=== PATIENT | female | born 1960 | race Caucasian/White ===

== ENCOUNTER 2016-09-30 17:29 | Inpatient (IN) | payer OTHER, MEDICARE ==
[~2016-09-30] VITALS: Ht 167.6 cm; Wt 49.9 kg
--- NOTE | 2016-09-30 17:36 | NUR ---
PT OT TRIAGE WITH C/O +SI WITH PLAN TO OVERDOSE ON BENADRYL. HX OF ANXIETY, DEPRESSION,ADHD. PT DENIES HI, ADMITS TO DRINKING WHISKEY AND SMOKING MARIJUANA LAST NIGHT. VSS. PT TO .
--- NOTE | 2016-09-30 17:56 | NUR ---
PT IN [place] STRETCHER. WANDED AND CHANGED INTO BLUE SCRUBS. FLAT AFFECT. [place] CHURN TENDER TO SEE PT
[2016-09-30] MEDS ORDERED: ALPRAZOLAM2 M2 PO (17:57)
[2016-09-30] MEDS ORDERED: EFFEXOR XR150 M1 PO (17:57)
[2016-09-30] MEDS ORDERED: ADDERALL 30 MG30 MG PO (17:57)
--- NOTE | 2016-09-30 18:17 | NUR ---
PT OPENLY TALKING ABOUT DEPRESSION AND SI. STATES HER ABOUT 5 YEARS AGO AND THAT IS WHEN SHE BECAME DEPRESSED. RECENTLY WAS PACKING FOR A MOVE AND BECAME MORE DEPRESSED SHE PACKED UP PERSONAL BELONGING. VERBALIZED FEELINGS OF UNWORTHINESS A MOTHER. FEELS HER KIDS WOULD BE BETTER OFF WITHOUT HER, ABLE TO COLLECT HER LIFE INSURANCE. PT CALM AND COOPERATIVE AT PRESENT
--- NOTE | 2016-09-30 18:43 | ED PSYCHIATRIC COMPLAINT ---
History of Present Illness General Chief Complaint: Psychiatric Related Complaint Stated Complaint: +SI Source: patient Exam Limitations: no limitations Vital Signs & Intake/Output Vital Signs & Intake/Output Vital Signs Date Time Temp Pulse Resp B/P B/P Pulse O2 O2 Flow FiO2 Mean Ox Delivery Rate 10/01 1045 97.2 98 18 110/66 100 10/01 0621 96.9 81 18 99/58 98 Room Air 09/30 2239 98.4 80 18 114/72 99 Room Air 09/30 2042 96.8 95 20 114/74 98 Room Air 09/30 1800 Room Air 09/30 1735 98.5 110 18 105/72 98 Room Air ED Intake and Output 10/01 0000 09/30 1200 Intake Total Output Total Balance Patient 110 lb Weight Weight Reported by Patient Measurement Method Allergies Coded Allergies: No Known Allergies (09/30/16) Reconcile Medications Alprazolam 2 MG TABLET 1 TAB PO TID ANXIETY (Reported) Dextroamphetamine/Amphetamine (Adderall 30 MG Tablet) 30 MG TABLET 1 TAB PO TID OCD/ADD/COMPULSIONS (Reported) Venlafaxine HCl (Effexor XR) 150 MG CAP.ER.24H 1 CAP PO DAILY MENTAL HEALTH ( Reported) Triage Note: PT OT TRIAGE WITH C/O +SI WITH PLAN TO OVERDOSE ON BENADRYL. HX OF ANXIETY, DEPRESSION,ADHD. PT DENIES HI, ADMITS TO DRINKING WHISKEY AND SMOKING MARIJUANA LAST NIGHT. VSS. PT TO . Triage Nurses Notes Reviewed? yes HPI: Patient is a 56 year old female presents complaining of depression. "I lost all hope, my kids would be better off without me". Depression severe for the past 6 days since patient was looking through a box with photos of her that 5 years ago. Suicidal ideation with thoughts of jumping off of a bridge, walking in front of a train, or overdosing on Benadryl. Patient reports she has attempted overdose on Benadryl previously. Patient drank 2 drinks of alcohol yesterday with mild improvement of her symptoms. Reports she has been compliant with her Effexor, xanax and adderall. Denies overdose, current suicide attempt, cocaine or heroin use. (DEEPA GILL,SOL) Past History Travel History Traveled to [place] past 21 day No Medical History Any Pertinent Medical History? see below for history Psychiatric: anxiety, depression, ADHD Surgical History Surgical History: non-contributory Psychosocial History What is your primary language Taiwanese Tobacco Use: Current Not Daily ETOH Use: occasional use Illicit Drug Use: marijuana Family History Hx Contributory? No (SOL ISRAEL) Review of Systems Review of Systems Constitutional: Denies: chills, fever. EENTM: Reports: no symptoms. Respiratory: Denies: cough, short of breath. Cardiovascular: Denies: chest pain. GI: Denies: abdominal pain. Genitourinary: Reports: no symptoms. Musculoskeletal: Reports: joint pain (left wrist, hx recent fx). Skin: Reports: no symptoms. Neurological/Psychological: Reports: see HPI. Hematologic/Endocrine: Reports: no symptoms. Immunologic/Allergic: Reports: no symptoms. (SOL ISRAEL) Physical Exam Physical Exam General Appearance: alert, awake Head: atraumatic, normal appearance Eyes: Bilateral: normal appearance, PERRL, EOMI. Ears, Nose, Throat: normal pharynx, normal ENT inspection, hearing grossly normal Neck: normal inspection, supple, full range of motion, no midline tenderness Respiratory: normal breath sounds, no respiratory distress, lungs clear Cardiovascular: tachycardia (mild, regular rhythm), no appreciable murmur Gastrointestinal: soft, non-tender Extremities: normal range of motion, cast in place on left wrist. Ecchymosis appears subacute left arm. Neurological/Psychiatric: awake, alert, depressed affect with suicidal ideation Behavoir/Eye Contact/Speech: cooperative Thoughts/Hallucinations: no apparent hallucination Skin: warm/dry SAD PERSONS SAD PERSONS Response Value Age <19 or >45 years? yes 1 Depression/Hopelessness? yes 2 Previous Attempts/Psych Care yes 1 Excessive Ethanol/Drug Use? yes 1 Rational Thinking Loss? yes 2 Single//? yes 1 Stated Future Intent? yes 2 Total 10 SAD PERSONS Done? yes (SOL ISRAEL) Progress Differential Diagnosis: drug intoxication, drug overdose, drug withdrawal, electrolyte abnormality, IC hem/mass/tumor, alcohol intoxication, alcohol withdrawal Plan of Care: Orders Procedure Date/time Status Regular Diet 10/01 B Active Continuous Observation Monitor 10/01 1900 Active Continuous Observation Monitor 10/01 1500 Active Admit to inpatient psych 10/01 1405 Active Continuous Observation Monitor 10/01 1100 Active Continuous Observation Monitor 10/01 0700 Active Continuous Observation Monitor 04/25 1837 Active ACETOMINOPHEN 09/30 1836 Complete SALICYLATE 09/30 1836 Complete ETHANOL 09/30 1836 Complete COMPREHENSIVE METABOLIC PANEL 09/30 1836 Complete CBC WITHOUT DIFFERENTIAL 09/30 1836 Complete ED CRISIS PSYCH CONSULT 09/30 1836 Active URINE DRUG SCREEN FOR ER ONLY 09/30 1751 Complete Current Medications Sig/Luann Start time Last Medication Dose Stop Time Status Admin Venlafaxine HCl 150 MG 0800 10/02 0800 UNVr (Effexor Xr) Laboratory Tests 09/30/16 1855: Anion Gap 14, Estimated GFR > 60, BUN/Creatinine Ratio 32.0 H, Glucose 140 H, Calcium 9.4, Total Bilirubin 0.4, AST 12 L, ALT 19, Alkaline Phosphatase 109, Total Protein 6.3, Albumin 3.6, Globulin 2.7, Albumin/Globulin Ratio 1.3, CBC w Diff NO MAN DIFF REQ, RBC 4.13 L, MCV 84.8, MCH 27.8, RDW 14.5, MPV 7.0 L, Gran % 55.8, Lymphocytes % 33.1, Monocytes % 8.6, Eosinophils % 2.5, Basophils % 0 L, Absolute Granulocytes 2.1, Absolute Lymphocytes 1.3, Absolute Monocytes 0.3, Absolute Eosinophils 0.1, Absolute Basophils 0, PUBS MCHC 32.8 L, Salicylates < 1.0, Acetaminophen < 10.0 L, Serum Alcohol < 10.0 09/30/16 175: Urine Opiates Screen < 100.00, Methadone Screen 144, Barbiturate Screen < 60, Ur Phencyclidine Scrn < 6.00, Amphetamines Screen > 1450 H, U Benzodiazepines Scrn > 800 H, Urine Cocaine Screen > 1000 H, Urine Cannabis Screen 73.20 H Patient unable to be evaluated by orthopedic designer. To be re-evaluated in the morning. Signed out to Dr. Joe at shift change. (SOL ISRAEL) Hand-Off Endorsed To: RAHUL JOE MD Endorsed Time: 0100 Pending: consult (crisis) (SOL [place]RAEL) Hand-Off Endorsed To: LAKESHIA RUFFIN MD Endorsed Time: 0700 Pending: consult (RAHUL JOE MD) Comments: To be hospitalized on [facility] (LAKESHIA RUFFIN MD) Departure Departure Disposition: STILL A PATIENT Condition: Stable Clinical Impression Primary Impression: Depression Qualifiers: Depression Type: unspecified Qualified Code: F32.9 - Major depressive disorder, single episode, unspecified Secondary Impressions: Polysubstance abuse Referrals: PATIENT HAS NO PRIMARY CARE DR (PCP/Family) Departure Forms: Customer Survey General Discharge Information (SOL ISRAEL) PA/WARDROBE CUSTODIAN Co-Sign Statement Statement: ED Attending supervision documentation- [X] I saw and evaluated the patient. I have also reviewed all the pertinent lab results and diagnostic results. I agree with the findings and the plan of care as documented in the PA's/WARDROBE CUSTODIAN's documentation. [X] I have reviewed the ED Record and agree with the PA's/WARDROBE CUSTODIAN's documentation. [] Additions or exceptions (if any) to the PAs/WARDROBE CUSTODIAN's note and plan are summarized below: [] (HEATH ZHANG,RAHUL Lam) Departure Time of Disposition: 1405 Psych Admission Note Psychiatric Admission: I have seen and evaluated SWETHA HAMM. I have also reviewed all the pertinent lab results and diagnostic results. HANSELADDISWETHA will be admitted to our inpatient Psychiatric unit for treatment and care. (LAKESHIA RUFFIN MD)
--- NOTE | 2016-09-30 19:09 | NUR ---
LABS SENT (BLUE,SST,LAV,GARVEY)
[2016-09-30 19:23] LABS: MEAN CORPUSCULAR HGB CONC 32.8 G/DL (33.0-37.0); WHITE BLOOD CELL COUNT 3.9 /CUMM (4.8-10.8)
[2016-09-30 19:33] LABS: ABSOLUTE BASOPHIL COUNT 0 /CUMM (0.0-0.2); ABSOLUTE EOSINOPHIL COUNT 0.1 /CUMM (0.0-0.7); ABSOLUTE GRANULOCYTE CT 2.1 /CUMM (1.4-6.5); ABSOLUTE LYMPH COUNT 1.3 /CUMM (1.2-3.4); ABSOLUTE MONOCYTE COUNT 0.3 /CUMM (0.10-0.60); BASOPHIL % 0 % (0.0-2.0); EOSINOPHIL % 2.5 % (0-5); MEAN CORPUSCULAR HGB 27.8 PG (27.0-31.0); MEAN CORPUSCULAR VOLUME 84.8 FL (81.0-99.0); PLATELET COUNT 247 /CUMM (130-400); RBC DISTRIBUTION WIDTH 14.5 % (11.5-14.5); RED BLOOD CELL CT 4.13 /CUMM (4.20-5.40)
[2016-09-30 19:53] LABS: GRANULOCYTE % 55.8 % (42.2-75.2)
--- NOTE | 2016-09-30 20:02 | NUR ---
PT DENIES DRUG USE OTHER THEN MARIJUANA. URINE DRUG SCREEN POSITIVE FOR COCAINE. EXPLAINED TO PT SHE NEEDS TO HAVE DRUGS OUT OF HER SYSTEM BEFORE BEING SEEN BY CRISIS.
--- NOTE | 2016-09-30 20:03 | NUR ---
MEDICATED WITH XANAX, HOME DOSE
--- NOTE | 2016-09-30 21:22 | NUR ---
RESTING QUIETLY IN ROOM
--- NOTE | 2016-09-30 21:55 | NUR ---
Crisis unable to evaluate pt this evening. Pt presenting as sedated, slurred speech, difficulty keeping her eyes open. Pt denies drug or etoh use. Pt reports SI/depression and history of inpatient tx. Pt informed she will be evaluated by crisis in the morning.
--- NOTE | 2016-09-30 22:30 | NUR ---
PT ASLEEP ON BED IN ROOM 14. PT TO BE EVALUATED BY CRISIS IN AM. SITTER AT [facility] FOR SAFETY. RESPIRATIONS EQUAL AND UNLABORED.
--- NOTE | 2016-09-30 22:55 | ED PSY CRISIS COLLATERAL NOTE ---
Collateral Note Collateral Note Family/Inform/Addie Contacts: Collateral provided by pt son Rigo Mitchell [phone]. He reports pt had to move out of apartment on Thursday and has been living in a hotel. He reports past week pt has been anxious and depressed saying "crazy stuff". He reports pt has been diagnosed bi-polar. He reports pt has been drinking and using cocaine. he reports she has a hx of inpatient psychiatric treatment and he thinks she was at [facility] for about a week two months ago. He isn't aware of any outpatient treatment. He thinks pt is prescribed Xanax and adderall for ADHD as well as an antidepressant. He reports he brought her to [facility] ED for an evaluation.
--- NOTE | 2016-09-30 23:31 | NUR ---
ASSUMED CARE OF PT FROM KASSIE PATEL. PT SLEEPING WITH REGULAR RR NOTED. SITTER REMAINS AT [facility] FOR SAFETY. WILL CTM.
--- NOTE | 2016-10-01 01:49 | NUR ---
PT SLEEPING WITH REGULAR EVEN AND UNLABORED RESPIRATIONS SITTER REMAINS AT BEDSIDE FOR SAFETY WILL CTM
--- NOTE | 2016-10-01 03:28 | NUR ---
PT SLEEPING WITH REGULAR RR NOTED. SITTER REMAINS PRESENT.
--- NOTE | 2016-10-01 06:21 | NUR ---
PT AWAKE AND ALERT. DENIES ANY NEEDS AT THIS TIME. AWARE BREAKFAST WILL BE COMING. PT CALM AND COOPERATIVE. SITTER REMAINS PRESENT.
--- NOTE | 2016-10-01 07:15 | NUR ---
PT SITTING UP ON STRETCHER AT THIS TIME, OFFERS NO COMPLAINTS. SITTER REMAINS PRESENT. WILL CTM
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
--- NOTE | 2016-10-01 10:27 | NUR ---
PT MEDICATED PER EMAR AT THIS TIME.
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
--- NOTE | 2016-10-01 13:39 | NUR ---
PER CRISIS, PT TO BE ADMITTED TO [facility]
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
--- NOTE | 2016-10-01 17:10 | NUR ---
REPORT GIVEN TO [facility]. DISTRIBUTION CALLED FOR PT TRNASPORT
[2016-10-01 17:54] VITALS: BP 130/62
[2016-10-01 20:04] VITALS: BP 129/79
--- NOTE | 2016-10-01 21:18 | NUR ---
PT IS VISIBLE ON UNIT, SOCIAL WITH PEERS AND MAKING FREQUENT PHONE CALLS THROUGHOUT EVENING. AT TIMES PT CAN BE PRESSURED WHEN IT COMES TO MEDS BUT OVERALL PT IS COOPERATIVE AND COMPLIANT WITH STAFF. ATTENDED WRAP UP MEETING. PT DID DISCLOSE SI AT 1600 VITAL SIGNS BUT REPORTS NO PLAN OR INTENTION TO HARM SELF WHILE ON UNIT. PT HAS AN ANXIOUS MOOD AND IRRITABLE AFFECT.
--- NOTE | 2016-10-02 06:07 | NUR ---
PT HYPERVERBAL AT POINTS. TYLENOL FOR PAIN. PT WOULD LIKE A PRN FOR SLEEP.
[2016-10-02 07:54] VITALS: BP 130/75
--- NOTE | 2016-10-02 08:56 | Cons- Endocrinology ---
General Information and HPI Consulting Request Date of Consult: 10/02/16 Requested By: Yareli Reason for Consult: evaluation and management of hyperthyroidism Source of Information: patient Exam Limitations: no limitations History of Present Illness: Patient was diagnosed with Graves' disease approximately 6 years ago. She was on medication for a short period of time. Because she left her malariologist and then the treatment was discontinued. Over the past couple of weeks, she has lost 12 pounds, has been feeling anxious, depressed and has had difficulty in sleeping. She was admitted for major depression and suicidal ideation. Blood work demonstrated TSH less than 0.015 and free T4 6.02. Allergies/Medications Allergies: Coded Allergies: No Known Allergies (09/30/16) Home Med List: Alprazolam 2 MG TABLET 1 TAB PO TID ANXIETY (Reported) Dextroamphetamine/Amphetamine (Adderall 30 MG Tablet) 30 MG TABLET 1 TAB PO TID OCD/ADD/COMPULSIONS (Reported) Venlafaxine HCl (Effexor XR) 150 MG CAP.ER.24H 1 CAP PO DAILY MENTAL HEALTH ( Reported) Review of Systems Review of Systems Constitutional: Reports: unexplained weight loss. Cardiovascular: Denies: chest pain, palpitations. Respiratory: Denies: short of breath. GI: Denies: abdominal pain. Neurological/Psychological: Reports: anxiety, depressed, other (having difficulty sleeping). Hematologic/Endocrine: Reports: other (fine tremors). Past History Travel History Traveled to [place] past 21 day No Medical History Psychiatric: anxiety, depression, ADHD Endocrine: Grave's disease Blood Disorders: anemia Surgical History Surgical History: non-contributory Psychosocial History ETOH Use: occasional use Illicit Drug Use: marijuana Employment History Employment: Disability Profession/Employer: none Exam & Diagnostic Data Last 24 Hrs of Vital Signs/I&O Vital Signs Date Time Temp Pulse Resp B/P B/P Pulse O2 O2 Flow FiO2 Mean Ox Delivery Rate 10/02 0754 99.4 93 130/75 10/01 2004 98.7 90 129/79 10/01 1754 98.1 95 130/62 10/01 1640 98.6 76 18 126/86 98 Room Air 10/01 1420 97.7 93 15 124/76 98 Room Air Room Air 10/01 1045 97.2 98 18 110/66 100 Intake & Output 10/02 1600 10/02 0800 10/02 0000 Intake Total Output Total Balance Patient 110 lb Weight Physical Exam General Appearance: anxious, restless Ears, Nose, Throat: stare and lid lag; no Graves' ophthalmopathy Neck: thyromegaly Respiratory: lungs clear Cardiovascular: regular rate/rhythm Gastrointestinal: non-tender Extremities: no edema Labs/Andry Results: Laboratory Tests 09/30 09/30 09/30 1855 1837 1752 Chemistry Sodium (137 - 145 mmol/L) 139 Potassium (3.5 - 5.1 mmol/L) 3.9 Chloride (98 - 107 mmol/L) 99 Carbon Dioxide (22 - 30 mmol/L) 26 Anion Gap (5 - 16) 14 BUN (7 - 17 mg/dL) 16 Creatinine (0.5 - 1.0 mg/dL) 0.5 Estimated GFR (>60 ml/min) > 60 BUN/Creatinine Ratio (7 - 25 %) 32.0 H Glucose (65 - 99 mg/dL) 140 H Hemoglobin A1c (4.2 - 5.8 %) 5.5 Calcium (8.4 - 10.2 mg/dL) 9.4 Total Bilirubin (0.2 - 1.3 mg/dL) 0.4 AST (14 - 36 U/L) 12 L ALT (9 - 52 U/L) 19 Alkaline Phosphatase (<127 U/L) 109 Total Protein (6.3 - 8.2 g/dL) 6.3 Albumin (3.5 - 5.0 g/dL) 3.6 Globulin (1.9 - 4.2 gm/dL) 2.7 Albumin/Globulin Ratio (1.1 - 2.2 %) 1.3 Triglycerides (<150 mg/dL) 99 Cholesterol (<200 MG/DL) 139 LDL Cholesterol, Calc (65 - 129 mg/dL) 56 L HDL Cholesterol (40 - 60 mg/dL) 64 H Cholesterol/HDL Ratio (0.00 - 4.23 %) 2.2 Vitamin B12 (239 - 931 pg/mL) 261 Folate (2.76 - 20.0 ng/mL) 5.5 TSH (0.270 - 4.200 uIU/mL) < 0.015 L Free T4 (0.64 - 1.79 ng/dL) 6.02 H Thyroxine (T4) (4.5 - 10.9 ug/dL) 23.5 H Total T3 (0.97 - 1.69 ng/mL) Pending Thyroid Stim Immunoglob Pending Hematology CBC w Diff NO MAN DIFF REQ WBC (4.8 - 10.8 /CUMM) 3.9 L RBC (4.20 - 5.40 /CUMM) 4.13 L Hgb (12.0 - 16.0 G/DL) 11.5 L Hct (37 - 47 %) 35.0 L MCV (81.0 - 99.0 FL) 84.8 MCH (27.0 - 31.0 PG) 27.8 RDW (11.5 - 14.5 %) 14.5 Plt Count (130 - 400 /CUMM) 247 MPV (7.4 - 10.4 FL) 7.0 L Gran % (42.2 - 75.2 %) 55.8 Lymphocytes % (20.5 - 51.1 %) 33.1 Monocytes % (1.7 - 9.3 %) 8.6 Eosinophils % (0 - 5 %) 2.5 Basophils % (0.0 - 2.0 %) 0 L Absolute Granulocytes (1.4 - 6.5 /CUMM) 2.1 Absolute Lymphocytes (1.2 - 3.4 /CUMM) 1.3 Absolute Monocytes (0.10 - 0.60 /CUMM) 0.3 Absolute Eosinophils (0.0 - 0.7 /CUMM) 0.1 Absolute Basophils (0.0 - 0.2 /CUMM) 0 PUBS MCHC (33.0 - 37.0 G/DL) 32.8 L Immunology Thyroglobulin Antibody (< 61 U/mL) > 500 H Thyroid Peroxidase Ab (< 61 U/mL) > 1300 H Toxicology Salicylates (0 - 20.0 mg/dL) < 1.0 Urine Opiates Screen (>2000 NG/ML) < 100.00 Methadone Screen (>300 NG/ML) 144 Acetaminophen (10.0 - 30.0 ug/mL) < 10.0 L Barbiturate Screen (>200 NG/ML) < 60 Ur Phencyclidine Scrn (>25 NG/ML) < 6.00 Amphetamines Screen (>1000 NG/ML) > 1450 H U Benzodiazepines Scrn (>200 NG/ML) > 800 H Urine Cocaine Screen (>300 NG/ML) > 1000 H Urine Cannabis Screen (>50 NG/ML) 73.20 H Serum Alcohol (<10 MG/DL) < 10.0 Assessment/Plan Assessment/Plan Patient has hx of Graves' disease. Over the past couple of weeks, she has lost 12 pounds, has been feeling anxious, depressed and has had difficulty in sleeping. She was admitted for major depression and suicidal ideation. Blood work demonstrated TSH less than 0.015 and free T4 6.02. Her WBC was 3.9 on admission. 1. add-on TT3, thyroid antibody panel and TSI. 2. start Methimazole 10 mg twice a day. 3. start Propranolol 20 mg twice a day (hold it if her SBP is < 100 or HR is < 80); 4. monitor free T4 and CBC tomorrow. 5. Once her thyroid function is better controlled, patient should consider either JESSICA or thyroid surgery. The plan has been discussed with patient. will follow. Consult Acknowledgment - Thank you for your consult request.
[2016-10-02 12:25] VITALS: BP 119/72
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
--- NOTE | 2016-10-02 14:35 | SOCIAL WORKER PROG NOTE PSYCH ---
Social Work Progress Note Progress Note Pt unsure if she can manage her OCD symptoms without Adderall, she states she is feeling "uncomfortable, I usually have to count everything and organize, and the cubicles". She reports no one can touch anything in my house. Pt is irritable and depressed, feels abandonment and loss, and at this point feels suicidal. * Contacts with family and significant others in treatment, including family meeting(s) * Family attitudes * Community resource contacts and liaison with other clinicians/agencies
--- NOTE | 2016-10-02 14:35 | SOCIAL WORKER TX PLAN PSYCH ---
Treatment Plan - Please Document: - Evidence that there is ongoing collaboration between - the patient and the interdisciplinary team, - including the patient's active participation and - responsibility for engaging in the treatment regimen, - and that the treatment plan is individualized and - relevant to the patient's conditions. - Treatment plan should reflect documentation indicating - that all active therapeutic efforts are included. Strengths/Capabilities: reaches out for help, supportive family Physical Limitations (Interventions): recently broke her arm from falling and has a cast Problem/Goals #1 Problem #1: depression Goal (Short Term): Today I will attend 2 groups Today I will identify 2 stressors Goal (Detention): Today I will identify 2 positive supports Today I will work on recognizing 3 emotions I am feeling I will learn and utilize 3 coping skills Interventions: Learn ways to manage depressive symptoms accordingly and identify positive supports to manage life stressors and mood fluctuations. To use milieu support, as well as group and indiviudal therapy medication management Modalities: Encourage groups, education on mental health provide CBT treatment, family meeting. Relaxation, recovery based groups, symptom management Problem/Goals #2 Problem #2: alcohol dependence/abuse Goal (Short Term): Identify 3 triggers for use Identify 3 sober supports Identify 3 coping skills Goal (Quality Control Engineer): I will have family meeting on unit during my hospitalization I will attend all AA groups on unit I will set up aftercare for dual diagnosis program to address both mental health and substance abuse concerns Interventions: Learn ways to manage cravings, triggers and other symptoms related to addiction. Identify positive supports to manage life stressors and mood fluctuations. To use milieu support, as well as group and indiviudal therapy Modalities: Encourage groups, education on mental health provide CBT treatment, family meeting. Relaxation, recovery based groups, symptom management DSM5/PS Stressors/Medical Prob Diagnosis' (DSM 5, Stressors, Medical): Unspecified Depression F32.9, stim use d/o, f14.20, cannabis use d/o f12.20 Current GAF: 25 Treatment Team - Responsibilities of members of the treatment team include: - Medication Management- MD or PEARLER - Medication Administration and Monitoring- Nurse - Group Therapy- Occupational Therapist - 1:1 Therapy,Disch Planning,family involvement-Memorial Marker Designer
[2016-10-02 15:44] VITALS: BP 125/90
[2016-10-02 20:08] VITALS: BP 125/76
--- NOTE | 2016-10-02 22:11 | NUR ---
PT IS VISIBLE ON UNIT, MOSTLY STAYING TO HERSELF. PT HAS MINIMAL INTERACTION WITH PEERS. ATTENDED WRAP UP MEETING AND AA THIS EVENING. COOPERATIVE AND COMPLIANT WITH STAFF. NO COMPLAINTS OR SI REPORTED. PT HAS A STABLE MOOD AND IRRITABLE AFFECT.
--- NOTE | 2016-10-03 05:31 | NUR ---
PT SLEPT MUCH BETTER.
[2016-10-03 07:58] LABS: ABSOLUTE BASOPHIL COUNT 0 /CUMM (0.0-0.2); ABSOLUTE EOSINOPHIL COUNT 0.2 /CUMM (0.0-0.7); ABSOLUTE GRANULOCYTE CT 1.9 /CUMM (1.4-6.5); ABSOLUTE LYMPH COUNT 2.2 /CUMM (1.2-3.4); ABSOLUTE MONOCYTE COUNT 0.5 /CUMM (0.10-0.60); BASOPHIL % 0 % (0.0-2.0); EOSINOPHIL % 3.5 % (0-5); GRANULOCYTE % 39.8 % (42.2-75.2); HEMATOCRIT 35.8 % (37-47); MEAN CORPUSCULAR HGB 28.1 PG (27.0-31.0); MEAN CORPUSCULAR VOLUME 85.3 FL (81.0-99.0); MEAN PLATELET VOLUME 7.4 FL (7.4-10.4); PLATELET COUNT 253 /CUMM (130-400); RBC DISTRIBUTION WIDTH 14.4 % (11.5-14.5); RED BLOOD CELL CT 4.19 /CUMM (4.20-5.40); WHITE BLOOD CELL COUNT 4.9 /CUMM (4.8-10.8)
[2016-10-03 08:13] VITALS: BP 117/68
--- NOTE | 2016-10-03 08:21 | PN- Endocrinology ---
Assessment/Plan Assessment: Patient has hx of Graves' disease. Over the past couple of weeks, she has lost 12 pounds, has been feeling anxious, depressed and has had difficulty in sleeping. She was admitted for major depression and suicidal ideation. Blood work demonstrated TSH less than 0.015 and free T4 6.02. Her WBC was 3.9 on admission. Her TT3 was 4.67; anti TPO was > 1300 and anti TG > 500. On 10/02/2016 , She was started on Methimazole 10 mg twice a day and Propranolol 20 mg twice a day (hold it if her SBP is < 100 or HR is < 80). She feels slightly better. The lab report from this morning is still pending. Plan: 1. follow free T4 and CBC from this morning. 2. continue the current methimazole 10 mg twice a day and Propranolol 20 mg twice a day for now. will follow. Subjective Subjective: She feels slight better this morning. Her HR is between 67 and 93. Objective Last 24 Hrs of Vital Signs/I&O Vital Signs Date Time Temp Pulse Resp B/P B/P Pulse O2 O2 Flow FiO2 Mean Ox Delivery Rate 10/03 0813 97.7 77 117/68 10/02 2215 85 125/76 10/02 2008 98.9 85 125/76 10/02 1544 76 125/90 10/02 1225 67 119/72 10/02 1016 99.4 93 18 130/75 Results Pertinent Lab/Andry Results: Laboratory Tests 10/04 627 Chemistry Free T4 Pending Hematology CBC w Diff Pending WBC Pending RBC Pending Hgb Pending Hct Pending MCV Pending MCH Pending RDW Pending Plt Count Pending MPV Pending PUBS MCHC Pending
[2016-10-03 12:45] VITALS: BP 104/47
--- NOTE | 2016-10-03 14:05 | NUR ---
PT IS COMPLIANT AND COOPERATIVE. MOOD IS STABLE WITH A CONSTRICTED AFFECT. PT DENIES SI AT THIS TIME, NO COMPLAINTS OFFERED. PT WAS WITHDRAWN IN BED DURING THE AM- PRESENT MORE IN THE COMMUNITY AFTER LUNCH. PT IS INTERACTING WITH PEERS AND STAFF. PT HAS ATTENDED ONE GROUP. VITALS ARE STABLE, APPETITE IS GOOD.
[2016-10-03 16:24] VITALS: BP 107/57
--- NOTE | 2016-10-03 16:39 | SOCIAL WORKER PROG NOTE PSYCH ---
Social Work Progress Note Progress Note Pt reports she feels like " Im not needed, my kids not need me, I broke up with my bf in August, my exhusband of 20 years 5 years ago, my sister has cancer and I cant even look at her, what's the point of me being here". Pt states she is struggling with OCD symptoms, and feels suicidal, hopeless and lost. Pt was cooperative and agreed to signing releases for Vivek another exhusband and good friend and for her son Rigo.
[2016-10-03 20:05] VITALS: BP 112/65
--- NOTE | 2016-10-03 20:09 | History & Physical ---
General Information and HPI MD Statement: I have seen and personally examined SWETHA HAMM and documented this H&P. The patient is a 56 year old F who presented with a patient stated chief complaint of "I lost all hope my kids would be better off without me"]. Source of Information: patient Exam Limitations: no limitations History of Present Illness: 56 year old female C/o of depression and SI, also lost 12 lbs in the last couple of weeks, feels anxious and depressed not sleeping, will be admitted for evaluation and treatment. Allergies/Medications Allergies: Coded Allergies: No Known Allergies (09/30/16) Home Med list Alprazolam 2 MG TABLET 1 TAB PO TID ANXIETY (Reported) Dextroamphetamine/Amphetamine (Adderall 30 MG Tablet) 30 MG TABLET 1 TAB PO TID OCD/ADD/COMPULSIONS (Reported) Venlafaxine HCl (Effexor XR) 150 MG CAP.ER.24H 1 CAP PO DAILY MENTAL HEALTH ( Reported) Compliance With Home Meds: UNKNOWN Past History Travel History Traveled to [place] past 21 day No Medical History Psychiatric: anxiety, depression, ADHD Endocrine: Grave's disease Blood Disorders: anemia Isolation History: Standard Surgical History Surgical History: non-contributory Past Family/Social History Psychosocial History Where do you live? Home ETOH Use: occasional use Illicit Drug Use: marijuana Employment History Employment Disability Profession/Employer none Review of Systems Review of Systems Constitutional: Reports: see HPI. Exam & Diagnostic Data Last 24 Hrs of Vital Signs/I&O Vital Signs Date Time Temp Pulse Resp B/P B/P Pulse O2 O2 Flow FiO2 Mean Ox Delivery Rate 10/03 1624 84 107/57 10/03 1245 76 104/47 10/03 0912 77 117/68 10/03 0813 97.7 77 117/68 10/02 2215 85 125/76 10/03 2007 98.9 85 125/76 Physical Exam General Appearance Alert, Oriented X3, Cooperative, No Acute Distress Skin No Rashes HEENT PERRLA, EOMI Neck Supple, No JVD, No thryomegaly Lymphatic Axillary nl, Cervical nl Cardiovascular Regular Rate Lungs Clear to Auscultation Abdomen Normal Bowel Sounds, Soft, No Tenderness Neurological Exam Findings: Normal Gait, Normal Speech, Strength at 5/5 X4 Ext, Normal Tone, Sensation Intact, Cranial Nerves 3-12 NL, Reflexes 2+ Cranial Nerves II through XII: Intact Extremities No Clubbing, No Cyanosis, No Edema, Normal Pulses Vascular Normal Pulses, Pulses Symmetrical Last 24 Hrs of Labs/Andry: Laboratory Tests 10/03/16 0628: Free T4 4.07 H, CBC w Diff MAN DIFF ORDERED, RBC 4.19 L, MCV 85.3, MCH 28.1, RDW 14.4, MPV 7.4, Gran % 39.8 L, Lymphocytes % 45.7, Monocytes % 11.0 H, Eosinophils % 3.5, Basophils % 0 L, Absolute Granulocytes 1.9, Absolute Lymphocytes 2.2, Absolute Monocytes 0.5, Absolute Eosinophils 0.2, Absolute Basophils 0, Platelet Estimate ADEQUATE, Polychromasia 1+, Anisocytosis 1+, PUBS MCHC 33.0 Assessment/Plan As Ranked By This Provider Problem List: 1. Depression Qualifiers Depression Type: unspecified Qualified Code: F32.9 - Major depressive disorder, single episode, unspecified 2. Polysubstance abuse Miscellaneous Miscellaneous Documentation Attending Case Discussed With: LINDA ZHANG,SURY Gibson Primary Care Physician: PATIENT HAS NO PRIMARY CARE DR Patient sees these Specialists psychiatry Level of Patient Care: Robby Consults Needed: Consulting Specialty: Psychiatry Consulting Physician: Dr. navas Reason for Consult: Depression
--- NOTE | 2016-10-03 21:35 | CP SOUTH PROGRESS NOTE PSYCH ---
Psych (Inpt) Progress Note Progress Note Include the following elements, when applicable: Involvement in the active treatment of the patient with behavioral observations of the patient and the patient's response to the treatment. Review of the ongoing treatment process in the context of the treatment plan. Indication of how multi-disciplinary staff members are carrying out the treatment plan. Plans for future interventions and recommendations for revision of the treatment plan. Liaison with other physicians/providers. Progress Note: PSYCHIATRIST NOTE, 10/03/2016: I discussed this patient's progress thus far, current mental status, treatment and discharge planning with staff team today in the daily morning ITTM and also met with her again myself in individual session. Patient looked a good deal better today with her hair washed and combed out, was not visibly anxious and not as irritable as described previously (possibly contributed to by physiologic withdrawal from Adderall). She c/o "OCD" symptoms which seemed vague and again were not evident from her behavior during the interview which was quite articulate, goal-directed and to the point. Patient denied any side effects from initial increase in dose of Effexor XR by 37.5mg yesterday and agreed to going up another 37.5mg, to a total of 225mg, over this weekend. Patient noted sleeping well last night with the one dose of trazodone, 50mg, and didn't require the repeat PRN dose; I was pleased that she had slept better last night than the one before despite reduction in dose of Xanax; since admission dose has been tapered from 2mg 3x/day to 1mg 4x/day; I agreed to make no further reduction in Xanax dose over the coming weekend but that we would re-evaluate for resuming taper on 10/06/2016; she is still significantly hyperthyroid though free T4 has gone down from about 6 to approximately 4 since rn documentation specialist, Dr. Dalton, began her on Tapazole since admission; pulse and blood pressure have been WNL thus far. Patient described chronic racing thoughts and feeling "my brain is going too fast." I discussed with her a trial on low dose PRN Abilify for these symptoms; after further description of R/B/SE patient agreed to try the Abilify over the weekend.
--- NOTE | 2016-10-04 06:37 | NUR ---
PATIENT WAS UP TO BATHROOM ONCE, OTHERWISE SLEPT ALL NIGHT.
[2016-10-04 08:05] VITALS: BP 123/73
[2016-10-04 12:21] VITALS: BP 109/59
--- NOTE | 2016-10-04 13:39 | PN- Endocrinology ---
Assessment/Plan Assessment: Patient has hx of Graves' disease. Over the past couple of weeks, she has lost 12 pounds, has been feeling anxious, depressed and has had difficulty in sleeping. She was admitted for major depression and suicidal ideation. Blood work demonstrated TSH less than 0.015 and free T4 6.02. Her WBC was 3.9 on admission. Her TT3 was 4.67; anti TPO was > 1300 and anti TG > 500. On 10/02/2016 , She was started on Methimazole 10 mg twice a day and Propranolol 20 mg twice a day (hold it if her SBP is < 100 or HR is < 80). She feels slightly better. Repeat blood work done on 10/03-- free T4 4.07 and WBC 4.9. Plan: continue the current treatment. repeat LFT, CBC, free T4 and TT3 next Thursday. will follow. Subjective Subjective: she still feels shaky. Objective Last 24 Hrs of Vital Signs/I&O Vital Signs Date Time Temp Pulse Resp B/P B/P Pulse O2 O2 Flow FiO2 Mean Ox Delivery Rate 10/04 1221 77 109/59 10/04 0834 83 123/73 10/04 0805 98.6 83 123/73 10/03 2209 98.7 82 18 112/65 10/03 2005 98.7 82 11265 10/03 1624 84 107/57
--- NOTE | 2016-10-04 14:20 | NUR ---
PT WAS VISIBLE IN THE [place]. HER GOAL WAS TO MAKE DISCHARGE PLANS. PT WENT TO BOTH PLANNING AND [employer]OCUS GROUP TODAY, AND HAS SOME INTERACTIONS WITH PEERS. PT WAS SUGGESTED BY RN TO STAY AWAY FROM THE PHONE AFTER A PHONE CALL THAT LEFT HER AGITATED. PT HAS BEEN ABLE TO KEEP GOOD BEHAVIOR CONTROL, DEPSITE FEELING UPSET. IN THE [place] PT HAS BEEN COMPLIANT WITH THE RULES OF THE UNIT, AND DENIES THOUGHTS OF HURTING SELF.
--- NOTE | 2016-10-04 14:45 | CP SOUTH PROGRESS NOTE PSYCH ---
Psych (Inpt) Progress Note Progress Note Include the following elements, when applicable: Involvement in the active treatment of the patient with behavioral observations of the patient and the patient's response to the treatment. Review of the ongoing treatment process in the context of the treatment plan. Indication of how multi-disciplinary staff members are carrying out the treatment plan. Plans for future interventions and recommendations for revision of the treatment plan. Liaison with other physicians/providers. Progress Note: Pt notes that she continues to be depressed and anxious. She is very upset about BDZ taper and insist that "the only thing I want is xanax." Attempted some psychoeducation on BDZ. Pt remained quite adamant. To SI or HI she stated, "I don't know." Denied seeking means to kill herself. Current Medications Sig/Luann Start time Last Medication Dose Route Stop Time Status Admin Acetaminophen 1,000 MG Q4P PRN 10/02 1115 AC 10/04 PO 0952 Alprazolam 1 MG 0800,1300,1700,2200 10/03 1700 AC 10/04 PO 10/10 1659 1323 Aripiprazole 2 MG Q4H PRN 10/03 1745 AC 10/04 PO 1133 Gabapentin 300 MG 0800,1300,1700,2200 10/03 2200 AC 10/04 PO 1323 Gabapentin 300 MG 0800,1600,0 10/02 1600 DC 10/03 PO 0912 Gabapentin 300 MG Q4H PRN 10/02 1345 AC 10/04 PO 1418 Methimazole 10 MG BID 10/02 1000 AC 10/04 PO 0835 Propranolol HCl 20 MG BID 10/02 1000 AC 10/04 PO 0834 Trazodone HCl 50 MG AT BEDTIME 10/02 2200 AC 10/03 PO 2209 Trazodone HCl 50 MG AT BEDTIME NEED.. 10/02 1345 AC PO Venlafaxine HCl 75 MG 1700 10/03 1700 AC 10/03 PO 1641 Venlafaxine HCl 150 MG 0800 10/02 0800 AC 10/04 PO 0834 Laboratory Tests 10/03 0628 Chemistry Free T4 (0.64 - 1.79 ng/dL) 4.07 H Hematology CBC w Diff MAN DIFF ORDERED WBC (4.8 - 10.8 /CUMM) 4.9 RBC (4.20 - 5.40 /CUMM) 4.19 L Hgb (12.0 - 16.0 G/DL) 11.8 L Hct (37 - 47 %) 35.8 L MCV (81.0 - 99.0 FL) 85.3 MCH (27.0 - 31.0 PG) 28.1 RDW (11.5 - 14.5 %) 14.4 Plt Count (130 - 400 /CUMM) 253 MPV (7.4 - 10.4 FL) 7.4 Gran % (42.2 - 75.2 %) 39.8 L Lymphocytes % (20.5 - 51.1 %) 45.7 Monocytes % (1.7 - 9.3 %) 11.0 H Eosinophils % (0 - 5 %) 3.5 Basophils % (0.0 - 2.0 %) 0 L Absolute Granulocytes (1.4 - 6.5 /CUMM) 1.9 Absolute Lymphocytes (1.2 - 3.4 /CUMM) 2.2 Absolute Monocytes (0.10 - 0.60 /CUMM) 0.5 Absolute Eosinophils (0.0 - 0.7 /CUMM) 0.2 Absolute Basophils (0.0 - 0.2 /CUMM) 0 Platelet Estimate (ADEQUATE) ADEQUATE Polychromasia 1+ Anisocytosis 1+ PUBS MCHC (33.0 - 37.0 G/DL) 33.0 Vital Signs Date Time Temp Pulse Resp B/P B/P Pulse O2 O2 Flow FiO2 Mean Ox Delivery Rate 10/04 1221 77 109/59 10/04 0834 83 123/73 10/04 0805 98.6 83 123/73 10/03 2209 98.7 82 18 112/65 10/03 2005 98.7 82 11265 10/03 1624 84 107/57 MSE Appears as stated age. Defensive, limited cooperative behavior, good, appropriate eye contact. Nl speech rate and prosody. No psychomotor retardation or agitation. Mood fine Affect extremely irritable, constricted, appropriate, non-liable. Linear and goal directed thought process. Denies SI or HI. Does not appear to be responding to internal stimuli. Denies AVHs, paranoia, or delusions. I/J: limited A/P: Pt with hx of Bipolar disorder and PSD now with marked irritability around BDZ taper. - Continue current medication regimen - Encouraged pt to try the gabapentin PRNs
[2016-10-04 15:42] VITALS: BP 115/55
--- NOTE | 2016-10-04 18:38 | NUR ---
PT IS COMPLIANT AND COOPERATIVE WITH UNIT RULES. PT IS OUT IN THE COMMUNITY INTERACTING WELL WITH STAFF AND PEERS. PT HAS HAD NO BEHAVIORAL ISSUES THIS SHIFT. PT MOOD IS STABLE WITH A FULL CONSTRICTED AFFECT. PT DENIES SI THOUGHTS.
[2016-10-04 20:05] VITALS: BP 122/73
--- NOTE | 2016-10-05 05:19 | NUR ---
PATIENT UP TO BATHROOM ONCE, OTHERWISE SLEPT.
[2016-10-05 08:01] VITALS: BP 113/65
--- NOTE | 2016-10-05 11:30 | CP SOUTH PROGRESS NOTE PSYCH ---
Psych (Inpt) Progress Note Progress Note Include the following elements, when applicable: Involvement in the active treatment of the patient with behavioral observations of the patient and the patient's response to the treatment. Review of the ongoing treatment process in the context of the treatment plan. Indication of how multi-disciplinary staff members are carrying out the treatment plan. Plans for future interventions and recommendations for revision of the treatment plan. Liaison with other physicians/providers. Progress Note: Pt very irritable and requesting more xanax. She has not been utilizing the gabapentin PRNs even though notes they are helpful. Encouraged her to do so. Notes "very edgy and bad yesterday." Denies SI or HI. Notes did not sleep at all. Per RN report, up for bathroom x1, slept all night. Current Medications Sig/Luann Start time Last Medication Dose Route Stop Time Status Admin Acetaminophen 1,000 MG Q4P PRN 10/02 1115 AC 10/04 PO 2048 Alprazolam 1 MG 0800,1300,1700,2200 10/03 1700 AC 10/05 PO 05/05 1659 0933 Aripiprazole 2 MG Q4H PRN 10/03 1745 AC 10/04 PO 1510 Gabapentin 300 MG 0800,1300,1700,2200 10/03 2200 AC 10/05 PO 0934 Gabapentin 300 MG Q4H PRN 10/02 1345 AC 10/05 PO 1021 Methimazole 10 MG BID 10/02 1000 AC 10/05 PO 0933 Propranolol HCl 20 MG BID 10/02 1000 AC 10/05 PO 0934 Trazodone HCl 50 MG AT BEDTIME 10/02 2200 AC 10/04 PO 2140 Trazodone HCl 50 MG AT BEDTIME NEED.. 10/02 1345 AC PO Venlafaxine HCl 75 MG 1700 10/03 1700 AC 10/04 PO 1704 Venlafaxine HCl 150 MG 0800 10/02 0800 AC 10/05 PO 0934 Laboratory Tests 10/03 0628 Chemistry Free T4 (0.64 - 1.79 ng/dL) 4.07 H Hematology CBC w Diff MAN DIFF ORDERED WBC (4.8 - 10.8 /CUMM) 4.9 RBC (4.20 - 5.40 /CUMM) 4.19 L Hgb (12.0 - 16.0 G/DL) 11.8 L Hct (37 - 47 %) 35.8 L MCV (81.0 - 99.0 FL) 85.3 MCH (27.0 - 31.0 PG) 28.1 RDW (11.5 - 14.5 %) 14.4 Plt Count (130 - 400 /CUMM) 253 MPV (7.4 - 10.4 FL) 7.4 Gran % (42.2 - 75.2 %) 39.8 L Lymphocytes % (20.5 - 51.1 %) 45.7 Monocytes % (1.7 - 9.3 %) 11.0 H Eosinophils % (0 - 5 %) 3.5 Basophils % (0.0 - 2.0 %) 0 L Absolute Granulocytes (1.4 - 6.5 /CUMM) 1.9 Absolute Lymphocytes (1.2 - 3.4 /CUMM) 2.2 Absolute Monocytes (0.10 - 0.60 /CUMM) 0.5 Absolute Eosinophils (0.0 - 0.7 /CUMM) 0.2 Absolute Basophils (0.0 - 0.2 /CUMM) 0 Platelet Estimate (ADEQUATE) ADEQUATE Polychromasia 1+ Anisocytosis 1+ PUBS MCHC (33.0 - 37.0 G/DL) 33.0 Vital Signs Date Time Temp Pulse Resp B/P B/P Pulse O2 O2 Flow FiO2 Mean Ox Delivery Rate 10/05 0934 79 113/65 10/05 0801 98.4 79 113/65 10/04 2140 99 122/73 10/04 2004 99.8 99 122/73 10/04 1542 87 115/55 10/04 1221 77 109/59 MSE Appears as stated age. Defensive, limited cooperative behavior, good, appropriate eye contact. Nl speech rate and prosody. No psychomotor retardation or agitation. Mood edgy!!! Affect extremely irritable, constricted, appropriate, non-liable. Linear and goal directed thought process. Denies SI or HI. Does not appear to be responding to internal stimuli. Denies AVHs, paranoia, or delusions. I/J: limited A/P: Pt with hx of Bipolar disorder and PSD now with marked irritability around BDZ taper. - Continue current medication regimen - Encouraged pt to try the gabapentin PRNs
[2016-10-05 12:22] VITALS: BP 102/61
--- NOTE | 2016-10-05 13:20 | NUR ---
PT IS COMPLIANT AND COOPERATIVE WITH UNIT RULES. PT IS OUT IN THE COMMUNITY INTERACTING WELL WITH STAFF AND PEERS. PT IS ACTIVE IN GROUPS. PT MOOD IS STABLE WITH A FULL RANGE AFFECT. PT CAN GET WORKED UP ON THE PHONE AND NEEDS TO BE REMINDED ABOUT USING APPROPRIATE LANGUAGE. PT REPORTED SI THOUGHTS THIS MORNING AT 0800 VITALS. PT DID NOT HAVE A PLAN. REPORTED TO AND CHARGE NURSE.
[2016-10-05 15:25] VITALS: BP 114/65
[2016-10-05 20:10] VITALS: BP 125/66
--- NOTE | 2016-10-05 23:00 | NUR ---
PT ALERT AND ORIENTED X3. PT REPORTS TO STAFF THAT VISIT WITH HER DAUGHTER AND SON WAS UPSETTING. STAFF SUGGESTED THAT SHE ACCEPT THINGS THAT SHE CANNOT CHANGE. OTHERWISE PT CALM AND APPROPRIATE.
--- NOTE | 2016-10-06 06:17 | NUR ---
PATIENT WAS BRIEFLY AWAKE X1 AND WENT TO BATHROOM, OTHERWISE APPEARED TO SLEEP MOST OF THE NIGHT.
[2016-10-06 07:55] VITALS: BP 111/66
[2016-10-06 08:45] LABS: HEMATOCRIT 33.9 % (37-47); MEAN CORPUSCULAR HGB 27.8 PG (27.0-31.0); MEAN CORPUSCULAR HGB CONC 33.2 G/DL (33.0-37.0); MEAN CORPUSCULAR VOLUME 83.8 FL (81.0-99.0); MEAN PLATELET VOLUME 7.7 FL (7.4-10.4); PLATELET COUNT 255 /CUMM (130-400); RBC DISTRIBUTION WIDTH 13.7 % (11.5-14.5); RED BLOOD CELL CT 4.05 /CUMM (4.20-5.40); WHITE BLOOD CELL COUNT 4.2 /CUMM (4.8-10.8)
--- NOTE | 2016-10-06 12:28 | NUR ---
DR VELAZQUEZ CALLED [facility] TO SAY IT IS TOO EARLY FOR PTS CAST TO BE REMOVED.HE RECOMMENDS PT FOLLOW UP WITH HER DOCTOR DR ERWIN UPON DISCHARGE
[2016-10-06 12:52] VITALS: BP 115/52
--- NOTE | 2016-10-06 14:16 | SOCIAL WORKER PROG NOTE PSYCH ---
Social Work Progress Note Progress Note Please include, when applicable: * Interviews with the patient * Interviews with family members * Assessments linked to the treatment plan * Additions to or changes in the treatment plan along with reasons for same * Contacts with family and significant others in treatment, including family meeting(s) * Family attitudes * Community resource contacts and liaison with other clinicians/agencies
[2016-10-06 16:12] VITALS: BP 117/68
--- NOTE | 2016-10-06 16:32 | SOCIAL WORKER PROG NOTE PSYCH ---
Social Work Progress Note Progress Note Pt states she doesn't "want to live " like this and states she isnt needed by anyone anymore, and she doesn't want family involvement for support at this time. She is feeling sad, and useless is not motivated by more outpatient/ psychiatric options during this meeting. She states she wants to got to a sober home I gave her the info for recovery homes and told her to try 211, and for outpatient she could do a walk in appointment at [facility] in [place], pt not agreeable to IOP, and unsure about outpatient at this time.
[2016-10-06 19:53] VITALS: BP 121/67
--- NOTE | 2016-10-06 20:33 | CP SOUTH PROGRESS NOTE PSYCH ---
Psych (Inpt) Progress Note Progress Note Include the following elements, when applicable: Involvement in the active treatment of the patient with behavioral observations of the patient and the patient's response to the treatment. Review of the ongoing treatment process in the context of the treatment plan. Indication of how multi-disciplinary staff members are carrying out the treatment plan. Plans for future interventions and recommendations for revision of the treatment plan. Liaison with other physicians/providers. Progress Note: PSYCHIATRIST NOTE, 10/06/2016: I discussed this patient's slow progress to date, current mental status, treatment and discharge planning with staff team today in the daily morning ITTM and also met with her again myself in individual session. Though she complained of anxiety and appeared rather irritable over this past weekend, patient appeared to be doing better today despite apparently have negative interactions with both her adult children. Her affect was a little brighter and mood clearly less dysphoric than late last week. As she is becoming better able to concentrate on aftercare, patient favors going directly to a sober house rather than first entering a residential rehab program; however, she may have difficulty with either given her continuing dependence on Xanax; though I have been able to taper dose down from 6mg to 4mg/day patient is very much opposed to any further reduction in dose at this time. I would still like to try to have a family meeting with patient and her daughter and/or son prior to discharge. Patient's thyroid is starting to become gradually more regulated on the Tapazole ; she had Dr. Dalton had told her eventually she will need either radiation treatment of the thyroid or surgery; currently, she favors the latter.
--- NOTE | 2016-10-06 22:45 | NUR ---
PT IS CALM, COOPERATIVE WITH STAFF AND PEERS, AND COMPLIANT WITH UNIT RULES. PT IS BOTH IN AND OUT OF [place], APPEARING LETHARGIC AT TIMES, SLEEPIGN IN PT ROOM FOR PERIODS. PT MOOD IS STABLE, AFFECT APPEARS EUTHYMIC, CAN APPEAR SLIGHTLY ANXIOUS AT TIMES, COMMUNICATION IS ORGANZIED AND APPEARS NORMAL IN ALL RESPECTS, AND APPETITE IS NORMAL. PT DENIES SI AT THIS TIME.
--- NOTE | 2016-10-07 05:49 | NUR ---
PATIENT WAS GIVEN PRN MELATONIN 5MG AT 0129, OTHERWISE APPEARED TO SLEEP MOST OF THE NIGHT.
[2016-10-07 07:42] VITALS: BP 107/64
--- NOTE | 2016-10-07 09:03 | PN- Endocrinology ---
Assessment/Plan Assessment: Patient has hx of Graves' disease. Over the past couple of weeks, she has lost 12 pounds, has been feeling anxious, depressed and has had difficulty in sleeping. She was admitted for major depression and suicidal ideation. Blood work demonstrated TSH less than 0.015 and free T4 6.02. Her WBC was 3.9 on admission. Her TT3 was 4.67; anti TPO was > 1300 and anti TG > 500. On 10/02/2016 , She was started on Methimazole 10 mg twice a day and Propranolol 20 mg twice a day (hold it if her SBP is < 100 or HR is < 80). She feels slightly better. Repeat blood work done on 10/03-- free T4 4.07 and WBC 4.9. Repeat blood work done on 10/06--free T4 3.25, WBC 4.2, AST 13 and ALT 25. Plan: continue the current treatment. repeat CBC, free T4 and TT3 this Thursday. will follow. Subjective Subjective: She feels better. Objective Last 24 Hrs of Vital Signs/I&O Vital Signs Date Time Temp Pulse Resp B/P B/P Pulse O2 O2 Flow FiO2 Mean Ox Delivery Rate 10/07 0839 98.1 80 18 107/64 10/07 0742 98.1 80 107/64 10/06 2122 98.0 98 18 121/67 10/06 1953 98.0 98 121/67 10/06 1612 81 117/68 10/06 1252 86 115/52
--- NOTE | 2016-10-07 11:09 | SOCIAL WORKER PROG NOTE PSYCH ---
Social Work Progress Note Progress Note Pt feeling depressed, hopeless and lost. She has limited insight to what would make her feel better/stable. She reports she has no home to return too, her landlord is buying a new home that is "stuck in probate", she is under the impression that when this court probate is done, that she can return to a new apartment with the same landlord, as that is what he told her. Pt continues to state "I don't know what I would do if I left here", in regards to safety. Pt states she called [address] and was on hold for too long before making connections for sober houses. Pt is homeless at this point and states if she were to be placed in a sober house she would follow thier rules and attend treatment etc.
--- NOTE | 2016-10-07 11:23 | SOCIAL WORKER PROG NOTE PSYCH ---
Social Work Progress Note Progress Note Dr. Damian Begum [phone] follow up appointment for pts hand on October 23, 2016 11:00 258 [facility]
[2016-10-07 12:40] VITALS: BP 109/70
--- NOTE | 2016-10-07 14:13 | NUR ---
PT VISIBLE IN THE [facility] TODAY. HER GOAL WAS TO TALK TO TRAINING PERSONNEL SUPERVISOR. IN THE [place] PT HAS BEEN GOING TO SOME GROUPS, AND INTERACTING WITH PEERS. SHE HAS BEEN COMPLIANT WITH STAFF DIRECTIONS, AND DENIES THOUGHTS OF HURTING HERSELF.
--- NOTE | 2016-10-07 16:13 | CP SOUTH PROGRESS NOTE PSYCH ---
See Addendum Psych (Inpt) Progress Note Progress Note Include the following elements, when applicable: Involvement in the active treatment of the patient with behavioral observations of the patient and the patient's response to the treatment. Review of the ongoing treatment process in the context of the treatment plan. Indication of how multi-disciplinary staff members are carrying out the treatment plan. Plans for future interventions and recommendations for revision of the treatment plan. Liaison with other physicians/providers. Progress Note: PSYCHIATRIST NOTE, 10/07/2016: I discussed this patient's slow progress to date, current mental status, treatment and discharge planning with staff team today in the daily morning ITTM and met with her agian myself in individual session. Patient had another poor night's sleep last night despite the increase in trazodone to 100mg HS and taking the PRN melatonin, 5mg; we agreed to increase trazodone once more, to 150mg, and double melatonin to 10mg (patient saying she has had some success with latter in the past). She also noted increase in overactive and sometimes racing thoughts "that go all over the place and make me worry." She has utilized the PRN Abilify only once; following further discussion and again describing R/B/SE of Abilify patient agreed to start on 2mg HS tonight to to utilize the 2mg PRN's, day or night, for racing thoughts/ruminations. Patient is still expressing interest in entering a sober house and has looked into one in [place]; there is also another place in [place] called [facility] which might be appropriate. Patient is less concerned about "being further away from family" since some upsetting interaction with both of her children over this past weekend; she is nonetheless quite proud of her son who left home at 22 years of age, found a good job, a good partner and has his own children; I think patient would very much like to be able to stay with her son and his family but "they are starting out on their own lives and don't need me around."
[2016-10-07 16:35] VITALS: BP 108/66
[2016-10-07 20:24] VITALS: BP 134/76
--- NOTE | 2016-10-07 21:21 | NUR ---
PT IS CALM, COOPERATIVE WITH STAFF AND PEERS, AND COMPLIANT WITH UNIT RULES. PT IS PFTEN IN MILIEU, INTERACTING WELL WITH OTHERS. MOOD IS STABLE, AFFECT IS EUTHYMIC, COMMUNICATION IS ORGANIZED AND APPEARS NORMAL IN ALL RESPECTS, AND APPETITE IS NORMAL. PT DENIES SI AT THIS TIME.
[2016-10-08 08:24] VITALS: BP 112/62
[2016-10-08 12:17] VITALS: BP 122/68
--- NOTE | 2016-10-08 12:46 | NUR ---
PT IS PRESENT WITHIN THE COMMUNITY AND SOCIAL WITH PEERS AND STAFF, MOOD IS IRRITABLE BUT REDIRECTABLE AND AFFECT IS CONSTRICTED, IN PLANNING MEETING REPORTED + SLEEP/MOOD AND GOAL WAS TO "SEE RAILWAY HEAD TENDER AND WORK ON DISCHARGE", APPROPRIATE OVERALL, CALM, COOPERATIVE AND COMPLIANT.
--- NOTE | 2016-10-08 13:57 | CP SOUTH PROGRESS NOTE PSYCH ---
Psych (Inpt) Progress Note Progress Note Include the following elements, when applicable: Involvement in the active treatment of the patient with behavioral observations of the patient and the patient's response to the treatment. Review of the ongoing treatment process in the context of the treatment plan. Indication of how multi-disciplinary staff members are carrying out the treatment plan. Plans for future interventions and recommendations for revision of the treatment plan. Liaison with other physicians/providers. Progress Note: PSYCHIATRIST NOTE, 10/08/2016: I discussed this patient's slow progress to date, current mental status, treatment and discharge planning with staff team today in the daily morning ITTM and also met with her again myself in individual session. Patient's affect has brightened and mood is improving though she is still worried/ruminating about the future. However, she is filling in the pieces; her old landlord has just told her that she will be able to move sometime in 11/2016 into an apartment in a new building in [place], [place]., he has bought and is renovating/improving. She has also been re-establishing a relationship with her first and is thinking she may eventually "move south" with him. However, in the short-term her prospects are still unsettled; today, she has learned of a residence on [facility] which would cost her $1,950.00 for the first month, much more than her entire monthly income; surely, she will be able to find a suitable venue more within her means; she has at least two other alternatives, [facility]" and [facility]" which she needs to learn more about on the Internet and is hoping that Ms. Juan will help her do so tomorrow morning, 10/09/2016. Patient was very pleased that she "slept well" last night and smiled broadly when she told me this; I think that the combination of increase in dose of trazodone to 150mg HS and addition of low dose Abilify, 2mg HS have contributed to this welcome improvement in sleep time and quality. She appears to be adjusting to the lower dose of Xanax (1mg 4x/day), but I don't think I will be able to make any further taper in dose as she nears the end of her hospitalization. Patient is tolerating the increased dose of Effexor XR well, and I think it is helping to improve her overall mood, initiative and focus on planning. She is continuing to enjoy her reading ("I'm reading two books at the same time"); she thought the idea of joining a local "book club" would be interesting, providing an opportunity for low hendrix, nonstressful socialization. Ms. Juan has obtained a f/u appointment for patient with surgeon, Dr. Freddy Begum at his [facility] office in [place], [place] for 10/23/2016 at 11am to revise the cast on her L wrist/forearm.
--- NOTE | 2016-10-08 15:11 | SOCIAL WORKER PROG NOTE PSYCH ---
Social Work Progress Note Progress Note Pt made a lot of phone calls through , she registered for the long term system. She was accepted to [facility], but will need to pay $1950 a month this is a sober house at [facility], she will speak with her daughter in law and see if this is a possibility. We left voicemail messages for [facility] as well.
--- NOTE | 2016-10-08 15:43 | SOCIAL WORKER PROG NOTE PSYCH ---
Social Work Progress Note Progress Note Pt has a 211 half-way/intake appointment with Alexis Sharif in [facility] on October 14 at 1pm to go over housing options. If she can [facility] her the payment can be made thru paypal of 1950.00 and she can go there pending transportation on thursday.
[2016-10-08 16:11] VITALS: BP 126/77
[2016-10-08 20:04] VITALS: BP 134/80
--- NOTE | 2016-10-08 21:55 | NUR ---
PT IS VISIBLE ON UNIT, SOCIALIZING WITH PEERS AND WATCHING TV IN LOUNGE. COOPERATIVE AND COMPLIANT WITH STAFF. ATTENDED WRAP UP MEETING. NO COMPLAINTS OR SI REPORTED. PT HAS A STABLE MOOD AND FULL RANGE AFFECT.
[2016-10-09 07:58] VITALS: BP 103/58
[2016-10-09 12:12] VITALS: BP 96/54
--- NOTE | 2016-10-09 14:04 | NUR ---
PT IS PRESENT WTIHIN THE COMMUNITY, INTERACTING WITH PEERS/STAFF MEMBERS. VERY APPROPRIATE, CALM, COOPERATIVE, COMPLIANT. ATTENDING GROUPS AND IS ACTIVE. PT SHOWERED INDEPENDENTLY TODAY AND WRAPPER HER CAST/TOOK IT OFF AFTERWARDS. PT HAS BEEN JUST EATING AND SLEEPING. VS ARE STABLE AND DENIES ANY SI/HI TO THIS MHW.
--- NOTE | 2016-10-09 14:15 | SOCIAL WORKER PROG NOTE PSYCH ---
See Addendum Social Work Progress Note Progress Note Sent a referral and pt did screening for [facility], which would be $ 850 a month. ALso put a phone call into [facility] in [place]. Will complete referral to [facility].
[2016-10-09 16:15] VITALS: BP 108/57
[2016-10-09 19:44] VITALS: BP 132/70
--- NOTE | 2016-10-09 19:57 | CP SOUTH PROGRESS NOTE PSYCH ---
Psych (Inpt) Progress Note Progress Note Include the following elements, when applicable: Involvement in the active treatment of the patient with behavioral observations of the patient and the patient's response to the treatment. Review of the ongoing treatment process in the context of the treatment plan. Indication of how multi-disciplinary staff members are carrying out the treatment plan. Plans for future interventions and recommendations for revision of the treatment plan. Liaison with other physicians/providers. Progress Note: PSYCHIATRIST NOTE, 10/09/2016: I discussed this patient's slow progress to date, current mental status, treatment and discharge planning with staff team today in the daily morning ITTM and also met with her again myself in individual session. Patient is no longer complaining of anxiety which had increased initially following the tapering down of Xanax from 6mg to 4mg/day; I will not try further taper during this admission but would recommend that slow reduction in dose continue on an outpatient basis, particularly if clinical improvement in depression slows/stalls. Ms. Juan is continuing to work with patient on various residential options and she should have a place prior to coming weekend; at this point patient's major stressor and cause of anxiety is not knowing where she will be living after discharge from hospital. Patient has been sleeping and eating well and is no longer suicidal.
--- NOTE | 2016-10-09 21:22 | NUR ---
PT IS VISIBLE ON UNIT, SOCIAL WITH PEERS AND MAKING FREQUENT PHONE CALLS. REFUSED AA THIS EVENING. PT HAS AN IRRITABLE EDGE BUT IS OVERALL COOPERATIVE AND COMPLIANT WITH STAFF. NO COMPLAINTS OR SI REPORTED. PT HAS A STABLE MOOD AND FULL RANGE AFFECT.
--- NOTE | 2016-10-09 22:10 | NUR ---
DURING WRAP UP MEETING THIS EVENING, PT MADE SI STATEMENTS. CHARGE NURSE PRESENT WHEN THESE STATEMENTS WERE MADE. PT CONTRACTS FOR SAFETY AND HAS NO INTENT TO HARM SELF WHILE ON UNIT.
[2016-10-10 07:23] VITALS: BP 104/55
[2016-10-10 08:45] LABS: ABSOLUTE BASOPHIL COUNT 0 /CUMM (0.0-0.2); ABSOLUTE EOSINOPHIL COUNT 0.2 /CUMM (0.0-0.7); ABSOLUTE GRANULOCYTE CT 1.2 /CUMM (1.4-6.5); ABSOLUTE LYMPH COUNT 2.4 /CUMM (1.2-3.4); ABSOLUTE MONOCYTE COUNT 0.4 /CUMM (0.10-0.60); BASOPHIL % 0 % (0.0-2.0); GRANULOCYTE % 29.1 % (42.2-75.2); HEMATOCRIT 32.2 % (37-47); MEAN CORPUSCULAR HGB 27.7 PG (27.0-31.0); MEAN CORPUSCULAR HGB CONC 32.3 G/DL (33.0-37.0); MEAN CORPUSCULAR VOLUME 85.7 FL (81.0-99.0); MEAN PLATELET VOLUME 7.2 FL (7.4-10.4); PLATELET COUNT 211 /CUMM (130-400); RBC DISTRIBUTION WIDTH 14.5 % (11.5-14.5); RED BLOOD CELL CT 3.76 /CUMM (4.20-5.40); WHITE BLOOD CELL COUNT 4.1 /CUMM (4.8-10.8)
--- NOTE | 2016-10-10 11:46 | PN- Endocrinology ---
Assessment/Plan Assessment: Patient has hx of Graves' disease. Over the past couple of weeks, she has lost 12 pounds, has been feeling anxious, depressed and has had difficulty in sleeping. She was admitted for major depression and suicidal ideation. Blood work demonstrated TSH less than 0.015 and free T4 6.02. Her WBC was 3.9 on admission. Her TT3 was 4.67; anti TPO was > 1300 and anti TG > 500. On 10/02/2016 , She was started on Methimazole 10 mg twice a day and Propranolol 20 mg twice a day (hold it if her SBP is < 100 or HR is < 80). Repeat blood work done on 10/03-- free T4 4.07 and WBC 4.9. Repeat blood work done on 10/06--free T4 3.25, WBC 4.2, AST 13 and ALT 25. Repeat blood work done on 10/10/2016--free T4 2.41, TT3 2.61, TSH < 0.015, WBC 4.1 , TSI 447. She has been feeling better. Plan: 1. starting tomorrow, patient will be on Methimazole 15 mg daily. 2. continue Propranolol 20 mg twice a day as needed. 3. monitorn WBC and TFT in one week and then once a month till her thyroid function is more stable. 4. f/u in office after discharge. Patient would like to consider thyroid surgical intervention when her thyroid function is better controlled. Subjective Subjective: She has been feeling better. Objective Last 24 Hrs of Vital Signs/I&O Vital Signs Date Time Temp Pulse Resp B/P B/P Pulse O2 O2 Flow FiO2 Mean Ox Delivery Rate 10/11 951 93 104/10/10 0723 97.1 10410/09 2235 93 132/70 10/09 1944 99.0 93 132/70 10/09 1615 80 108/57 10/09 1212 65 96/54 Results Pertinent Lab/Andry Results: Laboratory Tests 10/10 604 Chemistry TSH (0.270 - 4.200 uIU/mL) < 0.015 L Free T4 (0.64 - 1.79 ng/dL) 2.41 H Total T3 (0.97 - 1.69 ng/mL) 2.61 H Hematology CBC w Diff NO MAN DIFF REQ WBC (4.8 - 10.8 /CUMM) 4.1 L RBC (4.20 - 5.40 /CUMM) 3.76 L Hgb (12.0 - 16.0 G/DL) 10.4 L Hct (37 - 47 %) 32.2 L MCV (81.0 - 99.0 FL) 85.7 MCH (27.0 - 31.0 PG) 27.7 RDW (11.5 - 14.5 %) 14.5 Plt Count (130 - 400 /CUMM) 211 MPV (7.4 - 10.4 FL) 7.2 L Gran % (42.2 - 75.2 %) 29.1 L Lymphocytes % (20.5 - 51.1 %) 57.9 H Monocytes % (1.7 - 9.3 %) 9.0 Eosinophils % (0 - 5 %) 4.0 Basophils % (0.0 - 2.0 %) 0 L Absolute Granulocytes (1.4 - 6.5 /CUMM) 1.2 L Absolute Lymphocytes (1.2 - 3.4 /CUMM) 2.4 Absolute Monocytes (0.10 - 0.60 /CUMM) 0.4 Absolute Eosinophils (0.0 - 0.7 /CUMM) 0.2 Absolute Basophils (0.0 - 0.2 /CUMM) 0 PUBS MCHC (33.0 - 37.0 G/DL) 32.3 L
[2016-10-10 12:23] VITALS: BP 100/58
--- NOTE | 2016-10-10 12:43 | SOCIAL WORKER PROG NOTE PSYCH ---
Social Work Progress Note Progress Note Beena completed phone screening with [facility] (with Celina). INformed Celina about lower dose of Xanex. She stated she will discuss with Shima Schultz Received voicemail from Tony of [facility] [phone] - for a phone screening. Phoned Tony back and left him a voicemail to call back again.
--- NOTE | 2016-10-10 13:54 | SOCIAL WORKER PROG NOTE PSYCH ---
Social Work Progress Note Progress Note Pt is being discharged today to [facility] Juan is a staff and picking her up here at 4pm [phone]. She will be going to [address] [facility] in [place] Her son Rigo will be here to drop off her debit card and some clothes at 3:30pm Pt is agreeable to this plan, and denies si/ah/hi. She sates she understands she needs to taper from the xanax further and will comply with [facility] expectations.
--- NOTE | 2016-10-10 14:14 | CP SOUTH PROGRESS NOTE PSYCH ---
Psych (Inpt) Progress Note Progress Note Include the following elements, when applicable: Involvement in the active treatment of the patient with behavioral observations of the patient and the patient's response to the treatment. Review of the ongoing treatment process in the context of the treatment plan. Indication of how multi-disciplinary staff members are carrying out the treatment plan. Plans for future interventions and recommendations for revision of the treatment plan. Liaison with other physicians/providers. Progress Note: PSYCHIATRIST NOTE (DISCHARGE), 10/10/2016: I discussed this patient's slow progress to date, current mental status, treatment and discharge plans with staff team today in the daily morning ABIGAIL and Shima Juan LCSW, and I met with patient together in individual session prior to discharging her to [facility] in [place], [place].; a staff member from that facility will transport her directly there later in the afternoon. Patient will have a walk-in intake at [facility]. She also has a f/u appointment with her orthopedic surgeon, Dr. Damian Begum on 10/23/2016 at 11:00am; he will revise the cast on her left forearm/ wrist at that time. Patient continues to report lessening of anxiety despite the taper of Xanax dose by 33% during this admission after many years on this drug; I was happily surprised today when patient said spontaneously that she would be ready to further taper dose from 4mg to 3mg/day in the near future, as soon as settled in her new residence and with outpatient/acute care nurse. She continues to sleep well. Her affect was brighter today; patient is currently euthymic and future-oriented, showing no evidence of suicidal or homicidal ideation, plans, intent or impulses and knows well her safety plan should she ever in the future coming to believe herself at acute risk of self-injury or of harming others. I have called into the [facility] on day of discharge, 10/10/2016: Effexor XR, 75mg: iii(3) tabs daily in AM (225mg/day); #45 with no refill ( anti-depressant) Abilify, 2mg: i tab nightly at HS (2mg/night); #15 with no refill (reduce/ control racing thoughts) trazodone, 150mg: i tab nightly at HS (150mg/night); #15 with no refill ( sleep induction) Inderal, 20mg: i tab 2x/day (40mg daily); #30 with no refill (tachycardia from hyperthyroid state) Neurontin, 300mg: i tab 4x/day (1,200mg daily); #60 with no refill ( discomfort/anxiety/shakiness) Xanax, 1mg: i tab 4x/day (4mg daily); #60 with no refill (reduce generalized and panic anxiety) patient was also discharged on, per Dr. Dalton (who provided prescription for): Tapazole, 15mg/day (reduced on date of discharge from 10mg 2x/day) (patient did well without any smoking cessation medications during current admission; they were no prescribed due to concern that the nicotine would contribute to risks of tachycardia related to continuing hyperthyroid state; patient would have refused patch/gum in any event; she told me that she plans to discontinue smoking going forward and refused smoking cessation program/group)
[2016-10-10] MEDS ORDERED: PROPRANOLOL HCL20 M1 PO (14:42)
[2016-10-10] MEDS ORDERED: GABAPENTIN300 M2 PO (14:43)
[2016-10-10] MEDS ORDERED: TRAZODONE HCL150 M1 PO (14:43)
[2016-10-10] MEDS ORDERED: ABILIFY2 MG PO (14:44)
[2016-10-10] MEDS ORDERED: EFFEXOR XR75 M1 PO (14:44)
[2016-10-10] MEDS ORDERED: XANAX XR1 M1 PO (14:45)
[2016-10-10] MEDS ORDERED: TAPAZOLE5 MG PO (14:45)
--- NOTE | 2016-10-10 14:53 | NUR ---
will be discharged today to [facility] with follow up at [facility]. Mood is stable, full range of affect. Denied thoughts of self harm when asked. given education on suicide prevention and methamphetamine abuse.
--- NOTE | 2016-10-10 15:18 | NUR ---
PT PRESENT IN COMMUNITY, SOCIAL WITH PEERS AND STAFF. PT COMPLIANT AND COOPERATIVE. PT MOOD STABLE - FULL RANGE AFFECT. NO COMPLAINTS OFFERED.
--- NOTE | 2016-10-10 17:03 | DISCHARGE SUMMARY REPORT-PSYCH ---
Visit Information Visit Dates/Diagnosis' Admission Date: 10/01/16 Discharge Date: 10/10/16 Reason for Admission: "I just can't get out of this funk and I want to ." Psy Discharge Primary Diag: Major Depressive Disorder Recurrent; severe but nonpsychotic at present Unspecified Panic Disordr (with symptoms of panic agoraphobia, social phobia and VICENTA) Psy Discharge Secondary Diag: Hyperthyroidism Stimulant Use Disorder (including cocaine and amphetamine) Benzodiazepine Dependence (prescribed Xanax which is being tapered; down from 6mg to 4mg/day durin current admission (with recommendation/patient agreement to reduce to 3mg/day in near future) Hospital Course Significant Lab Findings: glucose = 140; HDL = 64, LDL = 56; T4 = 23.5, free T4 = 6.02, total T3 = 4.67, TSH = less than 0.015, anti-TPO antibodies = greater than 1,300, anti- thyroglobulin antibodies = greater than 500; RICARDO = less than 10.0; urine for drugs of abuse--positive for amphetamines (greater than 1,450ng/ml), benzodiazepines (greater than 800); cocaine (greater than 1,000) and cannabis ( 73.20ng/ml); (for complete details of all normal range laboratory data from this admission, see the electronic medical record) Course Complications: patient's treatment was complicated by grossly abnormal thyroid functions related to Graves' Disease which required evaluation and treatment during this admission (see also under "Consultations") Consultations: patient was seen for an admission medical H&P and followed medically throughout this admission by Edwin Quan M.D.; patient was also see in endocrine consultation by Natalia Dalton M.D., who began treatment with methimazole and propranolol, 20mg 2x/day; she recommended f/u with her in her outpatient office with monitoring WBC count and TFT in one week and then once a month until thyroid function is more stable and then to consider possible thyroid surgical intervention (in which patient showed interest during this admission) Allergies: Coded Allergies: No Known Allergies (09/30/16) Hospital Course/TX Response: (see also, all initial/admission assessments, daily M.D./TREADLE CUT OFF SAW OPERATOR and PROFESSOR OF PUBLIC ADMINISTRATION progress notes which are in the electronic medical record) Initially, patient appeared to be experiencing exacerbation of recurrent major depressive disorder complicated and made even more severe and difficult to treat/treatment-resistant by her use of several addictive drugs TIP PUNCHER, both prescribed and likely abused benzodiazepines, as well as amphetamines, with addition of cocaine and alcohol. She had become increasingly isolated and distanced from her adult children. Our first task was to eliminate and detox patient from addictive substances; over the course of admission benzodiazepines became the drug from which patient had the most difficulty herself, even in hospital. Sadly, it was not possible to organize a family meeting on [facility] during this admission. Patient's Effexor XR was titrated up to 225mg/day and low dose Abilify added to augment the anti-depressant and help to reduce anxiety/racing thoughts. Unfortunately, it was only possible to reduce "regular " dose of Xanax from a total of 6mg by one-third, down to 1mg 4x/day though patient allowed that she might soon be able to tolerate reduction by another 1mg once stabilized in residential program and with outpatient aftercare; hopefully, the increase in Effexor XR dose with help in reducing ambient anxiety, as well as possible panic symptoms; though patient's anxiety level gradually declined despite reduction in Xanax dose, we were still not able to lower the regular dose below 4mg/day during this admission; however, patient claimed that she had been on the higher dose "for years" TIP PUNCHER. Eventually, patient agreed to pursue residential substance abuse rehab and an appropriate venue in [place] was found. Discharge HBIPS - Tobacco Use Treatment Offered Post DC Medications Offered: Refused Tob Medication Tx (dangerous with hyperthyroidism) Post DC Tobacco Treatment Plan: Other Tobacco Tx Pgm (res. rehab 10/10/16--[place]) Program Appt Date: 10/10/16 - EtOH/Drug Use D/O Treatment Offered Post DC Medications Offered: Ref Med EtOH/Drug Use D/O Post DC EtOH/SubAbuse TX Plan: Other SubAbuse/Dual [facility] (to [facility] 10[facility]) Program Appt Date: 10/10/16 Metabolic Screening - Screen if on a Neuroleptic Medication - Metabolic screening should include: - Blood Pressure, BMI, Glucose or Hgb A1c, & a - Lipid profile from within the past 365 days. Metabolic Screening () Not Applicable, patient not on a neuroleptic. OR ([x]) Patient on a neuroleptic(s) . Enter below results for Glucose or Hemoglobin A1C, and lipid panel if obtained during the last 365 days. BMI: 17.700 Blood Pressure: 100/58 Laboratory Results (If applicable): [x] glucose = 140 (on 09/30/2016) cholesterol = 139 (all drawn on 09/30/2016) triglycerides = 99 HDL = 64 LDL = 56 Discharge Instructions General Discharge Information Discharge Medications: Discharge Medications (dose, route, frequency, indications): I called into the [facility] pharmacy on day of discharge, 10/10/2016: Effexor XR, 75mg: iii(3) tabs daily in AM (225mg/day); #45 with no refill ( anti-depressant) Abilify, 2mg: i tab nightly at HS (2mg/night); #15 with no refill (control racing thoughts at bedtime) trazodone, 150mg: i tab nightly at HS (150mg/night); #15 with no refill (sleep induction/anti-depressant) Neurontin, 300mg: i tab 4x/day (1,200mg daily); #60 with no refill ( discomfort/jitteriness/anxiety) Xanax, 1mg: i tab 4x/day (4mg daily); #60 with no refill (reduce generalized and panic anxiety) Inderal, 20mg: i tab 2x/day (40mg daily); #30 with no refill (control tachycardia from hyperthyroid state) patient was also discharged on/given prescriptions for, per Dr. Natalia Dalton (with whom patient will follow up): Tapazole, 15mg/day (reduced on date of discharge from 10mg 2x/day, per order of Dr. Dalton) (patient could not take smoking cessation medications during this admission due to concern regarding her hyperthyroid-induced tachycardia and the nicotine possibly worsening this; however, patient said she would have refused nicotine patch/gum in any case; nonetheless, she asserted that she would discontinue smoking going forward and refused referral to a smoking cessation program/group) Multiple Neuroleptics: ([x]) Not Applicable OR Document below three failed attempts at monotherapy, or a plan to taper to monotherapy, or augmentation of Clozapine. () Patient's Diet: heart healthy Patient's Activity: without restrictions DC Disposition: directly to residential rehab at [facility] in [facility]; a staff member from there was to transport patient directly to that facility Recommendations: I would strongly recommend patient be assisted with further reduction and eventually discontinuation of Xanax; she had commented just pror to discharge that she thought it would be possible for her to lower the regular dose from 1mg 4x/day to 1mg 3x/day in the near future once established in her residential program. Patient should continue to consult with combination machine tender, Natalia Dalton M.D., with regard to treatment of her hyperthyroidism; Dr. Dalton had said that patient has expressed interest in pursuing a surgical treatment for this disorder. Patient also has an appointment scheduled with her orthopedic surgeon , Dr. Liz Begum, on 10/23/2016 at 11am for revision of the cast on her left forearm/wrist. Referred To: Patient will be in residential rehab with [facility] in [facility], and will have walk-in intake at [facility] for additional services/support. She will receive treatment for smoking cessation as well as abstaining from other drugs while at [facility]. Copies To: MER ZHANG,NATALIA; YAIMA ZHANG,LIZ Leslie
== END 2016-10-10 16:25 | DRG 885 ==
LOC: ERH 17:29 → CP SOUTH 10-01 14:05 → ERHI 10-01 14:05 → ENRESERV 10-01 17:00 → CP SOUTH 10-01 17:32
PROVIDERS: Internal Medicine Endocrinology, Diabetes & Metabolism; Physician Assistant; ADMIT Psychiatry & Neurology Addiction Medicine
DX: F33.2 Major depressive disorder, recurrent severe without psychotic features (principal); F13.20 Sedative, hypnotic or anxiolytic dependence, uncomplicated; F40.01 Agoraphobia with panic disorder; F40.10 Social phobia, unspecified; F41.1 Generalized anxiety disorder; E05.90 Thyrotoxicosis, unspecified without thyrotoxic crisis or storm; F14.90 Cocaine use, unspecified, uncomplicated; F15.90 Other stimulant use, unspecified, uncomplicated
CPT/HCPCS: 36415; 80307; 86376; 86800; G0480; J3490

== ENCOUNTER 2016-12-06 12:28 | Inpatient (IN) | payer OTHER, MEDICARE ==
[~2016-12-06] VITALS: Ht 165.1 cm; Wt 56.2 kg
[~2016-12-06 12:28] MED LIST: ABILIFY2 MG PO; ADDERALL 30 MG30 MG PO; ALPRAZOLAM2 M2 PO; EFFEXOR XR150 M1 PO; EFFEXOR XR75 M1 PO; GABAPENTIN300 M2 PO; PROPRANOLOL HCL20 M1 PO; TAPAZOLE5 MG PO; TRAZODONE HCL150 M1 PO; XANAX XR1 M1 PO
--- NOTE | 2016-12-06 12:35 | NUR ---
PT TO ED FOR C/C OF +SI "I WAS GONNA BUY THREE BOTTLES OF BENADRYL AND TAKE THEM." PT VERY EMOTIONAL IN TRIAGE, REPORTS THAT SOMEONE STOLE HER MEDS AND "MY LEFT ME FOR A NEW GIRLFRIEND" REPORTS +ETOH ABOUT 1 QUART VODKA DAILY FOR THE LAST WEEK, DID NOT DRINK TODAY THOUGH. DENIES HI. DENIES DRUG USE.
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
--- NOTE | 2016-12-06 12:49 | NUR ---
DR JOE AT BEDSIDE FOR EVAL
--- NOTE | 2016-12-06 12:55 | NUR ---
URINE TRIO SENT TO LAB
--- NOTE | 2016-12-06 13:04 | NUR ---
LABS DRAWN AND SENT (SST,LAV)
--- NOTE | 2016-12-06 13:10 | NUR ---
PT MEDICATED WITH MOTRIN 600MG PO FOR LEFT WRIST PAIN AND ZOFRAN 4MG ODT FOR NAUSEA. PT CALM AND COOPERATIVE SITTING ON BED IN ROOM 14 WATCHING TV. SITTER AT DOOR.
[2016-12-06 13:18] LABS: HEMATOCRIT 36.8 % (37-47); MEAN CORPUSCULAR HGB CONC 33.2 G/DL (33.0-37.0); MEAN CORPUSCULAR VOLUME 84.5 FL (81.0-99.0); MEAN PLATELET VOLUME 6.9 FL (7.4-10.4); PLATELET COUNT 285 /CUMM (130-400); RBC DISTRIBUTION WIDTH 14.1 % (11.5-14.5); RED BLOOD CELL CT 4.35 /CUMM (4.20-5.40); WHITE BLOOD CELL COUNT 2.9 /CUMM (4.8-10.8)
--- NOTE | 2016-12-06 14:14 | NUR ---
CRISIS IN MEETING WITH PATIENT. SITTER AT DOOR.
[2016-12-06 14:26] VITALS: BP 148/75
[2016-12-06] MEDS ORDERED: ALPRAZOLAM2 M2 PO (14:32)
[2016-12-06] MEDS ORDERED: DEXTROAMP-AMPHE30 MG PO (14:32)
[2016-12-06] MEDS ORDERED: PROPYLTHIOURACI50 M1 (14:33)
[2016-12-06] MEDS ORDERED: SYMBICORT 16010.2 GM INH (14:33)
--- NOTE | 2016-12-06 14:35 | NUR ---
MED REC COMPLETED WITH PATIENT
--- NOTE | 2016-12-06 14:36 | NUR ---
PT REPORTS NAUSEA HAS SUBSIDED
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
--- NOTE | 2016-12-06 15:45 | NUR ---
PT AMBULATORY TO TELEPHONE WITH STEADY GAIT. PT REFUSING ABILIFY 2MG AND INDERAL 20MG, BUT AGREES TO RESTART EFFEXOR. PT REQUESTING XANAX FOR ANXIETY. SITTER AT DOOR.
--- NOTE | 2016-12-06 16:03 | NUR ---
PT MEDICATED WITH EFFEXOR 75MG AND XANAX 1MG PO
--- NOTE | 2016-12-06 16:36 | NUR ---
PT REFUSED TAPEZOLE DOSE, STATED "I DON'T TAKE THAT ANYMORE". SITTER AT DOOR.
[2016-12-06 17:24] VITALS: BP 131/81
--- NOTE | 2016-12-06 17:25 | NUR ---
PT ASKING TO SPEAK WITH NURSE. PT REPORTS "NOT FEELING WELL AND WANTING A DRINK". PT REPORTS A HEADACHE, CHILLS/SWEATS, NAUSEA AND TREMORS. PT ASKED "CAN I LEAVE?" THIS RN ADVISED PT THAT SHE IS BEING HELDOVER FOR RE-EVALUATION TOMORROW FOR HER SI. SITTER AT DOOR. PT ANXIOUS BUT UNDER GOOD BEHAVIORAL CONTROL.
--- NOTE | 2016-12-06 18:51 | NUR ---
PT REPORTS NOT FEELING WELL - STATES SHE IS WITHDRAWING FROM ETOH AND XANAX. PT STATED "I SHOULD JUST GO HOME AND KILL MYSELF". PT REPORTS NAUSEA, ANXIETY, HEADACHE AND SLIGHT TREMORS. SITTER AT DOOR.
--- NOTE | 2016-12-06 19:05 | NUR ---
PT REFUSED TYLENOL 650MG AND ZOFRAN 4MG ODT. PT ASKING TO SPEAK WITH MD AND STATES "YOU ARE NOT HELPING ME. I CAME HERE FOR HELP. I SHOULD JUST GO HOME AND KILL MYSELF. I WANT TO LEAVE AMA." CRISIS AND DR JOE MADE AWARE OF PT'S COMMENTS AND MED REFUSAL. SITTER AT DOOR.
--- NOTE | 2016-12-06 19:36 | NUR ---
Pt reports she does not want to talk to her son on the phone if he calls and does not was to see him if he comes to the ED
--- NOTE | 2016-12-06 20:01 | NUR ---
Pt will be admitted to [facility]. department clinician provided [facility] with report. ED nurse can call CPS charge nurse for report.
--- NOTE | 2016-12-06 20:17 | NUR ---
PT SWITCHED FROM ED OBS TO [facility]PS ADMISSION
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
--- NOTE | 2016-12-06 20:38 | NUR ---
CALLED REPORT TO KARMEN ON CPS
--- NOTE | 2016-12-06 20:51 | NUR ---
PT TRANSPORTED TO CPS
--- NOTE | 2016-12-06 21:22 | NUR ---
Patient admited to CPS from ED. Patient is alert and oriented, tearful during assessment. Patient thin, appropriate for age and weight. Patient vague historian to prescription drug use and ETOH abuse. Patient reports helpless hopeless, contracted for safety while on the unit. Patient denies pain. Pantient denies family history of mental health and suicide. Looking forward to assisting Beena with mental health
[2016-12-06 21:24] VITALS: BP 133/69
[2016-12-06 21:25] VITALS: BP 133/69
[2016-12-07] VITALS (10 sets, daily range): BP systolic 97–124; BP diastolic 59–70
--- NOTE | 2016-12-07 06:20 | NUR ---
PATIENT SLEPT 1/2 TO 3/4 OF NIGHT, AWAKE SEVERAL TIMES, ALL CIWA NORMAL, PERSISTENT HEADACHE, TYLENOL 500MG GIVEN AT 0409.
--- NOTE | 2016-12-07 13:20 | NUR ---
Patient is present in the community, A&O X 3, compliant and cooperative with medication and group therapies/ activities. Mood and affect are stable and appropriate, interacts with other peers and staff members. Patient report good night sleep and appetite, vital sign is stable and WNL, is not scoring on her CIWA, denies thougth of self-harm and to someone else.
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
--- NOTE | 2016-12-07 14:01 | Cons- Medical ---
General Information and HPI Consulting Request Date of Consult: 12/07/16 Requested By: HARRY ZHANG PHD,JUDIE GO Reason for Consult: MEDICAL h & p Source of Information: patient, old records Exam Limitations: no limitations History of Present Illness: 56-year-old female past medical history of Graves' disease who hasn't been very compliant with her treatment, history of depression, alcohol abuse and suicidality is admitted here to [facility] after suicidal ideation, and relapsing to drinking alcohol, using marijuana and social stressors off issues with her spouse. On further review of the Graves' disease, patient states that she was seen in an inpatient status by Dr. nye, she never followed up with her in the office yet as her appointment is made for December but she's been getting periodic blood draws and talking to Dr. nye over the phone. I also called Dr. yne over the phone to clarify and apparently patient has a history of Graves' disease, has been lost to follow-up for a long time and after her last admission to [facility] in October she was discharged on methimazole and propranolol. Dr. nye said that for some unclear reason the patient stopped taking methimazole because she didn't like the way it "made her feel" and because of that and the combination of chronically low counts, Dr. nye recently switched her to PTU. Despite switching ,the patient stopped taking that as well and that Dr. nye recently called her to reinforce taking PTU 100 twice a day. Patient admits to feeling jittery and anxious. She denies nausea vomiting diarrhea, no abdominal pain and says the rest of her problems are psychiatric in nature. Allergies/Medications Allergies: Coded Allergies: No Known Allergies (12/06/16) Home Med List: Budesonide/Formoterol Fumarate (Symbicort 160-4.5 Mcg Inhaler) 160 MCG-4.5 MCG/ ACTUATION HFA.AER.AD 2 PUF INH BID ASTHMA (Reported) Dextroamphetamine/Amphetamine (Dextroamp-Amphetamin 30 MG Tab) 30 MG TABLET 1 TAB PO TID ADHD (Reported) Propylthiouracil 50 MG TABLET THYROID HEALTH (Reported) Current Medications: Current Medications Sig/Luann Start time Last Medication Dose Route Stop Time Status Admin Acetaminophen 500 MG Q6P PRN 12/06 2044 AC 12/07 PO 0409 Acetaminophen 500 MG Q6P PRN 12/06 2014 DC PO Acetaminophen 0 .STK-MED ONE 12/06 2005 DC PO Acetaminophen 0 .STK-MED ONE 12/06 190 DC PO Acetaminophen 650 MG ONCE ONE 12/06 190 DC PO 12/06 190 Al Hydroxide/Mg 30 ML Q4-6 PRN PRN 12/06 2045 AC 12/07 Hydroxide PO 0718 Al Hydroxide/Mg 30 ML Q4-6 PRN PRN 12/06 2014 DC Hydroxide PO Alprazolam 1 MG Q4 12/06 220 DC PO 12/13 2159 Alprazolam 1 MG Q4 12/06 2200 DC 12/07 PO 12/13 2159 0954 Alprazolam 1 MG Q6 12/06 1800 DC 12/06 PO 12/13 1759 1603 Alprazolam 0 .STK-MED ONE 12/06 1556 DC PO Aripiprazole 2 MG AT BEDTIME 12/06 220 AC 12/06 PO 2140 Aripiprazole 2 MG DAILY 12/06 1455 DC PO Budesonide/ 2 PUF BID 12/06 220 DC 12/07 Formoterol Fumarate INH 0956 Gabapentin 100 MG Q6-PRN PRN 12/06 2045 AC PO Gabapentin 100 MG Q6-PRN PRN 12/06 2030 DC PO Gabapentin 300 MG Q6 12/06 1800 AC 12/07 PO 1311 Lorazepam 2.5 MG FOUR TIMES A DAY 12/07 1400 AC 12/07 PO 1311 Lorazepam 2 MG Q2 HRS NEEDED PRN 12/07 1145 AC PO Lorazepam 1 MG Q2 HRS NEEDED PRN 12/07 1145 AC PO Methimazole 15 MG DAILY 12/06 1553 DC 12/07 PO 0955 Ondansetron HCl 4 MG TIDPRN PRN 12/07 1145 AC PO Ondansetron HCl 0 .STK-MED ONE 12/06 190 DC PO Ondansetron HCl 4 MG ONCE ONE 12/06 190 DC PO 12/06 190 Propranolol HCl 20 MG .STK-MED ONE 12/06 214 DC PO 12/06 2141 Propranolol HCl 20 MG BID 12/06 1457 AC 12/07 PO 0954 Propylthiouracil 100 MG BID 12/07 1357 UNVr PO Propylthiouracil 100 MG BID 12/06 2200 CAN PO Trazodone HCl 150 MG QPM 12/06 2200 AC 12/06 PO 2141 Venlafaxine HCl 75 MG DAILY 12/06 1455 12/07 PO 0954 Review of Systems Review of Systems Constitutional: Reports: no symptoms, malaise, weakness. Cardiovascular: Denies: no symptoms, chest pain, edema. Respiratory: Denies: no symptoms, cough, hemoptysis. Genitourinary: Denies: no symptoms, dysuria, frequency. All Other Systems: Reviewed and Negative Comments Patient had a fall a few weeks ago and has a fracture of her left wrist. She says initially it was in a cast and now is in a splint and she has a follow-up orthopedic appointment on December 23. She also says that she's had gallbladder surgery, benign breast tumor removal and tonsillectomy as a child. Past History Travel History Traveled to [place] past 21 day No Medical History Neurological: NONE EENT: NONE Cardiovascular: NONE Respiratory: NONE Gastrointestinal: NONE Hepatic: NONE Renal: NONE Musculoskeletal: falls, fracture (of L wrist one month ago) Psychiatric: anxiety, depression, substance abuse (abusing alcohol and cocaine ) , "ADHD" vs. 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 Home Who Do You Live With? spouse Smoking Status: Unknown If Ever Smoked ETOH Use: alcoholic Illicit Drug Use: denies illicit drug use Other Social History: Pt states that she still living at home with her spouse despite the 2 of them not getting along. She denies tobacco. She admits to alcohol use and says the only's other illicit drug she uses is marijuana. She is unemployed on Social Security. And she has adult grownup children. Exam & Diagnostic Data Last 24 Hrs of Vital Signs/I&O Vital Signs Date Time Temp Pulse Resp B/P B/P Pulse O2 O2 Flow FiO2 Mean Ox Delivery Rate 12/07 1221 76 106/64 12/07 1217 76 106/64 12/07 0954 97.6 66 16 97/59 12/07 0804 97.6 66 97/59 12/07 0743 97.6 66 97/59 12/07 0409 73 16 118/70 12/07 0046 66 16 115/66 12/06 2141 97.8 73 18 133/69 12/06 2125 97.8 73 133/69 12/06 2124 97.8 73 133/69 12/06 1945 100 18 157/81 98 Room Air 12/06 1724 96.5 108 18 131/81 12/06 1724 96.5 108 18 131/81 97 Room Air 12/06 1426 98.0 96 18 148/75 12/06 1422 98.0 96 18 148/75 98 Room Air Intake & Output 12/07 1600 12/07 0800 12/07 0000 Intake Total Output Total Balance Patient 124 lb Weight Physical Exam General Appearance: alert, awake, anxious, thin Head: atraumatic, normal appearance Eyes: Bilateral: normal appearance, PERRL, EOMI. Ears, Nose, Throat: normal pharynx, normal ENT inspection, hearing grossly normal Neck: normal inspection, supple, full range of motion Respiratory: normal breath sounds, chest non-tender, no respiratory distress Cardiovascular: regular rate/rhythm Gastrointestinal: normal bowel sounds, soft, non-tender, no organomegaly Back: normal inspection, normal range of motion Extremities: normal inspection, normal range of motion, no edema Neurologic/Psych: no motor/sensory deficits, awake, alert, oriented x 3, normal gait Other Physical Findings: Patient is slightly tremulous. Otherwise her cranial nerves III-12 appear grossly intact, no motor or sensory deficit. She slightly hyperreflexic. In addition she is thin and appears older than stated age. Last 24 Hrs of Labs/Andry: Laboratory Tests 12/07/16 0450: Hemoglobin A1c Pending, Triglycerides 75, Cholesterol 140, LDL Cholesterol, Calc 73, HDL Cholesterol 52, Cholesterol/HDL Ratio 3 Assessment/Plan Assessment/Plan 56-year-old female past medical history of alcohol use, depression and suicidality and Graves' disease noncompliant with treatment. I spoke to Dr. nye and I'll restart the PTU at 100 twice a day along with the propranolol. Given her borderline white count and absolute neutrophil count is 1200, I will follow that closely. I stressed compliance to the patient and Dr. nye will also stop by and see her in the next 24-48 hours. Treatment of depressive symptoms as per psychiatry. Treatment of alcohol withdrawal as per psychiatry and she needs outpatient follow-up both for her wrist and her Graves' disease on discharge. Problem List: 1. Depression 2. Hyperthyroidism Copies To: AMANDA ZHANG,MINNIE VAGRAS; MER ZHANG,NATALIA Consult Acknowledgment - Thank you for your consult request.
--- NOTE | 2016-12-07 17:46 | NUR ---
PT IS COOPERATIVE WITH STAFF AND PEERS, AND COMPLIANT WITH UNIT RULES. OFTEN IN [place], THOUGH SLIGHTLY WITHDRAWN, STAYING MORE IN THE PERIPHERY. CAN BE SLIGHTLY IRRITABLE AT TIMES. MOOD IS STABLE, AFFECT APPEARS EUTHYMIC TO FULL RANGE, COMMUNICATION IS ORGANIZED AND APPEARS NORMAL IN ALL RESPECTS, AND APPETITE IS NORMAL. PT DENIES SI AT THIS TIME.
[2016-12-08] VITALS (8 sets, daily range): BP systolic 102–114; BP diastolic 51–68
[2016-12-08 08:11] LABS: ABSOLUTE BASOPHIL COUNT 0 /CUMM (0.0-0.2); ABSOLUTE EOSINOPHIL COUNT 0.2 /CUMM (0.0-0.7); ABSOLUTE GRANULOCYTE CT 1.2 /CUMM (1.4-6.5); ABSOLUTE LYMPH COUNT 1.7 /CUMM (1.2-3.4); ABSOLUTE MONOCYTE COUNT 0.4 /CUMM (0.10-0.60); BASOPHIL % 0 % (0.0-2.0); EOSINOPHIL % 7.1 % (0-5); GRANULOCYTE % 33.7 % (42.2-75.2); MEAN CORPUSCULAR HGB 28.1 PG (27.0-31.0); MEAN CORPUSCULAR HGB CONC 32.8 G/DL (33.0-37.0); MEAN CORPUSCULAR VOLUME 85.9 FL (81.0-99.0); MEAN PLATELET VOLUME 7.4 FL (7.4-10.4); PLATELET COUNT 203 /CUMM (130-400); RBC DISTRIBUTION WIDTH 13.6 % (11.5-14.5); RED BLOOD CELL CT 3.73 /CUMM (4.20-5.40); WHITE BLOOD CELL COUNT 3.5 /CUMM (4.8-10.8)
--- NOTE | 2016-12-08 08:13 | SOCIAL WORKER SOCIAL HX PSYCH ---
Social History Basic Assessment Insurance Authorization: Insurance #1: Insurance name: MEDICARE A Phone number: Policy number: [id number] Group number: Authorization number: Curr Source of Income/Entitlements: SSDI, " benefits" Primary Care Physician: Patient's PCP: MINNIE PATEL MD PCP's Present Problem: The patient is a 56 year old, female, who initially presented to the ED with worsening symptoms of depression and suicidal ideations. The patient notes that she continues to feel depressed and has suicidal thoughts, whenever she starts to think about her stressors. She states that she continues to think about overdosing, however feels safe, while in the structure of the inpatient unit. She denies any current AH / VH / HI. She reports that she continues to have decreased appetite, decreased energy, feeling helpless and depressed mood. She was inpatient at [facility] in August of 2016 and was discharged to a sober house. She reports about a week after being in the sober house, she left to return living with her boyfriend. She notes that shortly after she began staying there, he began staying out all night and it was clear that her boyfriend was seeing another woman. She states that the relationship is over and she does not plan to return to his house, where she was living. She is currently seeing Dr. Mcnally in community and states that she is attending 12 step meetings. She denies abusing any current substances and then states that she smokes cannabis daily and took " a methadone pill," from a friend, when she hurt her arm. The patient is motivated to feel better and would like to live with her brother upon discharge and follow up with Dr. Mcnally and 12 step meetings. Primary Language? Scottish Language(s) Spoken At Home: Scottish Living Situation Other Living Arrangement: The patient was living with her boyfriend and plans to move in with her brother upon discharge. Residential Care/Treatment Fac N/A Feel Safe Where You Are Living Yes (N/A) Feel Safe in Relationships? Yes (Not in a relationship) Comments: N/A Allergies - Coded Allergies: No Known Allergies (12/06/16) Current Medications - Scheduled Medications Budesonide/Formoterol Fumarate (Symbicort 160-4.5 Mcg Inhaler) 160 MCG-4.5 MCG/ ACTUATION HFA.AER.AD 2 PUF INH BID ASTHMA #10 (Reported) Entered as Reported by ADELA ARROYO on 12/06/16 1433 Dextroamphetamine/Amphetamine (Dextroamp-Amphetamin 30 MG Tab) 30 MG TABLET 1 TAB PO TID ADHD #90 (Reported) Entered as Reported by ADELA ARROYO on 12/06/16 1432 Miscellaneous Medications Propylthiouracil 50 MG TABLET THYROID HEALTH (Reported) Entered as Reported by ADELA ARROYO on 12/06/16 1433 Discontinued Medications Alprazolam 2 MG TABLET 1 TAB PO QIDPRN ANXIETY #120 (Reported) Discontinued reason: Changed Dose Venlafaxine HCl (Effexor XR) 75 MG CAP.ER.24H 225 MG PO 0800 anti-depressant # 45 TAB Discontinued reason: Changed Dose Consequences of Psych Med Use: N/A Comments: N/A Past History Past Medical History Neurological: NONE EENT: NONE Cardiovascular: NONE Respiratory: NONE Gastrointestinal: NONE Hepatic: NONE Renal: NONE Musculoskeletal: falls, fracture (of L wrist one month ago) Psychiatric: anxiety, depression, substance abuse (abusing alcohol and cocaine ) , "ADHD" vs. 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 DCF Involvement? No Mother's Age (Current/): 76 Relationship w/Mother: "good" Father's Age (Current/): 80 Relationship w/Father: The patients notes that she does not have a relationship with her father. Any Sibling(s)? Yes Sibling's Gender(s)/Age(s): male Sibling 1:, male Sibling 2:, female Sibling 3:, female Sibling 4: Relationship w/Sibling(s): The patient notes that she has regular contact with her four siblings and that those relationships are good. Relationship w/Friends: The patient reports that she has 2 close friends, that she finds to be supportive Family Psych/Sub Abuse/Add Hx: Per history- daughter has opiate addiction and pt says everyone in her family has anxiety Number of Pregnancies: 3 (* Per history) Number of Miscarriages: 1 (*Per history) Number of Abortions: 0 (*Per history) Other Comments: N/A Abuse/Trauma History Trauma History/Current Trauma: Denies (Per history) Abuse/Trauma Treatment: N/A Legal History Legal Guardian/Address/Phone: Self Current Legal Status: none Pending Court Dates: N/A Have you ever been arrested No Number of Arrests: 0 Hx of Juvenile Legal Charges? No Hx of Adult Legal Charges? No Civil Proceedings: N/A Domestic Relations Court: N/A Child Protective Serv Involvmnt N/A Qm Nurse None Psychosocial History Primary Support System: sibling(s), friend Strengths/Capabilities: The patient notes that her brother is a support and that she would like to live with him, when discharged. She also notes having two supportive friends. Weaknesses: The patient has struggled with on and off substance abuse issues. Physical Limitations (Interventions): Pt has a brace on her arm, from an injury, when she fell and broke her left arm. Last Physical: Unknown History of Seizures? No Last Blackout: N/A ADL Limitations: The patient states that she broke her arm. [place]/Social/Peer Relations The patient reports that she has the support of two friends, who she notes are clean and sober. Meaningful Activities: drawing, going to the beach and spending time with family. Childhood Gnosticist: Atheist (* Per history), Mandaen Current Oriental Orthodox Affiliation: no christianity stated Is Spirituality Important to You? "no" Patient's Ethnicity: (*Per History), Scottish (St [place]), , [place] Cultural/Ethnic Issues: none reported Are There Developmental Issues? No Milestones Achieved: fine motor, gross motor Psychiatric Treatment History Psych Treatment Inpatient Treatment Yes Outpatient Treatment Yes Location of Treatment [facility], Dr. Mcnally Reason for Treatment depression Dates of Treatment Last IP was in August [address] Mcnally Response to Treatment The patient notes that she left her sober house, shortly after being discharged from [facility]. 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 Mcnally Treatment of Prior Episodes: Dr. Dali Love and [facility]. Diagnosis: Depression Psychodynamic Issues: N/A Risk Factors: SA/MH hospitalized, substance abuse, limited support Substance Use/Abuse History Drug Use/Abuse 1 Substance Used/Abused Marijuana (see present illness) First Use 22 years old Last Used 12/05/16 How much used/taken Unknown How often Daily For how long Unclear Route of use inhalation Drug Use/Abuse 2 Substance Used/Abused Other (list in comments) (Methadone) First Use 56 years old Last Used Unclear How much used/taken "1 time use" How often The pt. reports that she took one pill from a friend for arm injury. For how long 1 time Route of use Unclear Have Had Periods of Sobriety? Yes Explain: The patient reports that she has been smoking cannabis, however is no longer taking Cocaine. Relapse History? Yes Explain: The patient states that she has a history of being in treatment and sober houses and then relapsing. Have You Ever Attended AA? Yes Do You Attend AA Currently? Yes Do You Have a Sponsor? No Other Community Resources Used: None noted Symptoms of Use: N/A Substance Abuse Treatment Substance Abuse Treatment Inpatient Treatment Yes Outpatient Treatment Yes Location of [facility] Reason for Treatment Cocaine abuse Dates of Treatment Unclear Response to Treatment The patient was discharged to a sober house and left after about 1 week-this episode was after being discharged from [facility] in August of 2016 Comments: N/A Sexual History Sexually Active No # of partners 0 Sexual Orientation Heterosexual Use of Protection No Sexual Concerns: none reproted Education History Highest Level of Education: high school/GED Highest Grade Completed: 12th grade Vocational Year Completed: N/A Number of College Years: 0 College Degree/Major: N/A Other Degree(s): N/A Preferred Learning Style: experiential HX of Learning Difficulties: None reported Barriers to Learning: None reported Special Communication Needs: None reported Employment History Employment Disability Not in Labor Force: Disabled Vocation/Occupational Hx: N/A No. of Jobs in Last 5 Years: 0 Attendance: N/A Comments: N/A History Have You Been in The ? No If Yes, Explain: N/A Type of Discharge: N/A Date of Discharge: N/A Current Mental Status Mental Status Orientation: Person, Place, Situation Affect: Anxious, Hopeless, Sad Speech: WNL Neuro-vegetative: Anhedonia, Appetite Decreased, Concentration Poor, Energy Decreased, Helpless, Sleep Disturbance Appearance Appearance- Dress/Hygiene: The patient was sitting in the chair, in her own attire, neat, clean and with her hair pulled back. Behaviors Thought Process: WNL Thought Content: WNL Memory: WNL Insight: Fair SI/HI Risk Assessment Past Suicidal Ideation/Attempts Yes Current Suicidal Ideation/Att Yes Past Homicidal Ideation/Att: No Current Homicidal Ideation/Attempts No Degree of Intent: Plan, The patient states that she still thinks about overdosing, however feels safe while on the structured inpatient unit. Danger To: Self Gravely Disabled: N/A Risk Factors: High Anxiety/Distress, SA/MH Hospitalization(s), Substance Abuse Lethality Ratin - Conclusion and Recommendations for treatment - and discharge planning Summary: The patient presents with worsening symptoms of depression and suicidal ideation in the setting of ending a relationship, after discovering that her boyfriend has been seeing another woman. She is future focused and does want to get better. She would like to live with her brother upon discharge and return to Dr. Mcnally and to attend 12 step meetings.
--- NOTE | 2016-12-08 11:53 | Cons- Endocrinology ---
General Information and HPI Consulting Request Date of Consult: 12/08/16 Requested By: Dr. Gregorio Reason for Consult: management of Graves' disease Source of Information: patient, old records Exam Limitations: no limitations History of Present Illness: Patient was diagnosed with Graves' disease approximately 6 years ago. She was on medication for a short period of time. Because she left her tear down matcher and then the treatment was discontinued. In 09/2016, she was admitted for major depression and suicidal ideation. Blood work demonstrated TSH less than 0.015 and free T4 6.02, TT3 4.67, anti TPO > 1300 and anti Tg was > 500; her TSI was 447. She was restarted on Methimazole 10 mg twice a day. On 10/10/2016, repeat TSH was < 0.015, free T4 2.41 and TT3 2.61. She was discharged home on Methimazole 15 mg daily. After she was discharged from hospital, she wasn't taking the thyroid medication as it was recommended. She didn't like the way she felt when she was on Methimazole and she requested trying PTU. She was recommended to take PTU 50 mg x 2 tablets twice a day, but she was on PTU only 50 mg twice a day. Patient was admitted to [facility] again for major depression. Repeat blood work showed TSH < 0.015, free T4 5.14 and 4.95. WBC 2.9; both AST and ALT were in the normal range. She was put on PTU 100 mg twice a day and Propranolol 20 mg twice a day. Am lab this morning showed WBC 3.5. Clinically she feels less anxious. Allergies/Medications Allergies: Coded Allergies: No Known Allergies (12/06/16) Home Med List: Budesonide/Formoterol Fumarate (Symbicort 160-4.5 Mcg Inhaler) 160 MCG-4.5 MCG/ ACTUATION HFA.AER.AD 2 PUF INH BID ASTHMA (Reported) Dextroamphetamine/Amphetamine (Dextroamp-Amphetamin 30 MG Tab) 30 MG TABLET 1 TAB PO TID ADHD (Reported) Propylthiouracil 50 MG TABLET THYROID HEALTH (Reported) Review of Systems Review of Systems Constitutional: Reports: see HPI. Cardiovascular: Denies: chest pain, palpitations. Respiratory: Denies: short of breath. GI: Denies: abdominal pain. Musculoskeletal: Denies: back pain. Past History Travel History Traveled to [place] past 21 day No Medical History Neurological: NONE EENT: NONE Cardiovascular: NONE Respiratory: NONE Gastrointestinal: NONE Hepatic: NONE Renal: NONE Musculoskeletal: falls, fracture (of L wrist one month ago) Psychiatric: anxiety, depression, substance abuse (abusing alcohol and cocaine ) , "ADHD" vs. 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 Home Who Do You Live With? spouse Smoking Status: Unknown If Ever Smoked ETOH Use: alcoholic Illicit Drug Use: denies illicit drug use Other Social History: Pt states that she still living at home with her spouse despite the 2 of them not getting along. She denies tobacco. She admits to alcohol use and says the only's other illicit drug she uses is marijuana. She is unemployed on Social Security. And she has adult grownup children. Employment History Employment: Disability Profession/Employer: N/A Exam & Diagnostic Data Last 24 Hrs of Vital Signs/I&O Vital Signs Date Time Temp Pulse Resp B/P B/P Pulse O2 O2 Flow FiO2 Mean Ox Delivery Rate 12/08 812 98.6 76 97 102/51 / 0808 98.6 76 102/51 / 0748 98.9 76 102/51 / 2048 97.3 79 97 124/69 / 2005 79 97 124/69 12/07 1951 97.3 79 124/69 / 1628 68 101/61 12/07 1627 68 101/61 / 1221 76 106/64 07/ 1217 76 106/64 Physical Exam General Appearance: no apparent distress Neck: thyromegaly Respiratory: lungs clear Cardiovascular: regular rate/rhythm Gastrointestinal: soft, non-tender Extremities: positive fine tremors Labs/Andry Results: Laboratory Tests 12/08 12/07 0633 0450 Chemistry Hemoglobin A1c (4.2 - 5.8 %) 5.3 Triglycerides (<150 mg/dL) 75 Cholesterol (<200 MG/DL) 140 LDL Cholesterol, Calc (65 - 129 mg/dL) 73 HDL Cholesterol (40 - 60 mg/dL) 52 Cholesterol/HDL Ratio (0.00 - 4.23 %) 3 Hematology CBC w Diff MAN DIFF ORDERED WBC (4.8 - 10.8 /CUMM) 3.5 L RBC (4.20 - 5.40 /CUMM) 3.73 L Hgb (12.0 - 16.0 G/DL) 10.5 L Hct (37 - 47 %) 32.0 L MCV (81.0 - 99.0 FL) 85.9 MCH (27.0 - 31.0 PG) 28.1 RDW (11.5 - 14.5 %) 13.6 Plt Count (130 - 400 /CUMM) 203 MPV (7.4 - 10.4 FL) 7.4 Gran % (42.2 - 75.2 %) 33.7 L Lymphocytes % (20.5 - 51.1 %) 47.6 Monocytes % (1.7 - 9.3 %) 11.6 H Eosinophils % (0 - 5 %) 7.1 H Basophils % (0.0 - 2.0 %) 0 L Absolute Granulocytes (1.4 - 6.5 /CUMM) 1.2 L Segmented Neutrophils (42.2 - 75.2 %) 32 L Band Neutrophils (0.0 - 5.0 %) 1 Absolute Lymphocytes (1.2 - 3.4 /CUMM) 1.7 Lymphocytes (20.5 - 51.1 %) 58 H Monocytes (1.7 - 9.3 %) 7 Absolute Monocytes (0.10 - 0.60 /CUMM) 0.4 Eosinophils (0 - 5.0 %) 2 Absolute Eosinophils (0.0 - 0.7 /CUMM) 0.2 Absolute Basophils (0.0 - 0.2 /CUMM) 0 Platelet Estimate (ADEQUATE) ADEQUATE Hypochromic-Microcytic 1+ Anisocytosis 1+ PUBS MCHC (33.0 - 37.0 G/DL) 32.8 L Serology Hep Bs Antigen Pending Hepatitis C Antibody Pending HIV 1&2 Ab Western Blot Pending 12/06 12/06 1302 1256 Chemistry Sodium (137 - 145 mmol/L) 137 Potassium (3.5 - 5.1 mmol/L) 4.2 Chloride (98 - 107 mmol/L) 105 Carbon Dioxide (22 - 30 mmol/L) 22 Anion Gap (5 - 16) 10 BUN (7 - 17 mg/dL) 11 Creatinine (0.5 - 1.0 mg/dL) 0.4 L Estimated GFR (>60 ml/min) > 60 BUN/Creatinine Ratio (7 - 25 %) 27.5 H Glucose (65 - 99 mg/dL) 124 H Calcium (8.4 - 10.2 mg/dL) 9.6 Total Bilirubin (0.2 - 1.3 mg/dL) 0.5 AST (14 - 36 U/L) 15 ALT (9 - 52 U/L) 20 Alkaline Phosphatase (<127 U/L) 118 Total Protein (6.3 - 8.2 g/dL) 6.2 L Albumin (3.5 - 5.0 g/dL) 3.7 Globulin (1.9 - 4.2 gm/dL) 2.5 Albumin/Globulin Ratio (1.1 - 2.2 %) 1.5 TSH (0.270 - 4.200 uIU/mL) < 0.015 L Free T4 (0.64 - 1.79 ng/dL) 5.14 H Total T3 (0.97 - 1.69 ng/mL) 4.95 H Hematology CBC w Diff MAN DIFF ORDERED WBC (4.8 - 10.8 /CUMM) 2.9 L RBC (4.20 - 5.40 /CUMM) 4.35 Hgb (12.0 - 16.0 G/DL) 12.2 Hct (37 - 47 %) 36.8 L MCV (81.0 - 99.0 FL) 84.5 MCH (27.0 - 31.0 PG) 28.0 RDW (11.5 - 14.5 %) 14.1 Plt Count (130 - 400 /CUMM) 285 MPV (7.4 - 10.4 FL) 6.9 L Segmented Neutrophils (42.2 - 75.2 %) 52 Lymphocytes (20.5 - 51.1 %) 36 Monocytes (1.7 - 9.3 %) 10 H Eosinophils (0 - 5.0 %) 2 Platelet Estimate (ADEQUATE) VERIFIED BY SMEAR Poikilocytosis 1+ Ovalocytes 1+ PUBS MCHC (33.0 - 37.0 G/DL) 33.2 Toxicology Urine Opiates Screen (>2000 NG/ML) < 100.00 Methadone Screen (>300 NG/ML) 472 H Barbiturate Screen (>200 NG/ML) < 60 Ur Phencyclidine Scrn (>25 NG/ML) < 6.00 Amphetamines Screen (>1000 NG/ML) > 1450 H U Benzodiazepines Scrn (>200 NG/ML) > 800 H Urine Cocaine Screen (>300 NG/ML) < 50 Urine Cannabis Screen (>50 NG/ML) 71.30 H Serum Alcohol (<10 MG/DL) < 10.0 Assessment/Plan Assessment/Plan 56 y/o female, hx of Graves' disease, depression and anxiety, substances abuse and noncompliance, was admitted for major depression. Her thyroid function was found to be significantly elevated. Her WBC has been borderline low. However, repeat WBC from this morning is improving. She was put on PTU 100 mg twice a day and Propranolol 20 mg twice a day. She feels less anxious this morning. Plan: 1. continue PTU 100 mg twice a day and Propranolol 20 mg twice a day for now; 2. monitor free T4 and TT3 tomorrow morning to look for a trend; 3. monitor LFT; 4. discussed with patient regarding to the option of definitive treatments for Graves' disease, She would like to consider thyroid surgery. I will refer her to see Dr. Gorman after her thyroid function is controlled. will follow. Consult Acknowledgment - Thank you for your consult request.
--- NOTE | 2016-12-08 13:08 | NUR ---
PT IS COMPLAIANT AND COOPERATIVE WITH UNIT RULES. PT IS OUT IN THE COMMUNITY INTERACTING WELL WITH STAFF AND PEERS. PT IS ATTENDING GROUPS. PT MOOD IS STABLE WITH A FLAT AFFECT. PT DENIES SI THOUGHTS.
--- NOTE | 2016-12-08 17:10 | CP SOUTH PROGRESS NOTE PSYCH ---
Psych (Inpt) Progress Note Progress Note Include the following elements, when applicable: Involvement in the active treatment of the patient with behavioral observations of the patient and the patient's response to the treatment. Review of the ongoing treatment process in the context of the treatment plan. Indication of how multi-disciplinary staff members are carrying out the treatment plan. Plans for future interventions and recommendations for revision of the treatment plan. Liaison with other physicians/providers. Progress Note: PSYCHIATRIST NOTE, 12/08/2016: I discussed this patient's presentation and progress thus far, current mental status, treatment and discharge planning with staff team today in the daily morning ITTM and met with her myself in individual session. This patient is well known to me from her recent [facility] admission in late 09/2016; at that time, after considerable effort on the part of social work she had been discharged to a sober living facility in [place], [place]. Patient thought it would give her the opportunity to form new positive relationships (e.g. through A.A.) in a "fresh environment." However, in little more than a week she was ejected from the program when she violated curfew, staying away overnight with her longtime boyfriend; since then she has been living unhappily in boyfriend's house; the latter recently started staying away from home overnight with "a new girlfriend;" patient has continued to reside in /'s home, taking care of his elderly and infirm father; she is currently determined to not return to the home of [place] but stay with her brother in his "big house in [place]" instead which she asserts is a sober, supportive environment; apparently, brother is now more or less alone in his large house and seeking company from his sister; the latter arrangement, along with regular A.A. meeting attendance, one or two good sponsors and aftercare in our own dual focus IOP (and patient's own plan to discontinue her appointments with and medication by Dr. Mcnally (who has been supplying both the Xanax and Adderall) would seem to be a reasonable f/u program to start with going forward. During recent admission, patient's high dose Adderall was discontinued and high dose Xanax (6mg/day) tapered to 4mg daily with plan for further taper and eventual discontinuation; dose of Effexor was stabilized at 225mg/day and low dose Abilify added with benefit; however, promptly upon being kicked of the program in [place] and return to the local area patient increased her consumption of Xanax again to 6mg and recently as high as 8mg/day! She also resumed Adderall at 90mg/day and has now been completely off Effexor for at least several days or more FILAMENT CUTTER. Adderall was held on admission; I completely agree with this. Patient claims to be willing to taper away from benzodiazepines but asked that she be switched back to Xanax from Ativan for the detox which I will do, coupled with patient's agreement to at least initially reduce daily dose of Xanax by 1mg/day (starting from 2mg 3x/ day). She is positive with regard to upward titration in current dose of Effexor XR (only 75mg/day now because she had been off it for some time FILAMENT CUTTER), initially by doubling dose to 150mg daily but with possible upward dose titration to 225-300mg/day range during course of admission. She complains of racing and ruminative thoughts during the day and at night keeping her from sleeping soundly and is willing to increase Abilify from 2mg to 5mg HS with additional PRN's and encouragement to utilize them. Despite the above recent history, patient does appear less emaciated and sickly than she had in 09/2016 and not quite as intensely depressed and suicidality more in control; affect and mood appear to be slowly improving and patient was not tearful during our initial encounter today. Patient had also neglected treatment for hyperthyroidism during the interval since discharge in early Spring of this year ; she switched over to propylthiouracil but has only been taking, at most, 50mg 2x/day, not the 100mg twice daily prescribed by ski production supervisor, Dr. Dalton; the latter has already consulted with patient since admission and continues to monitor her abnormal TFT's; patient has also been evaluated by powerplant operator, Tamika Banks M.D. who concurs in Dr. Dalton's treatment plan. Patient is back on propranolol, 20mg 2x/day to help control her heart rate at least until hyperthyroid state in under adequate control; patient continues to be interested in pursuing thyroid ablation/surgical remediation for more permanent control of/ balance to thyroid function.
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
--- NOTE | 2016-12-08 18:19 | NUR ---
PT IS CALM, COOPERATIVE WITH STAFF AND PEERS, AND COMPLIANT WITH UNIT RULES. BOTH IN AND OUT OF [place]IE[place], PT IS INTERACTING TO AN EXTENT WITH OTHERS. CAN BE SLIGHTLY ISOLATIVE/WITHDRAWN AT TIMES. MOOD IS STABLE, AFFECT IS EUTHYMIC TO FULL RANGE, COMMUNICATION IS ORGANIZED AND APPEARS NORMAL IN ALL RESPECTS, AND APPETITE IS NORMAL. PT DENIES SI AT THIS TIME.
[2016-12-09] VITALS (8 sets, daily range): BP systolic 89–115; BP diastolic 49–67
--- NOTE | 2016-12-09 11:19 | PN- Endocrinology ---
Assessment/Plan Assessment: 56 y/o female, hx of Graves' disease, depression and anxiety, substances abuse and noncompliance, was admitted for major depression. Her thyroid function was found to be significantly elevated. Her WBC has been borderline low. However, repeat WBC on 12/08/2016 was improving. She was put on PTU 100 mg twice a day and Propranolol 20 mg twice a day. She feels less anxious. On 12/09/2016-- free T4 4.57 and TT3--her TFT is improving. Plan: continue the current PTU 100 mg twice a day and Propranolol 20 mg twice a day for now; monitor free T4, TT3, CBC and LFT next week. will follow. Subjective Subjective: She feels less anxious. Objective Last 24 Hrs of Vital Signs/I&O Vital Signs Date Time Temp Pulse Resp B/P B/P Pulse O2 O2 Flow FiO2 Mean Ox Delivery Rate 12/09 0636 98.0 66 97 101/51 12/09 0735 66 101/51 12/09 0732 98.0 66 101/51 / 2214 66 111/65 / 1954 99.2 66 111/65 12/08 1952 99.2 66 111/65 /03 1605 70 114/68 03 1557 70 114/68 /03 1231 63 103/60 07/03 1230 63 103/60 Results Pertinent Lab/Andry Results: Laboratory Tests 12/09 06 Chemistry Total Bilirubin (0.2 - 1.3 mg/dL) 0.3 Direct Bilirubin (< 0.4 mg/dL) 0.1 AST (14 - 36 U/L) 12 L ALT (9 - 52 U/L) 20 Alkaline Phosphatase (<127 U/L) 100 Total Protein (6.3 - 8.2 g/dL) 5.4 L Albumin (3.5 - 5.0 g/dL) 3.2 L Free T4 (0.64 - 1.79 ng/dL) 4.57 H Total T3 (0.97 - 1.69 ng/mL) 3.26 H
--- NOTE | 2016-12-09 12:45 | NUR ---
PT IS STABLE WITH FULL RANGE OF AFFECT. OT WAS UPSET ABOUT BEING WOKEN UP BY HER ROOMMATE THIS AM AND RETURNED TO BED AFTER BREAKFAST TO REST. PT WAS IRRITABLE IN REGARDS TO BEING WOKEN UP BUT BECAME MORE PLEASANT THE DAY PROGRESSED. PT HAS BEEN ATTENDING SOME GROUPS. PT IS CURRENTLY PLAYING [email or web address]. VS ARE STABLE AND DENIES ANY SI/HI.
--- NOTE | 2016-12-09 18:09 | NUR ---
PT IS COMPLIANT AND COOPERATIVE WITH UNIT RULES. PT IS OUT IN THE COMMUNITY ITNERACTING WELL WITH STAFF AND PEERS. PT MOOD IS STABLE WITH A EUYTHMIC AFFECT. PT IS ATTENDING GROUPS. PT DENIES SI THOUGHTS.
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
[2016-12-10] VITALS (7 sets, daily range): BP systolic 96–116; BP diastolic 51–66
--- NOTE | 2016-12-10 06:32 | NUR ---
PATIENT SLEPT ALL NIGHT.
--- NOTE | 2016-12-10 11:41 | SOCIAL WORKER PROG NOTE PSYCH ---
Social Work Progress Note Progress Note Asked Beena if she spoke with her Brother about a meeting or phone conference? She said he would be available for a phone conference, but a time was not put in place. I had her try and call her Brother around 11am, but she got his voicemail. She will keep trying. Beena talked with her Brother, who told her he will be available tomorrow at 3pm for a phone conference. Beena shared that she woke up feeling achy this morning and with a headache. She looks tired. Presents with contricted affect. Still feeling down, but makes positive statements about moving on from her boyfriend. She stated she is trying to think logically about the situation. Obvious that she feels hurt though still. She keeps indicating that things will improve once she is with family. Talked about going to [facility] as an aftercare plan. She initially stated she wanted to go to [facility], but when I told her she will need to be off any benzos she stated "I'm willing to go down, but not off completely." She asked about a referral to [facility] in [place]. I told her I would look into it. Complained about her roommate some. She realizes that she is bipolar and having some difficulties, she is feeling frustrated about sharing a room with her right now. Called [facility] to inquire about a couple of things. I will need to contact them back tomorrow to get answers to questions about insurance coverage and if they will work with her on a benzo.
--- NOTE | 2016-12-10 11:53 | NUR ---
PT VISIBLE IN THE [facility]IEU SOME OF THE DAY. PT REPORTS NOT FEELING TOO WELL TODAY BUT DID MAKE IT TO SOME OF THE GROUPS TODAY. SHE HAS SOME INTERACTIONS WITH PEERS, AND COMPLAINT WITH THE RULES OF THE UNIT. PT IS NOT SCORING ON HER CIWA. SHE DENIES THOUGHTS OF HURTING HERSELF WHEN ASKED.
--- NOTE | 2016-12-10 18:10 | NUR ---
PT IS CALM, COOPERATIVE WITH STAFF AND PEERS, AND COMPLIANT WITH UNIT RULES. BOTH IN AND OUT OF MILIEU, INTERACTING TO AN EXTENT WITH OTHERS. MOOD IS STABLE, AFFECT APPEARS EUTHYMIC TO FULL RANGE, COMMUNICATION IS ORGANIZED AND APPEARS NORMAL IN ALL RESPECTS, AND APPETITE IS NORMAL. PT DENIES SI AT THIS TIME.
--- NOTE | 2016-12-10 19:32 | CP SOUTH PROGRESS NOTE PSYCH ---
Psych (Inpt) Progress Note Progress Note Include the following elements, when applicable: Involvement in the active treatment of the patient with behavioral observations of the patient and the patient's response to the treatment. Review of the ongoing treatment process in the context of the treatment plan. Indication of how multi-disciplinary staff members are carrying out the treatment plan. Plans for future interventions and recommendations for revision of the treatment plan. Liaison with other physicians/providers. Progress Note: PSYCHIATRIST NOTE, 12/10/2016: I discussed this patient's progress to date, current mental status, treatment and discharge planning with staff team today in the daily morning ITTM and also met with her again myself in individual session. Her mood is still sad and somewhat discouraged but improving. She continues to plan to live with brother after discharge but told me today that over the coming weekend he and her parents will be away from home, leaving the house completely empty; I do not want to discharge this patient to an unoccupied residence over a weekend. Patient is tolerating the initial stages of Xanax taper, down from 6mg to total of 5mg today (1.5-1.5-2mg) and is willing to continue reduction in dose tomorrow to 4mg (as 1.5-1-1.5mg); patient still does not believe she will be able to completely taper away dose of Xanax during a limited hospital stay, but we will continue to lower dose by 1mg and eventually perhaps 0.5mg/day. Patient denied any problems/side effects from increase in Effexor XR to 187.5mg/day and agreed to further upward titration to 225mg/day tomorrow, 12/11/2016; we may titrate all the way to 300mg daily over the coming weekend depending upon tolerability and response.
[2016-12-11] VITALS (8 sets, daily range): BP systolic 105–111; BP diastolic 59–67
--- NOTE | 2016-12-11 14:09 | NUR ---
PT WAS PRESENT IN SOME GROUPS, ENGAGED. HER GOAL OF THE DAY WAS TO PREPARE FOR FAMILY MEETING. PT WAS COOPERATIVE, PLEASANT, FOLLOWING RULES. PT DENIES SI WHEN ASKED.
--- NOTE | 2016-12-11 15:42 | CP SOUTH PROGRESS NOTE PSYCH ---
Psych (Inpt) Progress Note Progress Note Include the following elements, when applicable: Involvement in the active treatment of the patient with behavioral observations of the patient and the patient's response to the treatment. Review of the ongoing treatment process in the context of the treatment plan. Indication of how multi-disciplinary staff members are carrying out the treatment plan. Plans for future interventions and recommendations for revision of the treatment plan. Liaison with other physicians/providers. Progress Note: PSYCHIATRIST NOTE (TELEPHONIC FAMILY MEETING WITH BROTHER), 12/11/2016: I discussed this patient's slow progress to date, current mental status, treatment and discharge planning with staff team today in the daily morning ABIGAIL and Deirdre Altamirano LCSW, and I met with patient and her brother Rigo (the latter over telephonic link) today. Brother confirmed that patient is welcome to stay with him and his family (and patient and brother's mother) in his home in [facility], upon discharge from [facility] which is now planned for 10/15/2016; the family will be away and the house empty over the coming weekend but brother will return on 10/15. He made it quite clear that this will likely be the last time he is willing to help his sister in this way, that after this she would truly "be on her own" in any future crises. Brother is very concerned about his sister's benzodiazepine use/dependence; we spoke at length about plans for continuing taper of regular Xanax dose over the coming weekend with goal of reducing to 2mg a day or less, if well tolerated by patient and understanding that too rapid a Xanax taper after "years" of use could risk withdrawal seizure( s); dose of Xanax is down to 4mg/day today; plan is for further reduction to 3mg /day (1mg 3x/day) tomorrow with attempt at further slower taper over the weekend. Patient is tolerating upward titration in dose of Effexor XR to 225mg/ day; patient agreed to continue up to 262.5mg daily as of tomorrow, 12/12/2016. Patient's mood is slowly improving, suicidality beginning to resolve with some future orientation at this time. Going forward, patient can be accepted into the [facility] for IOP but would need a separate prescriber for remaining dose of Xanax ; she is also expected to regularly attend local A.A./N.A. meetings and communicate frequently with a sponsor.
--- NOTE | 2016-12-11 16:09 | SOCIAL WORKER PROG NOTE PSYCH ---
Social Work Progress Note Progress Note Talked with staff (Merissa) at [facility] today. They would be willing to take Beena into IOP on a benzo only if she has an outside prescriber. Their financial person indicated that she should not have a copay due to having Mesha C. I scheduled an intake for her for 12/22 at 9am with Sb. Discharge info should be faxed to [phone]. Met with Beena and discussed the above information. She mentioned not wanting to return to Dr. Mcnally and that her son may have a doctor for her to go to. I talked to her about sticking with a doctor that specializes in mental health. Beena reported feeling well. Stated she is thinking about her future. When asked specifically what about? She said going to AA/ NA meetings and going to IOP. Dr. Rubio joined the meeting at that point and we conferenced in her Brother Rigo. Rigo taked about how he has been through all of this before with Beena. He is really hoping she will stay off of drugs. He is fine with her staying with him, his , and their Mother. Dr. Rubio informed him of the Xanax taper and how she will remain on 2mg of Xanax at discharge that can be tapered slowly in the community. Rigo said he would be willing to give her the medications so she doesn't abuse them. Beena was willing to accept that help. Rigo reminded her that her kids need her and he is giving her this last opportunity with the family. Rigo's address is [address] [place] [address]. in [place]. Discussed discharge for Thursday at 11am. Rigo will pick her up. Beena will reach out to her son to see if he had the name of the doctor he was looking into. If not, we will explore one.
--- NOTE | 2016-12-11 20:50 | NUR ---
PT HAS BEEN ISOLATIVE AND WITHDRAWN, REMAINING IN BED FOR MAJORITY OF EVENING. MINIMAL INTERACTION WITH PEERS BUT IS PLEASANT WHEN SOCIALIZING WITH THEM. COOPERATIVE AND COMPLIANT WITH STAFF. NO COMPLAINTS OR SI REPORTED. PT HAS A STABLE MOOD AND FLAT AFFECT.
[2016-12-12] VITALS (8 sets, daily range): BP systolic 93–108; BP diastolic 55–60
[2016-12-12 08:18] LABS: ABSOLUTE BASOPHIL COUNT 0 /CUMM (0.0-0.2); ABSOLUTE EOSINOPHIL COUNT 0.2 /CUMM (0.0-0.7); ABSOLUTE GRANULOCYTE CT 1.1 /CUMM (1.4-6.5); ABSOLUTE LYMPH COUNT 1.7 /CUMM (1.2-3.4); ABSOLUTE MONOCYTE COUNT 0.3 /CUMM (0.10-0.60); BASOPHIL % 0 % (0.0-2.0); EOSINOPHIL % 7.3 % (0-5); GRANULOCYTE % 33.9 % (42.2-75.2); HEMATOCRIT 34.6 % (37-47); MEAN CORPUSCULAR HGB CONC 32.5 G/DL (33.0-37.0); MEAN CORPUSCULAR VOLUME 86.3 FL (81.0-99.0); MEAN PLATELET VOLUME 7.6 FL (7.4-10.4); PLATELET COUNT 198 /CUMM (130-400); RBC DISTRIBUTION WIDTH 13.6 % (11.5-14.5); RED BLOOD CELL CT 4.01 /CUMM (4.20-5.40); WHITE BLOOD CELL COUNT 3.4 /CUMM (4.8-10.8)
--- NOTE | 2016-12-12 10:09 | SOCIAL WORKER PROG NOTE PSYCH ---
Social Work Progress Note Progress Note Phoned Dr. Yuen in [place], [facility] in [place],(both do not accpet Medicare/[facility]) Meek Davidson APRN (no more referrals) in [place], none of these prescribers can accept Beena as a patient. Phoned [facility] [phone], [place] location - left voicemail for Deanna Carrizales LCSW (screener) and Faxed Clinical. INformed that Ms. Carrizales (screener changes daily) she will call back either today or Thu. 12/17. Also, called [facility] in [place], Ivett (clinician) left a voicemail to see if they can prescribe psychiatric medications. Asked for call back to Deirdre Altamirano LCSW. Tried to contact Dr. Gilmore, PCP at [facility]
--- NOTE | 2016-12-12 11:33 | NUR ---
PT HAS BEEN CONSTRICTED AND WITHDRAWN DURING THE EARLY AM BUT HAS MADE AN EFFORT TO ATTEND GROUP LATER IN THE DAY. SHE APPEARS TO BE MORE ANXIOUS THAN PREVIOUS OBSERVATIONS, REMAINING IN BED AND APPEARING LETHARGIC. SHE HAS NOT COMMUNICATED MUCH WITH STAFF OR PEERS BUT HAS DENIED ANY THOUGHTS OF SI WHEN ASKED BY STAFF. .
--- NOTE | 2016-12-12 15:15 | SOCIAL WORKER PROG NOTE PSYCH ---
See Addendum Social Work Progress Note Progress Note Patient discussed in team meeting. Approval was give to refer to OPS. Called Beena's Brother and requested we push back discharge on Thursday until 1pm. The Brother was fine with that. Beena and I talked later about the attempts made to find a psychiatrist. She was fine with the idea of a referral to our outpatient clinic. She reports feeling tired today. Asked about feelings of depression. She said "I'm not happy with myself". Discussed reframing negative self talk to postive statements. She was able to do this, stating "I'm doing the right thing now." She talked about looking forward to leaving on Thursday and reconnecting with family. She also talked about all the animals that are at her Brother's house. She will help care for them. Talked about going to an AA meeting on Thursday night if she can get there. She has a meeting picked out that she would like to go to at 5pm.
--- NOTE | 2016-12-12 17:19 | NUR ---
PT IS CALM, COOPERATIVE WITH STAFF AND PEERS, AND COMPLIANT WITH UNIT RULES. BOTH IN AND OUT OF MILIEU. INTERACTING WITH OTHERS TO AN EXTENT. MOOD IS STABLE, AFFECT APPEARS EUTHYMIC TO FULL RANGE, COMMUNICATION IS ORGANIZED AND APPEARS NORMAL IN ALL RESPECTS, AND APPETITE IS NORMAL. PT DENIES SI AT THIS TIME.
[2016-12-13] VITALS (7 sets, daily range): BP systolic 101–125; BP diastolic 58–73
--- NOTE | 2016-12-13 07:03 | NUR ---
PATIENT SLEPT ALL NIGHT.
--- NOTE | 2016-12-13 11:00 | CP SOUTH PROGRESS NOTE PSYCH ---
Psych (Inpt) Progress Note Progress Note Include the following elements, when applicable: Involvement in the active treatment of the patient with behavioral observations of the patient and the patient's response to the treatment. Review of the ongoing treatment process in the context of the treatment plan. Indication of how multi-disciplinary staff members are carrying out the treatment plan. Plans for future interventions and recommendations for revision of the treatment plan. Liaison with other physicians/providers. Progress Note: PSYCHIATRIST NOTE (for 12/12/2016): I discussed this patient's slow progress to date, current mental status, treatment and discharge planning with staff team today in the daily morning ITTM and also met with her again myself in individual session. She continues to tolerate the fairly rapid tapering of Xanax dose; she had been taking 6-8mg/day previously; dose has been tapered to 3mg/day (1mg 3x/day); I plan to slow remaining taper, given 2.5mg/day on 12/13 and 12/14/2016 and decreasing to 2mg daily as of 12/15/2016, if taper continues to be well-tolerated; if patient is discharged on the latter date as currently planned, she will likely need to remain on 1.5-2mg/day of Xanax for the present with instructions as to further slow taper and complete discontinuation on an outpatient basis; patient is in agreement with the above plan, appears to sincerely wish to get off the Xanax entirely but after being on it for such an extended period of time is justifiably cautious/apprehensive to a degree. Endocrine wireless sales consultant, Dr. Dalton, continues to follow patient's thyroid status (severely hyperthyroid again after poor outpatient medication compliance with propylthiouricil [employer]); thryoids will be repeated in AM 12/15/[address] Dalton should be asked to review these and make any appropriate adjustments to dose, set up aftercare appointment, ongoing bloodwork monitoring. Patient has been tolerating the upward titration in dose of Effexor XR well but now reporting some increasing fatigue during the day despite the steady taper of Xanax; she agreed to increasing dose of Effexor XR to total of 300mg/day, but I will split that dose at 150mg at 8am and 5pm over coming weekend; we have been monitoring patient's blood pressure with increases in Effexor XR; if anything, BP readings are coming down slightly, not going up. Patient will be receiving aftercare in [facility]; Ms. Altamirano will be setting this up for next week. Patient has not been requiring any PRN Abilify, tolerating the low HS dose (5mg) well to date and sleeping better. Mood is slowly improving with begnning resolution of suicidality as she becomes more future-focused.
--- NOTE | 2016-12-13 12:55 | PN- Endocrinology ---
Assessment/Plan Assessment: 56 y/o female, hx of Graves' disease, depression and anxiety, substances abuse and noncompliance, was admitted for major depression. Her thyroid function was found to be significantly elevated. Her WBC has been borderline low. However, repeat WBC on 12/08/2016 was improving. She was put on PTU 100 mg twice a day and Propranolol 20 mg twice a day. She feels less anxious. On 12/09/2016-- free T4 4.57 and TT3 3.26. Repeat TFT on 12/12/2016 showed free T4 3.61 and TT3 3.06; AST 16 and ALT 25; WBC 3.4. Plan: continue the current PTU 100 mg twice a day; continue the current Propranolol 20 mg twice a day; f/u in office in 01/2017. Patient already has a f/u scheduled with me. I will refer her to see Dr. Gorman for thyroid surgical evaluation after her TFT is controlled. Subjective Subjective: she feels better. Most likely she is going to be discharged on Thursday. Objective Last 24 Hrs of Vital Signs/I&O Vital Signs Date Time Temp Pulse Resp B/P B/P Pulse O2 O2 Flow FiO2 Mean Ox Delivery Rate 12/13 1201 75 105/59 12/13 0841 77 101/58 12/13 0811 98.5 77 101/58 12/12 2104 96.1 71 97 108/60 12/12 2012 96.1 71 108/60 12/12 2002 96.1 71 108/60 12/12 1626 70 100/55 12/12 1620 70 100/55 Results Pertinent Lab/Andry Results: Laboratory Tests 12/12 612 Chemistry Total Bilirubin (0.2 - 1.3 mg/dL) 0.3 Direct Bilirubin (< 0.4 mg/dL) 0.2 AST (14 - 36 U/L) 16 ALT (9 - 52 U/L) 25 Alkaline Phosphatase (<127 U/L) 95 Total Protein (6.3 - 8.2 g/dL) 5.5 L Albumin (3.5 - 5.0 g/dL) 3.3 L Vitamin B12 (239 - 931 pg/mL) 355 Free T4 (0.64 - 1.79 ng/dL) 3.61 H Total T3 (0.97 - 1.69 ng/mL) 3.06 H Hematology CBC w Diff NO MAN DIFF REQ WBC (4.8 - 10.8 /CUMM) 3.4 L RBC (4.20 - 5.40 /CUMM) 4.01 L Hgb (12.0 - 16.0 G/DL) 11.3 L Hct (37 - 47 %) 34.6 L MCV (81.0 - 99.0 FL) 86.3 MCH (27.0 - 31.0 PG) 28.0 RDW (11.5 - 14.5 %) 13.6 Plt Count (130 - 400 /CUMM) 198 MPV (7.4 - 10.4 FL) 7.6 Gran % (42.2 - 75.2 %) 33.9 L Lymphocytes % (20.5 - 51.1 %) 49.2 Monocytes % (1.7 - 9.3 %) 9.6 H Eosinophils % (0 - 5 %) 7.3 H Basophils % (0.0 - 2.0 %) 0 L Absolute Granulocytes (1.4 - 6.5 /CUMM) 1.1 L Absolute Lymphocytes (1.2 - 3.4 /CUMM) 1.7 Absolute Monocytes (0.10 - 0.60 /CUMM) 0.3 Absolute Eosinophils (0.0 - 0.7 /CUMM) 0.2 Absolute Basophils (0.0 - 0.2 /CUMM) 0 PUBS MCHC (33.0 - 37.0 G/DL) 32.5 L
--- NOTE | 2016-12-13 14:38 | NUR ---
PT IS STABLE WITH FULL RANGE OF AFFECT. PT DID NOT ATTEND ANY GROUPS THIS AM. SHE HAS BEEN IN THE LOUNGE/KITCHEN SOCIALIZING WITH PEERS/STAFF. PT IS APPROPRIATE TO THE UNIT. VS ARE STABLE AND DENIES ANY SI/HI TO THIS MHW.
--- NOTE | 2016-12-13 15:08 | NUR ---
DR. DEL ANGEL VISITED PT AND INFORMED THIS RN THAT IS THE PT DISCHARGES ON THURSDAY THEN HER MEDICATIONS AND EVERYTHING STAYS THE SAME, AND PT ALREADY HAS A FOLLOW-UP APPT WITH DR. DEL ANGEL IN JANUARY.
--- NOTE | 2016-12-13 18:54 | NUR ---
PT HAS BEEN MORE PRESENT IN THE MILEU TALKING AND SOCIALIZING WITH OTHERS. PT STILL DISPLAYS A SLIGHTLY CONSTRICTED/ FLAT AFFECT. PT IS COMPLIANT WITH STAFF AND UNIT RULES AND DENIES ANY THOUGHTS OF SI WHEN ASKED BY STAFF.
--- NOTE | 2016-12-13 23:51 | CP SOUTH PROGRESS NOTE PSYCH ---
Psych (Inpt) Progress Note Progress Note Progress Note: SUBJECTIVE: Pt reported that she is doing ok with xanax taper, "I feel everett crappy but I guess ok." Pt tolerating split dosing of effexor. Pt states that, "I have been out of bed, talking more to the other pts...I feel like I am back to normal again." Denies SI/HI/AVH/SIB, eating and sleeping well. No abnormal movements other than mild tremor. OBJECTIVE: Per nursing, pt slept well overnight. Adherent with meds and staff instructions, in behavioral control. Endocrine saw pt today, continue PTU and propranolol as before, order TFT for Thu. MEDS: Current Medications Sig/Luann Start time Last Medication Dose Stop Time Status Admin Venlafaxine HCl 150 MG 1000,1700 12/14 1000 AC (Effexor Xr) Alprazolam 0.5 MG 1400 12/13 1400 AC 12/13 (Xanax) 12/14 1401 1314 Cyanocobalamin 1,000 MCG 0800 12/13 0800 AC 12/13 (Vitamin B12) 0842 Alprazolam 1 MG 0800,2200 12/12 2200 AC 12/13 (Xanax) 12/19 2159 2151 Aripiprazole 5 MG 2200 12/08 2200 AC 12/13 (Abilify) 2150 Gabapentin 300 MG 0800,1300,1700,2200 12/08 2200 AC 12/13 (Neurontin) 2151 Propranolol HCl 20 MG 0800,2200 12/08 2200 AC 12/13 (Inderal 20 MG 2150 Tablet) Trazodone HCl 150 MG AT BEDTIME 12/08 2200 AC 12/13 (Desyrel) 2150 Trazodone HCl 50 MG AT BEDTIME NEED.. 12/08 2000 AC (Desyrel) Aripiprazole 2 MG Q4P PRN 12/08 1945 AC (Abilify) Propylthiouracil 100 MG BID 12/07 1357 AC 12/13 (Propylthiouracil 2151 50MG Tab) Ondansetron HCl 4 MG TIDPRN PRN 12/07 1145 AC (Zofran) Acetaminophen 500 MG Q6P PRN 12/06 2045 AC 12/13 (Tylenol) 1852 Al Hydroxide/Mg 30 ML Q4-6 PRN PRN 12/06 2044 AC 12/07 Hydroxide 0718 (Maalox Plus) Vital Signs Date Time Temp Pulse Resp B/P B/P Pulse O2 O2 Flow FiO2 Mean Ox Delivery Rate 12/13 2149 99.3 66 97 112/66 12/13 2058 99.3 66 112/66 12/14 2055 99.3 66 112/66 / 1624 77 125/73 /08 1624 75 105/59 /08 1623 98.5 77 101/58 /08 1535 77 125/73 /08 1201 75 105/59 /08 0841 77 101/58 /08 0811 98.5 77 101/58 LABS: Laboratory Tests 12/12 612 Chemistry Total Bilirubin (0.2 - 1.3 mg/dL) 0.3 Direct Bilirubin (< 0.4 mg/dL) 0.2 AST (14 - 36 U/L) 16 ALT (9 - 52 U/L) 25 Alkaline Phosphatase (<127 U/L) 95 Total Protein (6.3 - 8.2 g/dL) 5.5 L Albumin (3.5 - 5.0 g/dL) 3.3 L Vitamin B12 (239 - 931 pg/mL) 355 Free T4 (0.64 - 1.79 ng/dL) 3.61 H Total T3 (0.97 - 1.69 ng/mL) 3.06 H Hematology CBC w Diff NO MAN DIFF REQ WBC (4.8 - 10.8 /CUMM) 3.4 L RBC (4.20 - 5.40 /CUMM) 4.01 L Hgb (12.0 - 16.0 G/DL) 11.3 L Hct (37 - 47 %) 34.6 L MCV (81.0 - 99.0 FL) 86.3 MCH (27.0 - 31.0 PG) 28.0 RDW (11.5 - 14.5 %) 13.6 Plt Count (130 - 400 /CUMM) 198 MPV (7.4 - 10.4 FL) 7.6 Gran % (42.2 - 75.2 %) 33.9 L Lymphocytes % (20.5 - 51.1 %) 49.2 Monocytes % (1.7 - 9.3 %) 9.6 H Eosinophils % (0 - 5 %) 7.3 H Basophils % (0.0 - 2.0 %) 0 L Absolute Granulocytes (1.4 - 6.5 /CUMM) 1.1 L Absolute Lymphocytes (1.2 - 3.4 /CUMM) 1.7 Absolute Monocytes (0.10 - 0.60 /CUMM) 0.3 Absolute Eosinophils (0.0 - 0.7 /CUMM) 0.2 Absolute Basophils (0.0 - 0.2 /CUMM) 0 PUBS MCHC (33.0 - 37.0 G/DL) 32.5 L MSE: GEN: Alert and oriented, calm and cooperative, fair eye contact, somewhat disheveled, NAD SPEECH: moderate rate, volume, fluent MOTOR: no tics, mild tremor, no stereotypy or abnormal movements MOOD: "doing ok" AFFECT: calm, congruent, mildly constricted, nonlabile, fairly well-related TP: logical, linear, goal-directed, brief TC: concrete, denies SI/HI/AVH,SIB, no apparent delusions, paranoia, grandiosity, obsessions, ruminations COG: no apparent deficits in memory, attention, concentration J/I: fair/fair A&P: 56 yo WF with Depression on xanax taper from longstanding use, with elevated TSH and Endocrine following, feeling improved overall, tolerating taper , mood stabilizing, and looking forward to dc. -cont meds above -maintain safety, vs tid, q15 min checks -TFT for Mon, followed by Endocrine -monitor CBC -cont plan/dispo as per primary team
[2016-12-14] VITALS (8 sets, daily range): BP systolic 96–126; BP diastolic 52–69
--- NOTE | 2016-12-14 06:06 | NUR ---
PT QUIET, ON THE PERIPHERY. PT SLEPT. PT TO DC ON THURSDAY.
--- NOTE | 2016-12-14 12:44 | NUR ---
PT IS STABLE WITH FULL RANGE OF AFFECT. PT HAS BEEN VISIBLE WITHIN THE COMMUNITY AND INTERACTING WITH PEERS/STAFF. PT IS APPROPRIATE TO THE UNIT, ENGAGING WITH STAFF/PEERS, AND ATTENDING GROUPS ALL AM. PT WAS TALKING ABOUT HER CLOSE RELATIONSHIP WITH HER SON AND HER STRAINED RELATIONSHIP WITH HER DAUGHTER AND HER INABILITY TO STOP SUPPORTING HER DESPITE HER DAUGHTER BEING 33 YEARS OLD. VS ARE STABLE AND DENIES ANY SI/HI TO THIS MHW.
--- NOTE | 2016-12-14 18:44 | NUR ---
PT HAS SHOWED STABLE AFFECT THAT IS SLIGHTLY FLAT AND CONSTRICTED AT TIMES. SHE HAS HAD AN INCREASED INTERACTION WITH STAFF AND PEERS TODAY. PT DENIES ANY THOUGHTS OF SI WHEN ASKED BY STAFF.
--- NOTE | 2016-12-14 20:32 | CP SOUTH PROGRESS NOTE PSYCH ---
Psych (Inpt) Progress Note Progress Note Progress Note: SUBJECTIVE: Pt reported a good family visit with son's family and 19 mo granddaughter, pt smiling and happy after visit. Pt stated that xanax taper is ok "I dont realy feel it" and feels ready for dc tomorrow. No s/e to meds, abnormal movements (other than mild tremor), SI/HI/AVH/SIB. Feels meds working well. Wrist feels ok. Eating and sleeping well. States she has an Endocrine appt on Jan 11 for f/u and surgical planning. OBJECTIVE: Per nursing, pt slept well overnight. Adherent with meds and staff instructions, in behavioral control. MEDS: Current Medications Sig/Luann Start time Last Medication Dose Stop Time Status Admin Acetaminophen 500 MG Q6P PRN 12/06 2044 AC 12/14 (Tylenol) 1536 Al Hydroxide/Mg 30 ML Q4-6 PRN PRN 12/06 2044 AC 12/14 Hydroxide 1101 (Maalox Plus) Alprazolam 1 MG 0800,12/12 2200 AC 12/14 (Xanax) 12/19 2159 0908 Aripiprazole 5 MG 12/08 2200 AC 12/13 (Abilify) 215 Aripiprazole 2 MG Q4P PRN 12/08 1945 AC (Abilify) Cyanocobalamin 1,000 MCG 0800 12/13 0800 AC 12/14 (Vitamin B12) 0909 Gabapentin 300 MG 0800,1300,1700,2200 12/08 2200 AC 12/14 (Neurontin) 1712 Ondansetron HCl 4 MG TIDPRN PRN 12/07 1145 AC (Zofran) Propranolol HCl 20 MG 0800,2200 12/08 2200 AC 12/14 (Inderal 20 MG 0909 Tablet) Propylthiouracil 100 MG BID 12/07 1357 AC 12/14 (Propylthiouracil 0908 50MG Tab) Trazodone HCl 150 MG AT BEDTIME 12/08 2200 AC 12/13 (Desyrel) 2150 Trazodone HCl 50 MG AT BEDTIME NEED.. 12/08 2000 AC (Desyrel) Venlafaxine HCl 150 MG 1000,1700 12/14 1000 AC 12/14 (Effexor Xr) 1712 Vital Signs Date Time Temp Pulse Resp B/P B/P Pulse O2 O2 Flow FiO2 Mean Ox Delivery Rate 12/14 1530 77 96/60 12/14 1518 77 96/60 12/14 1225 77 121/69 12/14 1211 77 121/69 12/14 0909 79 126/69 12/14 0833 79 126/69 12/14 0748 97.8 79 126/69 12/13 2150 99.3 66 97 112/66 12/13 2058 99.3 66 112/66 12/14 2055 99.3 66 11266 LABS: TFT for tomorrow am MSE: GEN: Alert and oriented, calm and cooperative, good,eye contact, smiling, clean cothes, NAD SPEECH: moderate rate, volume, fluent, more conversational today MOTOR: no tics, mild tremor, no stereotypy or abnormal movements MOOD: "allright" AFFECT: calm, congruent, good range with smiles, nonlabile, fairly well-related TP: logical, linear, goal-directed TC: concrete, denies SI/HI/AVH,SIB, no apparent delusions, paranoia, grandiosity, obsessions, ruminations COG: no apparent deficits in memory, attention, concentration J/I: fair/fair A&P: 56 yo WF with Depression on xanax taper from longstanding use, with elevated TSH and Endocrine following, feeling improved overall, tolerating taper , mood stabilizing, and looking forward to dc. -cont meds above -maintain safety, vs tid, q15 min checks -TFT for Thu, followed by Endocrine with f/u appt on Jan 11 -monitor CBC -cont plan/dispo as per primary team
--- NOTE | 2016-12-14 23:30 | NUR ---
QUIET EVENING,OBSERVED MINIMALLY INTERACTING WITH PEERS. SHARED THAT SHE WAS GLAD TO GET A VISIT FROM HER GRAND DAUGHTER TODAY. MED COMPLIANT WITH NO COMPLAINTS OFFERED
--- NOTE | 2016-12-15 05:03 | NUR ---
SLEPT WELL, NO COMPAINTS OFFERED.
[2016-12-15 08:14] VITALS: BP 119/71
[2016-12-15 08:16] VITALS: BP 119/71
--- NOTE | 2016-12-15 10:22 | SOCIAL WORKER PROG NOTE PSYCH ---
Social Work Progress Note Progress Note Got Beena appts. with Thom GRIFFITH. Intake is scheduled with Alexus (clinician) for 12/22 at 10:45am and an appt. with Dr. Elkins for 12/29 at 4pm. Informed Beena that he appts. are all set. She said she had a good weekend. Mood is good. No SI. Spent time reading over the weekend and visiting with family. She was surprised to learn that her daughter marie is again and due in June. She is excited about the news of another grandbaby. Talked about discharge for 1pm today.
--- NOTE | 2016-12-15 12:15 | NUR ---
WILL BE DISCHARGED TODAY TO [facility] WITH F/U AT [facility]. BROTHER HAS INDICATED HE CAN MONITOR MEDICATION USE. MOOD IS STABLE, FULL RANGE OF AFFECT. DENIED THOUGHTS OF SELF HARM WHEN ASKED
[2016-12-15] MEDS ORDERED: VITAMIN B-121000 MC3 PO (12:38)
[2016-12-15] MEDS ORDERED: EFFEXOR XR75 M1 PO (12:38)
[2016-12-15] MEDS ORDERED: PROPYLTHIOURACI50 M1 PO (12:38)
[2016-12-15] MEDS ORDERED: XANAX0.25 M1 PO (12:38)
[2016-12-15] MEDS ORDERED: GABAPENTIN300 M2 PO (12:38)
[2016-12-15] MEDS ORDERED: TRAZODONE HCL50 M1 PO (12:38)
[2016-12-15] MEDS ORDERED: PROPRANOLOL HCL20 M1 PO (12:38)
[2016-12-15] MEDS ORDERED: ABILIFY5 M1 PO (12:38)
--- NOTE | 2016-12-15 12:44 | Patient Discharge Instructions ---
Psych Discharge Inst General Discharge Information Reason for Admission: Worsening mood, increased anxiety, suicidal ideation to overdose on store-bought medication. Psy Discharge Primary Diag+ Major depr rec severe Psy Discharge Secondary Diag+ Unspecified anxiety d/o Cannabis use disorder Graves disease Anemia Low WBC Summary Tests/Major Procedures Random glucose 124 Total protein 5.5 low Albumin 3.3 low TSH <0.015 low Total T3 2.81 high Free T4 3.06 high Bun/Creatinine ratio 27.5 high Urine drug screen positive for amphetamine, benzodiazpeine, methadone and cannabis WBC 3.4 low RBC 4.01 low HgB 11.3 low HCT 34.6 low ECG showed early precordial R/S ransition, otherwise normal ECG. Studies Pending at HI: None. Patient Instructions Contact Information Your Psychiatrist on [facility] was MAYDA BRADFORD MD * If you are experiencing an emergency related to this hospitalization, please call [phone] to contact the treating psychiatrist or the psychiatrist-on- call. * To Request a copy of your medical records, please contact the Medical Records Department at [phone]. * To request results of studies pending at the time of discharge, please call [phone]. * Continue your Medications until directed to stop by your Healthcare provider. General Medication Information Please continue to take your new medications and your continued home medications , unless otherwise indicated on your discharge medication list, or unless directed by your MD or MANAGER ENT to stop them. STOP ADDERALL. Xanax should be tapered to off by MD/MANAGER ENT. Special Instructions: Please see PCP for abnormal labs listed above. Please follow up with Dr. Dalton in January 2017. Stay away from drugs and alcohol. Stop Adderall. Xanax should be tapered to off by MD/MANAGER ENT. Advance Directives Does the Patient have Medical Advance Directives No/Refused further info Does Pt have Psychiatric Advance Directives? No/Refused further info Does Patient have a Designated Surrogate Decision Maker: No Information About Psychiatric Advance Directives Provided? Refused Discharge Plan Post Hospital Treatment Plan: Thom Dalton. [facility].
[2016-12-15 12:45] VITALS: BP 110/70
[2016-12-15 12:47] VITALS: BP 110/70
--- NOTE | 2016-12-15 15:58 | CP SOUTH PROGRESS NOTE PSYCH ---
Psych (Inpt) Progress Note Progress Note Include the following elements, when applicable: Involvement in the active treatment of the patient with behavioral observations of the patient and the patient's response to the treatment. Review of the ongoing treatment process in the context of the treatment plan. Indication of how multi-disciplinary staff members are carrying out the treatment plan. Plans for future interventions and recommendations for revision of the treatment plan. Liaison with other physicians/providers. Progress Note: Medication list reviewed. Dr. Mc's notes reviewed. Case and treatment plan discussed in team meeting. Staff reports that the patient presented here with suicidal ideation. Patient will be living with her brother, who will be monitoring patient's medications. Patient is being referred to [facility]. Described as social in the milieu. Reads a book in her room. Said her mood is good. Feels ready to go. Family visited. Patient learned she will be a grandmother for the second time. Patient seen at 12:55 PM. States "I'm really good." Has no problems or questions. Plans to live with brother. Mother lives downstairs. Reports mood is very content. Patient thinks sad mood is 0/10 and anxiety is maybe 2/10. Denies feeling hopeless, helpless, worthless or guilty. Denies active and passive suicidal ideation. Denies homicidal ideation. Denies auditory and visual hallucinations. Denies paranoid ideation and magical smiley. Reports sleep is great. Reports appetite is too much. Reports energy is normal. Tolerating medications well, without complaint. Feels ready and safe for discharge. IMPRESSION: Condition improved. Okay for discharge today to live with brother. Patient will have follow-up at [facility] and at [facility].
--- NOTE | 2016-12-15 17:08 | DISCHARGE SUMMARY REPORT-PSYCH ---
Visit Information Visit Dates/Diagnosis' Admission Date: 12/06/16 Discharge Date: 12/15/16 Reason for Admission: Worsening mood, increased anxiety, suicidal ideation to overdose on store-bought medication. Psy Discharge Primary Diag: Major depr rec severe Psy Discharge Secondary Diag: Unspecified anxiety d/o Cannabis use disorder Graves disease Anemia Low WBC Hospital Course Significant Lab Findings: Random glucose 124 Total protein 5.5 low Albumin 3.3 low TSH <0.015 low Total T3 2.81 high Free T4 3.06 high Bun/Creatinine ratio 27.5 high Urine drug screen positive for amphetamine, benzodiazpeine, methadone and cannabis WBC 3.4 low RBC 4.01 low HgB 11.3 low HCT 34.6 low ECG showed early precordial R/S ransition, otherwise normal ECG Course Complications: None. Consultations: Patient was seen by Dr. Tamika Gregorio for admission H&P. Patient was seen by Dr. Dalton for management of Graves disease. Please refer to their notes for additional information. Allergies: Coded Allergies: No Known Allergies (12/06/16) Hospital Course/TX Response: The patient was monitored on the unit for safety and mood disorder. She participated in multi-modal treatments on the unit. Adderall was discontinued. Xanax was tapered down to 1 mg b.i.d. and should be tapered to off on an outpatient basis. Effexor XR was increased to 150 mg b.i.d. Abilify dose was increased to 5 mg qhs. Neurontin 300 mg 4x/day was continued. Trazodone was continued at 150 mg qhs. Mood and affect have improved. Suicidal ideation has remitted. Progress note from date of discharge, 12/15/16: Medication list reviewed. Dr. Mc's notes reviewed. Case and treatment plan discussed in team meeting. Staff reports that the patient presented here with suicidal ideation. Patient will be living with her brother, who will be monitoring patient's medications. [facility]. Described as social in the milieu. Reads a book in her room. Said her mood is good. Feels ready to go. Family visited. Patient learned she will be a grandmother for the second time. Patient seen at 12:55 PM. States "I'm really good." Has no problems or questions. Plans to live with brother. Mother lives downstairs. Reports mood is very content. Patient thinks sad mood is 0/10 and anxiety is maybe 2/10. Denies feeling hopeless, helpless, worthless or guilty. Denies active and passive suicidal ideation. Denies homicidal ideation. Denies auditory and visual hallucinations. Denies paranoid ideation and magical smiley. Reports sleep is great. Reports appetite is too much. Reports energy is normal. Tolerating medications well, without complaint. Feels ready and safe for discharge. IMPRESSION: Condition improved. Okay for discharge today to live with brother. Patient will have follow-up at [facility] and at [facility]PS. Discharge HBIPS - Tobacco Use Treatment Offered Post DC Medications Offered: Not Applicable Post DC Tobacco Treatment Plan: Not Applicable - EtOH/Drug Use D/O Treatment Offered Post DC Medications Offered: Med Not Indicated for D/O Post DC EtOH/SubAbuse [place] Plan: Other SubAbuse/Dual Pgm ([facility]) Program Appt Date: 12/19/16 Program Appt Time: 0900 Metabolic Screening - Screen if on a Neuroleptic Medication - Metabolic screening should include: - Blood Pressure, BMI, Glucose or Hgb A1c, & a - Lipid profile from within the past 365 days. Metabolic Screening () Not Applicable, patient not on a neuroleptic. OR () Patient on a neuroleptic(s) . Enter below results for Glucose or Hemoglobin A1C, and lipid panel if obtained during the last 365 days. BMI: 20.600 Blood Pressure: 110/70 Laboratory Results (If applicable): Lab Cholesterol 140 MG/DL 12/07/16 0450 Cholesterol/HDL Ratio 3 % 12/07/16 0450 HDL Cholesterol 52 mg/dL 12/07/16 0450 Hemoglobin A1c 5.3 % 12/07/16 0450 LDL Cholesterol, Calc 73 mg/dL 12/07/16 0450 Triglycerides 75 mg/dL 12/07/16 0450 Discharge Instructions General Discharge Information Discharge Medications: Discharge Medications- (Dose, route, freq, indication): START taking these NEW Home Medications: Propranolol HCl Dose: ORAL, 0800,2200 for Qty: 28 Sent to (Propranolol HCl) 20 20 Milligram symptoms of Graves Refills: 0 Pharm 1 MG TABLET disease Gabapentin Dose: ORAL, Qty: 56 Sent to (Gabapentin) 300 MG 300 Milligram 0800,1300,1700,2200 for Refills: 0 Pharm 1 CAPSULE anxiety Trazodone HCl Dose: ORAL, AT BEDTIME for Qty: 42 Sent to (Trazodone HCl) 50 150 Milligram insomnia Refills: 0 Pharm 1 MG TABLET Venlafaxine HCl Dose: ORAL, 1000,1700 for Qty: 28 Sent to (Effexor XR) 75 MG 150 Milligram depression/anxiety Refills: 0 Pharm 1 CAP.ER.24H Aripiprazole Dose: ORAL, 2200 for augment Qty: 14 Sent to (Abilify) 5 MG 5 Milligram antidepressant Refills: 0 Pharm 1 TABLET Alprazolam (Xanax) Dose: ORAL, 0800,2200 for Qty: 28 Called in to 1 MG TABLET 1 Milligram anxiety Refills: 0 Pharm 1 Propylthiouracil Dose: ORAL, TWICE DAILY for Qty: 28 Sent to (Propylthiouracil) 100 Milligram Graves disease Refills: 0 Pharm 1 50 MG TABLET Cyanocobalamin Dose: ORAL, DAILY @8 AM for Qty: 14 Sent to (Vitamin B-12) 1,000 1,000 B-12 supplement Refills: 0 Pharm 1 MCG TABLET Microgram STOP taking these DISCONTINUED Home Medications: Venlafaxine HCl (Effexor XR) Dose: ORAL, DAILY @8 AM for 75 MG CAP.ER.24H 225 Milligram anti-depressant Reason Stopped: Changed Dose Dextroamphetamine/Amphetamine Dose: ORAL, THREE TIMES DAILY for ADHD (Dextroamp-Amphetamin 30 MG 1 Tablet Reason Stopped: contra-ind Tab) 30 MG TABLET Alprazolam (Alprazolam) 2 MG Dose: ORAL, QIDPRN for ANXIETY TABLET 1 Tablet Reason Stopped: Changed Dose Propylthiouracil Dose: , for THYROID HEALTH (Propylthiouracil) 50 MG Reason Stopped: Changed Dose TABLET Budesonide/Formoterol Fumarate Dose: Inhale through mouth, TWICE (Symbicort 160-4.5 Mcg 2 Puff DAILY for ASTHMA Inhaler) 160 MCG-4.5 MCG/ Reason Stopped: no used ACTUATION HFA.AER.AD 1: [facility] [id number], [address] [place], [place] [id number] Multiple Neuroleptics: ([x]) Not Applicable OR Document below three failed attempts at monotherapy, or a plan to taper to monotherapy, or augmentation of Clozapine. () Patient's Diet: Regular. Patient's Activity: No restrictions. DC Disposition: Will be living with brother. Mother lives downstairs. Recommendations: Please see PCP for abnormal labs listed above. Please follow up with Dr. Dalton in January 2017. Stay away from drugs and alcohol. Stop Adderall. 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 Thom OPS: Intake is scheduled with Alexus (clinician) for 12/22 at 10:45am and an appt. with Dr. Elkins for 12/29 at 4pm. Copies To: DUNIA ZHANG,JOAN
== END 2016-12-15 13:22 | DRG 885 ==
LOC: ERH 12:28 → ERHI 19:31 → ERH 19:31 → ERHI 20:04 → CP SOUTH 20:04 → CMPBEDREQ 20:17 → EDBEDREQ 20:31 → ENTRNSPT 20:35 → CMPTRNSPT 20:40 → CP SOUTH 20:51
PROVIDERS: Emergency Medicine; Internal Medicine; Internal Medicine Endocrinology, Diabetes & Metabolism; Psychiatry & Neurology Psychiatry; ADMIT Psychiatry & Neurology Psychiatry
DX: F33.2 Major depressive disorder, recurrent severe without psychotic features (principal); E05.00 Thyrotoxicosis with diffuse goiter without thyrotoxic crisis or storm; F41.9 Anxiety disorder, unspecified; F12.90 Cannabis use, unspecified, uncomplicated; D64.9 Anemia, unspecified
CPT/HCPCS: 36415; 80307; 86803; 87389; 93005; 93010; G0463; G0480; J3101; J3490

== ENCOUNTER 2017-12-26 09:36 | Inpatient (IN) | payer OTHER, MEDICARE ==
[~2017-12-26] VITALS: Ht 165.1 cm; Wt 62.8 kg
[~2017-12-26 09:36] MED LIST changes: +ABILIFY5 M1 PO; +AMBIEN10 M1 PO; +AMBIEN5 M1 PO; +BUSPIRONE HCL10 M1 PO; +CALCIUM600 M3 PO; +DEXTROAMP-AMPHE30 MG PO; +KLONOPIN1 M1 PO; +OXYCODONE HCL5 M1 PO; +PROPYLTHIOURACI50 M1; +PROPYLTHIOURACI50 M1 PO; +PROTONIX40 M3 PO; +SEROQUEL50 M1 PO; +SSKI1 GM/1 ML; +SYMBICORT 16010.2 GM INH; +SYNTHROID100 MCG PO; +TRAZODONE HCL50 M1 PO; +VITAMIN B-121000 MC3 PO; +VITAMIN D31000 UNI1 PO; +XANAX0.25 M1 PO
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
[2017-12-26 10:13] LABS: ABSOLUTE BASOPHIL COUNT 0 /CUMM (0.0-0.2); ABSOLUTE EOSINOPHIL COUNT 0.1 /CUMM (0.0-0.7); ABSOLUTE GRANULOCYTE CT 3.7 /CUMM (1.4-6.5); ABSOLUTE LYMPH COUNT 0.9 /CUMM (1.2-3.4); ABSOLUTE MONOCYTE COUNT 0.3 /CUMM (0.10-0.60); BASOPHIL % 0.5 % (0.0-2.0); EOSINOPHIL % 2.6 % (0-5); GRANULOCYTE % 73.3 % (42.2-75.2); HEMATOCRIT 32.6 % (37-47); MEAN CORPUSCULAR HGB 28.4 PG (27.0-31.0); MEAN CORPUSCULAR VOLUME 86.1 FL (81.0-99.0); MEAN PLATELET VOLUME 6.2 FL (7.4-10.4); PLATELET COUNT 391 /CUMM (130-400); RBC DISTRIBUTION WIDTH 16.1 % (11.5-14.5); RED BLOOD CELL CT 3.79 /CUMM (4.20-5.40)
[2017-12-26] MEDS ORDERED: ALPRAZOLAM1 M2 PO (11:06)
[2017-12-26] MEDS ORDERED: SEROQUEL200 M1 PO (11:07)
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
[2017-12-26 16:46] VITALS: BP 113/65
--- NOTE | 2017-12-26 16:57 | Cons- Medical ---
General Information and HPI Consulting Request Date of Consult: 12/26/17 Requested By: Baylee Maldonado MD Reason for Consult: Medical h & p Source of Information: patient, old records History of Present Illness: 57-year-old female past medical history of GERD and Graves' disease status post thyroidectomy who is here with depressive symptoms and suicidal ideation. Patient says that she tried to overdose and started using illicit drugs intranasally with an attempt to kill herself. She denies nausea vomiting diarrhea, denies bright red blood per rectum, denies hematemesis melena has no other complaints. Allergies/Medications Allergies: Coded Allergies: No Known Allergies (12/06/16) Home Med List: Alprazolam 1 MG TABLET 1 TAB PO BID ANXIETY (Reported) Levothyroxine Sodium (Synthroid) 100 MCG TABLET 1 TAB PO DAILY supplement Pantoprazole Sodium (Protonix) 40 MG TABLET.DR 1 TAB PO DAILY GERD (Reported) Quetiapine Fumarate (Seroquel) 200 MG TABLET 1 TAB PO QHS MENTAL HEALTH/SLEEP (Reported) Venlafaxine HCl (Effexor XR) 150 MG CAP.ER.24H 2 CAP PO QAM depression Zolpidem Tartrate (Ambien) 5 MG TABLET 1 TAB PO QPMP PRN SLEEP (Reported) Current Medications: Current Medications Sig/Luann Start time Last Medication Dose Route Stop Time Status Admin Hydroxyzine HCl 50 MG Q6H 12/26 2000 AC PO Hydroxyzine HCl 0 .STK-MED ONE 12/26 1409 DC PO Hydroxyzine HCl 50 MG Q6 12/26 1401 DC 12/26 PO 1410 Levothyroxine Sodium 0.1 MG DAILY AC 12/26 0943 AC 12/26 PO 1022 Review of Systems Review of Systems Constitutional: Denies: no symptoms, chills, diaphoresis, fever. Cardiovascular: Denies: no symptoms, chest pain, edema, orthopena. Respiratory: Denies: no symptoms, cough, hemoptysis. GI: Denies: no symptoms, abdominal pain, bloating, constipation. Genitourinary: Denies: no symptoms, discharge, dysuria. All Other Systems: Reviewed and Negative Past History Travel History Traveled to [place] past 21 day No Medical History Neurological: NONE EENT: NONE Cardiovascular: NONE Respiratory: NONE Gastrointestinal: HEARTBURN Hepatic: NONE Renal: NONE Musculoskeletal: falls, fracture (of L wrist one month ago) Psychiatric: anxiety, bipolar disease, depression, substance abuse (abusing alcohol and cocaine ), "ADHD" vs. 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 spouse Services at Home: None Primary Language: Arabic Smoking Status: Never Smoked ETOH Use: occasional use Illicit Drug Use: heroin Living Will? unknown Other Social History: She is adopted and family history hence is noncontributory Functional Ability ADLs Independent: dressing, eating, toileting, bathing. Ambulation: independent IADLs Independent: shopping, housework, finances, food prep, telephone, transportation , medication admin. Exam & Diagnostic Data Last 24 Hrs of Vital Signs/I&O Vital Signs Date Time Temp Pulse Resp B/P B/P Pulse O2 O2 Flow FiO2 Mean Ox Delivery Rate 12/26 1646 97.8 82 113/65 12/26 1427 98.7 84 18 118/85 100 Room Air 12/26 1249 98.8 83 18 118/70 100 12/26 1024 Room Air 12/26 0957 98.5 72 16 106/70 97 Room Air Intake & Output 12/26 1600 12/26 0800 12/26 0000 Intake Total 200 Output Total 250 Balance -50 Intake, Oral 200 Output, Urine 250 Physical Exam General Appearance: well developed/nourished, no apparent distress, alert, awake Head: atraumatic, normal appearance Eyes: Bilateral: normal appearance, PERRL, EOMI. Ears, Nose, Throat: normal pharynx, normal ENT inspection Neck: normal inspection, supple Respiratory: normal breath sounds, chest non-tender Cardiovascular: regular rate/rhythm Gastrointestinal: normal bowel sounds, soft, non-tender Extremities: normal inspection, normal capillary refill, normal range of motion Neurologic/Psych: no motor/sensory deficits, awake, alert, oriented x 3, normal gait Other Physical Findings: Is awake alert and oriented, her gait is normal, cranial nerves III-12 are intact, gross motor and sensory is intact. Reflexes are 2+ and symmetric. Last 24 Hrs of Labs/Andry: Laboratory Tests 12/26/17 1004: Anion Gap 8, Estimated GFR > 60, BUN/Creatinine Ratio 13.3, Glucose 122 H, Calcium 9.0, Total Bilirubin 0.3, AST 17, ALT 19, Alkaline Phosphatase 73, Troponin I < 0.01, Total Protein 6.7, Albumin 3.9, Globulin 2.8, Albumin/ Globulin Ratio 1.4, TSH 7.260 H, Free T4 0.76, CBC w Diff NO MAN DIFF REQ, RBC 3.79 L, MCV 86.1, MCH 28.4, MCHC 33.0, RDW 16.1 H, MPV 6.2 L, Gran % 73.3, Lymphocytes % 17.9 L, Monocytes % 5.7, Eosinophils % 2.6, Basophils % 0.5, Absolute Granulocytes 3.7, Absolute Lymphocytes 0.9 L, Absolute Monocytes 0.3, Absolute Eosinophils 0.1, Absolute Basophils 0, Serum Alcohol < 10.0 12/26/17 1001: Urine Opiates Screen 515, Methadone Screen 50, Barbiturate Screen < 60, Ur Phencyclidine Scrn < 6.00, Amphetamines Screen < 100, U Benzodiazepines Scrn > 800 H, Urine Cocaine Screen < 50, Urine Cannabis Screen > 80.00 H, Urinalysis LIGHT H, Urine Color YEL, Urine Clarity CLEAR, Urine pH 7.5, Ur Specific Ramsay 1.020, Urine Protein NEG, Urine Ketones NEG, Urine Nitrite NEG, Urine Bilirubin NEG, Urine Urobilinogen 0.2, Ur Leukocyte Esterase SMALL H, Ur Microscopic SEDIMENT EXAMINED, Urine RBC RARE, Urine WBC RARE, Ur Epithelial Cells MANY H, Urine Bacteria MANY H, Urine Hemoglobin NEG, Urine Glucose NEG Assessment/Plan Assessment/Plan This iss a 57-year-old female with a past medical history of Graves' disease status post thyroidectomy on levothyroxin replacement therapy and GERD on a PPI. She is here with depressive complaints and suicidal ideation. Treatment as per psychiatry. Continue her levothyroxin, continue her PPI and outpatient follow- up on discharge. Problem List: 1. Depression 2. Graves disease Consult Acknowledgment - Thank you for your consult request.
[2017-12-26 19:09] VITALS: BP 118/70
[2017-12-26 19:47] VITALS: BP 119/78
[2017-12-26 20:17] VITALS: BP 119/78
--- NOTE | 2017-12-26 21:47 | RADIOLOGY REPORT ---
EXAMINATION: XR CHEST CLINICAL INFORMATION: Cough. Chest breath. COMPARISON: None TECHNIQUE: 2 views of the chest were obtained. FINDINGS: No significant abnormality is noted involving the heart, lungs, mediastinum, bony thorax or soft tissues. Surgical clips in the upper abdomen. IMPRESSION: Unremarkable examination.
[2017-12-27] VITALS (8 sets, daily range): BP systolic 107–121; BP diastolic 70–96
--- NOTE | 2017-12-27 11:49 | CPS PROVIDER INIT ASMT PSYCH ---
Psychiatric Admission Pointing Machine Operator's Note Reviewed: Yes Patient Seen and Examined: Yes Identifying Information: [id number] Chief Complaint: "I just feels so guilty" Reaction to Hospitalization: no change History of Present Illness Onset of Illness: decades ago Circumstances Leading to Admission: sons conviction Problem(s) Justifying Need for Admission: SI and depression Other HPI: Pt notes that acute stressor was the conviction of her son for 5 years in [facility]. She feels that had she been a better mother, this would not have happened. She recalled that she never diciplined her son or said "no" after her . Now +SI to overdose on heroin. Past Psychiatric History Past Diagnosis(es)- if any: Major Depressive Disorder Unspecified Anxiety Past Precipitating Factors- if any: psychosocial stressors - Include inpatient and outpatient treatment Treatment History: Has Psychiatrist as outpatient History of Suicide Attempts or Gestures +SI at past Substance Abuse History: Tobacco: former smoker, quit years ago Alcohol: denies Illicits: heroin more recently, mj at least monthly Allergies: Coded Allergies: No Known Allergies (12/06/16) Home Med List: see H&P - Include any medical condition(s) that may - impact the patient's recovery/remission Past Medical History: see H&P Past History Medical History Neurological: NONE EENT: NONE Cardiovascular: NONE Respiratory: "COLD SYMPTOMS" "CHEST HURTS" UPON INSPIRATION PRODUCTIVE COUGH WITH YELLOW SPUTUM Gastrointestinal: HEARTBURN Hepatic: NONE Renal: NONE Musculoskeletal: FRACTURE HX. 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 History of MRSA: No History of VRE: No History of CDIFF: No Isolation History: Standard Surgical History Surgical History: cholecystectomy Psychiatric Family/Social Hx Family History Psychiatric Illness: pt adopted but told that mother was in "mental insitutions" Substance Use: adopted Suicides: adopted Social History Living Situation: has home Significant Relationships (family/friends): family Education: HS grad Vocation/Occupation: on disability Legal: no current Health[facility] Behaviors Screening Tobacco Screening Tobacco Use from ED Docu: Current Not Daily (pt stated not smoked in years) - If tobacco counseling indicated - the following topics are required. - #1 Recognizing dangerous situations. - #2 Coping Skills. - #3 Basic information about quitting. Status of Tobacco Cessation Counseling: #1, #2 AND #3 Completed Cessation Med Status Not Applicable (stated not needed, not smoking) Alcohol Screening - ETOH screen POS if BAL >=80 or Audit-C>= M4/F3 Audit-C Score from Diag Assess: 0 Blood Alcohol Level: Laboratory Tests 12/26 1004 Toxicology Serum Alcohol (<10 MG/DL) < 10.0 Alcohol Use Screening Results: Neg per Audit C &/or BAL - If ETOH counseling indicated - the following topics are required. - #1 Express concern about the patient's - drinking at unhealthy levels, include informing - of national norms for moderate drinking: - men <= 14 drinks/week, max 4 drinks/occasion - women <= 7 drinks/week, max 3 drinks/occasion - #2 Providing feedback, including linking alcohol to - negative physical effects (liver injury, hypertension) - negative emotional effects (relationship problems and - depression) - negative occupational consequences (reduced work - performance) - #3 Advising the patient to abstain from alcohol or - to drink below national norms for moderate drinking - (as listed above). Status of ETOH Use Counseling: N/A B/C NO ETOH Use Metabolic Screening - Screen if on a Neuroleptic Medication - Metabolic screening should include: - Blood Pressure, BMI, Glucose or Hgb A1c, & a - Lipid profile from within the past 365 days. Metabolic Screening BMI: 23.000 Blood Pressure: 107/80 [facility] (If applicable): Exam and Plan Mental Status Examination Ambulation Status: walking freely Appearance: older than stated age Attitude towards examiner: cooperative Psychomotor activity: slight agitation Behavior: defensive but cooperative Quality of speech: nl r/r/s/v Affect: irritable, flat, anxious, non-labile, appropriate, congruent Mood: "not good at all" Suicidal Ideation: denied, recent +SI with plan Homicidal Ideation: denied Hallucinations: denied Paranoid/Delusional Material: denied Difficulties with thought organization: none noted Insight: poor Judgment: poor Orientation: x4 Cognition: grossly intact Memory Function: grossly intact Estimate of intellectual functioning: average Assets/Strengths Patient Identified Assets/Strengths: able to communicate Impression/Plan Impression and Plan: Pt with MDD and anxiety with SI in the setting of excessive guilt around son, substance use, and medication noncompliance. - Include all active medical diagnosis that require tx DSM 5 Diagnosis(es): Major Depressive Disorder Unspecified anxiety disorder Nicotine dependence, in remission Cannibus use - Initial Tx Plan for Active Psych & Medical Conditions Treatment Plan: - Restart effexor XR 37.5mg - Added mirtazapine 7.5mg for mood and sleep - Change ativan to klonopin 0.5mg in the morning and 1mg at bedtime, less than equivalent dosing of xanax with plan to decrease to 0.5mg BID - Monitoring for wd as likely overuse of xanax - Need collateral - Encourage intergration into the milieu - Factors that would help patient function - in a less restrictive setting. Factors: medication compliance
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
[2017-12-28] VITALS (9 sets, daily range): BP systolic 110–114; BP diastolic 61–78
--- NOTE | 2017-12-28 14:44 | SOCIAL WORKER PROG NOTE PSYCH ---
Social Work Progress Note Progress Note Dr. Nunez and this chief underwriter met with the patient. She expressed eagerness to discharge and stated that she had identified some treatment programs that she could go to. Patient stated that she stopped taking her medications due to a woman driving off with them locked in her trunk. She stated that she had stored them in the trunk due to not trusting the people that she was around. She stated that she spoke with someone in interest of obtaining drugs that she could use to overdose. Patient denied any prior suicide attempts. She stated that she currently lives with her friend and the friend's son in [place]. Patient denied any current substance use. She reported that a physician had previously "gotten me addicted to Percocet" which led to her being prescribed Methadone. She reports currently attending NA meetings due to her prior Percocet addiction. Patient stated that she receives social security as well as " benefits." She stated that she has 2 children, 2 brothers, 2 sisters. Both her parents are alive. Patient stated that her son is in long-term which contributed to her current hospital admission. Patient reported her mood as "ok" and rated her anxiety at a 5/10. She attributed her anxiety as due to meeting with "new people" (Dr. Nunez and this chief underwriter). She denied SI/HI/hallucinations. She refused to schedule a family meeting.
--- NOTE | 2017-12-28 14:58 | CP SOUTH PROGRESS NOTE PSYCH ---
Psych (Inpt) Progress Note Progress Note Include the following elements, when applicable: Involvement in the active treatment of the patient with behavioral observations of the patient and the patient's response to the treatment. Review of the ongoing treatment process in the context of the treatment plan. Indication of how multi-disciplinary staff members are carrying out the treatment plan. Plans for future interventions and recommendations for revision of the treatment plan. Liaison with other physicians/providers. Progress Note: Dr. Maldonado's note reviewed. Case and treatment plan discussed in team meeting. Staff reports that the patient is denying SI. Said she can stay with a friend. Would like to discharge DEYANIRA. Said she is not sleeping but RN reported that she slept. Patient seen at 11:30 a.m. She is a 57 yo WWF admitted on 12/26/17. Urine drug screen 12/26/17 was postive for MJ and benzos. "I just feel on the deep end. My son went to alf." States she is really close to her son and panicked. She didn't get to see him at court or get to say good bye. She felt that she could not have lived without him. Claims she missed 2 days' of medications because she locked them in a woman's car trunk. Missed 2 days of thyroid medication and Xanax. Had SI on . Son was sent to detention on Thursday. She may visit him in detention. She has a hx of OD with Benadyrl in 2007. Not in outpatient tx. Lives with friend and friend's son in [place]. in 2004 from esophageal cancer and patient lives on 's benefits and social security disability. Affect is calm and euthymic. Mood: "it's okay." Feels a little anxious at ~5/ 10. Sad 3/10. Denies feeling hopeless, helpless, worthless or guilty. Denies SI. Last SI was . Gives a safety promise. Denies HI, AH, VH, PI and magical smiley. Ox3. Sleep: "could sleep better." Appetite: "always up and down." Energy: "I'm a little excited right now. Maybe my energy's a little up there." Tolerating medications well, without complaint. Denies guns. Denies criminal hx. IMPRESSION: Slow progress. Continue present treatment plan. Patient is eager for discharge. Anticipate likely discharge tomorrow with an IOP referral and return to home.
[2017-12-29 07:38] VITALS: BP 105/79
[2017-12-29 07:39] VITALS: BP 105/79
[2017-12-29 08:03] VITALS: BP 105/79
[2017-12-29 12:03] VITALS: BP 110/80
[2017-12-29] MEDS ORDERED: KLONOPIN0.5 M1 PO (12:16)
[2017-12-29] MEDS ORDERED: SYNTHROID100 MCG PO (12:16)
[2017-12-29] MEDS ORDERED: EFFEXOR XR37.5 M1 PO (12:16)
[2017-12-29] MEDS ORDERED: MIRTAZAPINE7.5 M1 PO (12:16)
[2017-12-29] MEDS ORDERED: HYDROXYZINE HCL50 M1 PO (12:16)
[2017-12-29] MEDS ORDERED: KLONOPIN1 M1 PO (12:16)
[2017-12-29] MEDS ORDERED: OMEPRAZOLE20 M2 PO (12:16)
[2017-12-29] MEDS ORDERED: GABAPENTIN300 M2 PO (12:16)
--- NOTE | 2017-12-29 12:24 | Patient Discharge Instructions ---
Psych Discharge Inst General Discharge Information Reason for Admission: Suicidal ideation and depression. Psy Discharge Primary Diag+ Major depression rec sev Psy Discharge Secondary Diag+ Unspecified anxiety d/o Cannabis use d/o R/o benzodiazepine use do Hx thyroidectomy for Grvs Heartburn Anemia Hyperlipidemia Summary Tests/Major Procedures Lab ALT 19 U/L 12/26/17 1004 AST 17 U/L 12/26/17 1004 BUN 8 mg/dL 12/26/17 1004 Carbon Dioxide 27 mmol/L 12/26/17 1004 Chloride 106 mmol/L 12/26/17 1004 Cholesterol 284 MG/DL H 12/28/17 0635 Creatinine 0.6 mg/dL 12/26/17 1004 Estimated GFR > 60 ml/min 12/26/17 1004 Ferritin 7.0 ng/mL L 12/28/17 0635 Free T4 0.76 ng/dL 12/26/17 1004 Glucose 122 mg/dL H 12/26/17 1004 HDL Cholesterol 92 mg/dL H 12/28/17 0635 Hemoglobin A1c 5.7 % 12/28/17 0635 Iron 44 ug/dL 12/28/17 0635 LDL Cholesterol, Calc 177 mg/dL H 12/28/17 0635 Potassium 4.5 mmol/L 12/26/17 1004 Sodium 141 mmol/L 12/26/17 1004 TIBC 486 ug/dL 12/28/17 0635 TSH 7.260 uIU/mL H 12/26/17 1004 Triglycerides 78 mg/dL 12/28/17 0635 Absolute Lymphocytes 0.9 /CUMM L 12/26/17 1004 Hct 32.6 % L 12/26/17 1004 Hgb 10.8 G/DL L 12/26/17 1004 Lymphocytes % 17.9 % L 12/26/17 1004 MPV 6.2 FL L 12/26/17 1004 Plt Count 391 /CUMM 12/26/17 1004 RBC 3.79 /CUMM L 12/26/17 1004 RDW 16.1 % H 12/26/17 1004 WBC 5.0 /CUMM 12/26/17 1004 Serum Alcohol < 10.0 MG/DL 12/26/17 1004 U Benzodiazepines Scrn > 800 NG/ML H 12/26/17 1001 Urine Cannabis Screen > 80.00 NG/ML H 12/26/17 1001 Ur Epithelial Cells MANY H 12/26/17 1001 Ur Leukocyte Esterase SMALL H 12/26/17 1001 Urinalysis LIGHT H 12/26/17 1001 Urine Bacteria MANY H 12/26/17 1001 Urine Nitrite NEG 12/26/17 1001 Urine RBC RARE /HPF 12/26/17 1001 Urine WBC RARE /HPF 12/26/17 1001 SERVICE DATE: 12/26/17- EXAM TYPE: RAD - XRY-CHEST XRAY, TWO VIEWS EXAMINATION: XR CHEST CLINICAL INFORMATION: Cough. Chest breath. COMPARISON: None TECHNIQUE: 2 views of the chest were obtained. FINDINGS: No significant abnormality is noted involving the heart, lungs, mediastinum, bony thorax or soft tissues. Surgical clips in the upper abdomen. IMPRESSION: Unremarkable examination. EKG 12/26/17 showed sinus rhythm @ 72, minor changes since previous tracing, normal EKG, QT 388, QTc 425. Studies Pending at DC: None. Patient Instructions Contact Information Your Psychiatrist on [facility] was Wilfrido Elkins MD * If you are experiencing an emergency related to this hospitalization, please call [phone] to contact the treating psychiatrist or the psychiatrist-on- call. * To Request a copy of your medical records, please contact the Medical Records Department at [phone]. * To request results of studies pending at the time of discharge, please call [phone]. * Continue your Medications until directed to stop by your Healthcare provider. General Medication Information Please continue to take your new medications and your continued home medications , unless otherwise indicated on your discharge medication list, or unless directed by your MD or ELECTRICAL TRYOUT PERSON to stop them. Special Instructions Diet Regular Activity Normal Other Inst/Recommendations See PCP for abnormal labs, including lipids, thyroid and anemia. - Tobacco Use Treatment Offered Post DC Medications Offered: Not Applicable Post DC Tobacco Treatment Plan: Not Applicable - EtOH/Drug Use D/O Treatment Offered Post DC Medications Offered: Med Not Indicated for D/O Post DC EtOH/SubAbuse TX Plan: Other SubAbuse/Dual Pgm ([facility]) Program Appt Date: 01/05/18 Program Appt Time: 1100 Metabolic Screening ([x]) Not Applicable, patient not on a neuroleptic. OR () Patient on a neuroleptic(s) . Enter below results for Hemoglobin A1C, and lipid panel if obtained during the last 365 days. BMI: 23.000 Blood Pressure: 110/80 Laboratory Results From [facility] EHR (If applicable): Advance Directives Does the Patient have Medical Advance Directives No/Refused further info Does Pt have Psychiatric Advance Directives? No/Refused further info Does Patient have a Designated Surrogate Decision Maker: No Information About Psychiatric Advance Directives Provided? Refused Discharge Plan Post Hospital Treatment Plan: Returning to live with friend, Gosia. STAY CLEAN!, TAPER OFF BENZOS!
--- NOTE | 2017-12-29 15:17 | SOCIAL WORKER PROG NOTE PSYCH ---
Social Work Progress Note Progress Note 9:47am: This write spoke with Betty at [facility] ([facility]) ) after making an attempt earlier (8:58am) to reach them. Betty stated that the patient missed her intake appointment on 12/24/17. As of this call, she was scheduled for another intake appointment on 01/05/18 at 11am. Betty informed that the wait list for the patient to see a prescriber is 5-6 weeks. Betty confirmed that they do accept patients who are prescribed benzodiazepines. 10:42am: Due to the wait list to see a prescriber with [facility], this travel writer attempted to reach [facility] for their IOP. A vm was left for Gabi Currie at [facility] ([phone]) at 10:42am and 11:44am. Patient stated that she does not have transportation and therefore requested referrals within [place] as she is living with a friend in [place]. This travel writer spoke with Brittani with [facility] ([phone]) who stated that the patient would not be able to utilize [facility]. 11:45am: Theresa Morales (PA student) and this travel writer met with the patient. Patient's friend, Gosia Zepeda ([phone]) attended by phone for a family meeting. Gosia did not have any concerns about the patient discharging today and felt that the admission was not necessary. She was informed of the discharge plans. Gosia confirmed that the patient may return home to live with her upon discharge. Patient will contact Gosia when she is leaving the hospital today. After Gosia hung up, patient remained to meet with Theresa Morales and this travel writer. Patient maintains that she does not want Dr. Montiel to be contacted and refused to sign a POONAM as she stated that she does not plan to pursue further treatment with the provider. Patient denied SI/HI/AH/VH and felt safe discharging today. She stated that her primary care provider, Dr. Jesse Gilmore will prescribe her medications until she sees a provider with [facility]. She was agreeable to this travel writer contacting Dr. Gilmore. Patient stated that she has on 01/08. Patient identified a safety plan in which she would return to the hospital if feeling unsafe or in crisis. She was also informed of the crisis numbers and warm lines which she accepted upon discharge. This travel writer contacted Dr. Gilmore's office and spoke with Emi ([phone]). She confirmed that the patient may use the walk in hours on 01/08/18 for the appointment. Per Dr. Nunez, Emi was informed that the patient has a history of heavy bezodiazepine use and needs to taper off. Emi stated that Dr. Gilmore requested to speak with Dr. Nunez further. This message was relayed to Dr. Nunez. From this conversation, Dr. Gilmore will prescribe medications until the patient is able to see a medication prescriber through [facility]. This travel writer spoke with Betty at [facility] to inform that the patient has a history of heavy benzodiazepine use and needs to taper off. She was also informed that the patient will see Dr. Gilmore for medications while waiting for the prescriber appointment through [facility]. Patient accepted the intake appointment with [facility] for 01/05/18 at 11am and the walk in hours with Dr. Gilmore. She was informed that Dr. Gilmore has agreed to continue to manage her medications until she is able to see a psychiatric provider through [facility]. An authorization to release medications was completed and submitted to the pharmacy. Patient will milk pickup driver her medications before leaving the hospital. She will pick her Klonopin at [facility] close to home as she does not have funds to pay for the medication at the hospital. Patient was provided with bus fare as she stated that she preferred to take the bus home. She stated that she called Gosia to inform that she was leaving. Faxed Referral(s) 1 Referred To: Dr. Jesse Gilmore Transition of Care Documents sent: Health Summary Faxed to: Dr. Jesse Gilmore Fax #: [phone] Faxed by: Sarah Gonzalez [facility] Date faxed: 12/29/17 Time Faxed: [phone] Faxed Referral(s) 2 Referred To: [facility] Transition of Care Documents sent: Health Summary Faxed to: [facility] Fax #: [phone] Faxed by: Sarha Gonzalez [facility] Date faxed: 12/29/17 Time Faxed: [phone]
--- NOTE | 2017-12-29 15:25 | CP SOUTH PROGRESS NOTE PSYCH ---
Psych (Inpt) Progress Note Progress Note Include the following elements, when applicable: Involvement in the active treatment of the patient with behavioral observations of the patient and the patient's response to the treatment. Review of the ongoing treatment process in the context of the treatment plan. Indication of how multi-disciplinary staff members are carrying out the treatment plan. Plans for future interventions and recommendations for revision of the treatment plan. Liaison with other physicians/providers. Progress Note: Case and treatment plan discussed in team meeting. Staff reports that the patient is denying SI. Was rude yesterday and swore. Patient seen at 11:51 a.m. with Karin Gonzalez LCSW and PA student. Feels great. Reports she knows her son is safe and needed to be in halfway (to stop his pattern). Feels her head is clear. Reports she has no money to buy her medications and needs a ride home. Eager for discharge. Refusing to sign a release for Dr. Montiel. Affect is calm and euthymic. Mood is a little anxious at 4/10 because she wants to go home. Sad 1/10, still worried about her son. Denies feeling hopeless, helpless, worthless or guilty. Denies active and passive SI, HI, AH, VH and PI. Sleep: okay, 5-6 hours. Appetite: fine. Energy : a little energetic. Tolerating medications well, without complaint. Feels ready and safe for discharge. Case discussed briefly with PCP, Dr. Jesse Gilmore. IMPRESSION: Condition improved. Okay for discharge today to return to home and friend, Gosia. [facility].
--- NOTE | 2017-12-29 15:34 | DISCHARGE SUMMARY REPORT-PSYCH ---
Visit Information Visit Dates/Diagnosis' Admission Date: 12/26/17 Discharge Date: 12/29/17 Reason for Admission: Suicidal ideation and depression. Psy Discharge Primary Diag: Major depression rec sev Psy Discharge Secondary Diag: Unspecified anxiety d/o Cannabis use d/o R/o benzodiazepine use do Hx thyroidectomy for Grvs Heartburn Anemia Hyperlipidemia Hospital Course Significant Lab Findings: Lab ALT 19 U/L 12/26/17 1004 AST 17 U/L 12/26/17 1004 BUN 8 mg/dL 12/26/17 1004 Carbon Dioxide 27 mmol/L 12/26/17 1004 Chloride 106 mmol/L 12/26/17 1004 Cholesterol 284 MG/DL H 12/28/17 0635 Creatinine 0.6 mg/dL 12/26/17 1004 Estimated GFR > 60 ml/min 12/26/17 1004 Ferritin 7.0 ng/mL L 12/28/17 0635 Free T4 0.76 ng/dL 12/26/17 1004 Glucose 122 mg/dL H 12/26/17 1004 HDL Cholesterol 92 mg/dL H 12/28/17 0635 Hemoglobin A1c 5.7 % 12/28/17 0635 Iron 44 ug/dL 12/28/17 0635 LDL Cholesterol, Calc 177 mg/dL H 12/28/17 0635 Potassium 4.5 mmol/L 12/26/17 1004 Sodium 141 mmol/L 12/26/17 1004 TIBC 486 ug/dL 12/28/17 0635 TSH 7.260 uIU/mL H 12/26/17 1004 Triglycerides 78 mg/dL 12/28/17 0635 Absolute Lymphocytes 0.9 /CUMM L 12/26/17 1004 Hct 32.6 % L 12/26/17 1004 Hgb 10.8 G/DL L 12/26/17 1004 Lymphocytes % 17.9 % L 12/26/17 1004 MPV 6.2 FL L 12/26/17 1004 Plt Count 391 /CUMM 12/26/17 1004 RBC 3.79 /CUMM L 12/26/17 1004 RDW 16.1 % H 12/26/17 1004 WBC 5.0 /CUMM 12/26/17 1004 Serum Alcohol < 10.0 MG/DL 12/26/17 1004 U Benzodiazepines Scrn > 800 NG/ML H 12/26/17 1001 Urine Cannabis Screen > 80.00 NG/ML H 12/26/17 1001 Ur Epithelial Cells MANY H 12/26/17 1001 Ur Leukocyte Esterase SMALL H 12/26/17 1001 Urinalysis LIGHT H 12/26/17 1001 Urine Bacteria MANY H 12/26/17 1001 Urine Nitrite NEG 12/26/17 1001 Urine RBC RARE /HPF 12/26/17 1001 Urine WBC RARE /HPF 12/26/17 1001 SERVICE DATE: 12/26/17- EXAM TYPE: RAD - XRY-CHEST XRAY, TWO VIEWS EXAMINATION: XR CHEST CLINICAL INFORMATION: Cough. Chest breath. COMPARISON: None TECHNIQUE: 2 views of the chest were obtained. FINDINGS: No significant abnormality is noted involving the heart, lungs, mediastinum, bony thorax or soft tissues. Surgical clips in the upper abdomen. IMPRESSION: Unremarkable examination. EKG 12/26/17 showed sinus rhythm @ 72, minor changes since previous tracing, normal EKG, QT 388, QTc 425. Course Complications: None. Consultations: The patient was seen by Dr. Tamika Gregorio for admission H&P. Per her note of : "Assessment/Plan This iss a 57-year-old female with a past medical history of Graves' disease status post thyroidectomy on levothyroxin replacement therapy and GERD on a PPI. She is here with depressive complaints and suicidal ideation. Treatment as per psychiatry. Continue her levothyroxin, continue her PPI and outpatient follow- up on discharge. Problem List: 1. Depression 2. Graves disease" Allergies: Coded Allergies: No Known Allergies (12/06/16) Hospital Course/TX Response: The patient was monitored on the unit for safety and mood disorder. She participated in multi-modal treatments on the unit. Xanax was changed to Klonopin, which is longer-acting. Patient apparently has a long history of prescribed benzodiazepines and these should be taper to off over time. Effexor XR was restarted at 37.5 mg daily. Remeron 7.5 mg qhs was started. Mood and affect have improved. Suicidal ideation has remitted. Progress note from date of discharge, 12/29/17: "Case and treatment plan discussed in team meeting. Staff reports that the patient is denying SI. Was rude yesterday and swore. Patient seen at 11:51 a.m. with Karin Gonzalez LCSW and PA student. Feels great. Reports she knows her son is safe and needed to be in [facility] (to stop his pattern). Feels her head is clear. Reports she has no money to buy her medications and needs a ride home. Eager for discharge. Refusing to sign a release for Dr. Montiel. Affect is calm and euthymic. Mood is a little anxious at 4/10 because she wants to go home. Sad 1/10, still worried about her son. Denies feeling hopeless, helpless, worthless or guilty. Denies active and passive SI, HI, AH, VH and PI. Sleep: okay, 5-6 hours. Appetite: fine. Energy : a little energetic. Tolerating medications well, without complaint. Feels ready and safe for discharge. Case discussed briefly with PCP, Dr. Jesse Gilmore. IMPRESSION: Condition improved. Okay for discharge today to return to home and friend, Gosia. [facility] Discharge HBIPS - Tobacco Use Treatment Offered Post DC Medications Offered: Not Applicable Post DC Tobacco Treatment Plan: Not Applicable - EtOH/Drug Use D/O Treatment Offered Post DC Medications Offered: Med Not Indicated for D/O Post DC EtOH/SubAbuse [place] Plan: Other SubAbuse/Dual Pgm ([facility]) Program Appt Date: 01/05/18 Program Appt Time: 1100 Metabolic Screening - Screen if on a Neuroleptic Medication - Metabolic screening should include: - Blood Pressure, BMI, Glucose or Hgb A1c, & a - Lipid profile from within the past 365 days. Metabolic Screening ([x]) Not Applicable, patient not on a neuroleptic. OR () Patient on a neuroleptic(s) . Enter below results for Hemoglobin A1C, and lipid panel if obtained during the last 365 days. BMI: 23.000 Blood Pressure: 110/80 Laboratory Results From [facility] E[facility] (If applicable): Discharge Instructions General Discharge Information Multiple Neuroleptics: ([x]) Not Applicable OR Document below three failed attempts at monotherapy, or a plan to taper to monotherapy, or augmentation of Clozapine. () Discharge Diet Regular Discharge Activity Normal DC Disposition: Returning to home/roommate Gosia. Referrals Ordered Referrals Provider Referral 01/05/18 For Groups: [[facility]] [facility] [address], [place] [phone] IOP intake appointment: 01/05/18, at 11am Provider Referral 01/08/18 For Providers: [Dr. Jesse Gilmore] Dr. Jesse Gilmore [address] [place], [place] [phone] Patient states that she has an appointment on 01/08/18. She may use walk in hours: 8am-4:30pm Prescriptions Stop taking the following medications: Venlafaxine HCl (Effexor XR) 150 MG CAP.ER.24H ORAL Every Morning Qty = 28 Zolpidem Tartrate (Ambien) 5 MG TABLET ORAL Every night as needed as needed for SLEEP Pantoprazole Sodium (Protonix) 40 MG TABLET.DR ORAL DAILY Levothyroxine Sodium (Synthroid) 100 MCG TABLET ORAL DAILY Qty = 30 Alprazolam (Alprazolam) 1 MG TABLET ORAL TWICE DAILY Quetiapine Fumarate (Seroquel) 200 MG TABLET ORAL TAKE AT BEDTIME Start taking the following new medications: Clonazepam (Klonopin) 1 MG TABLET 1 Tablet ORAL AT BEDTIME Qty = 14 No Refills Comments: Last Taken:12/28/17 Time:9pm Clonazepam (Klonopin) 0.5 MG TABLET 1 Tablet ORAL DAILY Qty = 14 No Refills Comments: Last Taken:12/29/17 Time:7:30am Gabapentin (Gabapentin) 300 MG CAPSULE 1 Capsule ORAL EVERY SIX HOURS NEEDED as needed for ANXIETY/AGITATION/ INSOMNIA Qty = 42 No Refills Comments: Last Taken:12/29/17 Time:6:30am Mirtazapine (Mirtazapine) 7.5 MG TABLET 1 Tablet ORAL AT BEDTIME Qty = 14 No Refills Comments: Last Taken:12/28/17 Time:9pm Venlafaxine HCl (Effexor XR) 37.5 MG CAP.ER.24H 1 Capsule ORAL DAILY Qty = 14 No Refills Comments: Last Taken:12/29/17 Time:7:30am Hydroxyzine Hydrochloride (Atarax) 50 MG TAB 1 Tablet ORAL Q6H as needed for anxiety Qty = 56 No Refills Comments: Last Taken:12/29/17 Time:6:30am Omeprazole (Omeprazole) 20 MG CAPSULE.DR 2 Capsule ORAL DAILY BEFORE BREAKFAST Qty = 28 No Refills Comments: Last Taken:12/29/17 Time:6:30am Levothyroxine Sodium (Synthroid) 100 MCG TABLET 1 Tablet ORAL DAILY Qty = 14 No Refills Comments: Last Taken:12/29/17 Time:6:30am Other Inst/Recommendations See PCP for abnormal labs, including lipids, thyroid and anemia. Studies Pending at Discharge None. Copies To: Deirdre ZHANG,Jesse Vang; [facility]
--- NOTE | 2017-12-29 17:26 | IP INCIDENTAL NOTE PSYCH ---
Incidental Note Notation: Klonopin 1 mg and 0.5 mg prescriptions were sent to [facility] and then cancelled because they were not covered by [facility] med[facility]. Klonopin 1 mg and 0.5 mg prescriptions were then sent to [place] [phone] and then cancelled because 1 mg isn't available and 0.5 mg is not in-stock. I e-Rx'd: Klonopin 0.5 mg tablet : Take 1 tablet by mouth as directed (1 tab qAM and 2 tabs qHS) Disp. 42 NR (last: 12/29/2017 ) by ERICA started on: 12/29/2017 stop on: 01/12/2018 Actions: [Renew] [Prescribe] [Stop] Sent to [facility] in [place]. Patient notified.
== END 2017-12-29 14:20 | DRG 885 ==
LOC: ERH 09:36 → CP SOUTH 14:03 → ERHI 14:03 → ENTRNSPT 16:01 → EDTRNSPT 16:19 → EDTRNSPTSTS 16:19 → CP SOUTH 16:31 → CMPTRNSPT 16:33 → CP SOUTH 12-27 14:05
PROVIDERS: Emergency Medicine; Student in an Organized Health Care Education/Training Program
DX: F33.9 Major depressive disorder, recurrent, unspecified (principal); F41.9 Anxiety disorder, unspecified; D64.9 Anemia, unspecified; F12.90 Cannabis use, unspecified, uncomplicated; E89.0 Postprocedural hypothyroidism
CPT/HCPCS: 36415; 71046; 80307; 81001; 93005; 93010; G0463; G0480